=== PATIENT | female | born 1960 | race Caucasian/White ===

== ENCOUNTER 2023-11-04 20:04 | Emergency (ER) | payer SELFPAY ==
[2023-11-04 20:06] VITALS: BP 122/74
--- NOTE | 2023-11-04 22:24 | ED.MUSCINJ ---
HPI-Injury
General
Chief Complaint: Musculo-Skeletal Complaint
Source: patient
Exam Limitations: none
Time Seen by Provider: 11/04/23 22:06
History of Present Illness-Injury
Initial Injury comments:
63-year-old female presents complaining of persistent right knee pain. She received a lubricant injection [place], [facility], 1 month ago. Since then she has had increased pain to the knee. She is having her knee drained several
times. She came to the [facility] 2 days ago. Her daughter brought her here as she is having persistent pain. Mxqo-ewe-qlqbzue medications are not helping. No injury. No fever. No other complaints at this time
Phy Exam
Physical Exam
Physical Exam:
General: Well-appearing female no acute respiratory distress
Musculoskeletal exam: Right knee tender anteriorly and medially. There is a moderate effusion noted. She is able to fully extend her knee flexion is limited to about 50 degrees. No overlying erythema. No open wounds.
Extremities: No cyanosis
Skin: Warm, no erythema or rash
Injury Course
Orders/Labs/Results
Orders:
Orders
11/04/23 20:09
Knee, Right 4 or More Views [CR Knee- Right 4 Or More View*] Urgent
Comment:
Reason For Exam: pain, swelling
11/04/23 22:22
Knee Immobilizer Right-Treatme ONCE
Hydrocodone 5/APAP 325 [[place] 5/325] 1 tablet PO NOW STA
Prednisone [Deltasone] 50 mg PO NOW STA
MDM/Problems Addressed
Differential Diagnosis Includes:
Right knee discomfort. There is a small effusion. No skin changes or erythema. No fever. Do not suspect septic arthritis. X-rays demonstrate degenerative changes throughout the knee with moderate effusion. I suspect knee pain is related to
underlying degenerative changes versus adverse reaction to recent lubricant injection. Recommended a prednisone course. Will prescribe a limited supply of pain medication secondary to severe pain. Knee immobilizer applied and was referred to
orthopedics
*Critical Care Note
Total Time (30-74mins, 75-104mins- exclusive of procedures): Not Applicable
ED Attending Note
-
Portions of this chart may have been created with voice recognition software.� Occasional wrong word or��sound alike� substitutions may have occurred due to the inherent limitations of voice recognition software.
Discharge Plan
Departure
Patient Disposition: Home (Routine Discharge)
Date of Disposition: 11/04/23
Time of Disposition: :
Patient with high blood pressure during this ER visit?: No
Discharge Problem:
Knee pain
Instructions: Knee Pain (DC)
Prescriptions:
New
hydrocodone-acetaminophen 5-300 mg tablet
1 tab PO Q8H PRN (Reason: Pain) Qty: 10 0RF
prednisone 20 mg tablet
40 mg PO DAILY 5 Days Qty: 10 0RF
Referrals:
UNKNOWN - PT DOES,NOT KNOW [Family Provider] -
Activity Restrictions/Additional Instructions:
Use brace for support when ambulating. Use prednisone as directed. Use prescribed medicine as needed for severe pain. Follow-up with orthopedics for further evaluation
Interventions
Interventions:
*Risk Screen - Suicide Last Done: 11/04/23 21:19
*General Assessment Last Done: 11/04/23 21:19
*Neglect/Abuse Screening Last Done: 11/04/23 21:19
ED-Musculoskeletal Assessment Last Done: 11/04/23 21:19
Discharge Date and Time
Print Language: GABONESE
[2023-11-04] MEDS: DELTASONE 50 MG PO (22:34)
[2023-11-04] MEDS: NORCO 5/325 1 TABLET PO (22:34)
[2023-11-04 22:46] VITALS: BP 122/74
== END 2023-11-04 22:46 | disposition home or self-care (01) ==
LOC: EMR 20:04
PROVIDERS: EMERGENCY PHYSICIAN Emergency Medicine
DX: M25.561 Pain in right knee (principal); M25.461 Effusion, right knee; Z88.8 Allergy status to other drugs, medicaments and biological substances
CPT/HCPCS: 99283; 29505; 73564

== ENCOUNTER 2023-11-10 19:51 | Emergency (ER) | payer SELFPAY ==
[2023-11-10 19:55] VITALS: BP 143/77
[2023-11-10 21:03] VITALS: BMI 33.3
[2023-11-10 22:00] VITALS: BP 134/76
[2023-11-10] MEDS: DILAUDID 0.5 MG IV ×2 (22:14→23:39)
[2023-11-10 22:20] LABS: % Basophils 0.2 % (0-2); % Eosinophils 0.5 % (0-6); % Immature Granulocytes 0.5 % (0-0.5); % Lymphocytes 22.3 % (20.5-51.1); % Monocytes 5.5 % (1.7-9.3); Absolute Eosinophils 0.1 10^3/uL (0-0.7); Absolute Immature Granulocytes 0.1 10^3/uL (0-0.05); Absolute Lymphocytes 2.7 10^3/uL (1.2-3.4); Absolute Monocytes 0.7 10^3/uL (0.1-0.6); Absolute Neutrophils 8.6 10^3/uL (1.4-6.5); Hematocrit 39.7 % (37.0-47.0); Hemoglobin 13.2 g/dL (12.0-16.0); Mean Corp Hgb Conc. 33.2 g/dL (33.0-37.0); Mean Corpuscular Hgb 27.8 pg (27.0-31.0); Mean Corpuscular Volume 83.8 fL (81.0-99.0); Mean Platelet Volume 8.9 fL (7.4-10.4); Nucleated Red Blood Cells % 0 %; Platelet Count 353 10^3/uL (130-400); Red Blood Cell Count 4.74 10^6/uL (4.20-5.40); Red Cell Dist. Width 13.1 % (11.5-14.5); White Blood Cell Count 12.1 10^3/uL (4.8-10.8)
[2023-11-10 22:29] LABS: Erythrocyte Sed Rate 77 mm/hour (0-20)
[2023-11-10 22:38] LABS: Blood Urea Nitrogen 26 mg/dl (7-17); Calcium 9.9 mg/dl (8.4-10.2); Carbon Dioxide 28 mmol/L (22-30); Chloride 103 mmol/L (98-107); Estimated Creatinine Clearance 72 ml/min; Glucose 122 mg/dl (70-99); Potassium 4.3 mmol/L (3.5-5.1); Sodium 143 mmol/L (135-145); eGFR > 60.00
[2023-11-11] VITALS: BP 145/78
--- NOTE | 2023-11-11 00:32 | ED.GENMED ---
Addendum entered and electronically signed by Ronn Menendez PA-C 11/12/23 10:00:
Preliminary joint fluid culture shows presumptive Staphylococcus aureus with many white blood cells and no organisms seen on the Gram stain. Spoke with the patient's daughter who answers for her. The patient is at this moment being evaluated by
the orthopedic doctor in the office. I advised that they follow-up with the culture.
Original Note:
History of Present Illness
General
Chief Complaint: Musculo-Skeletal Complaint
Source: patient and family
Time Seen by Provider: 11/10/23 21:11
History of Present Illness
History of Present Illness:
63-year-old female who again presents with right knee pain. The patient had an injection and arthrocentesis in [facility] about 1 month ago. she recently came to the . She has an appointment with orthopedics but has not seen them yet. She was
seen in emergency department given steroids and pain control. She took all of the medications but the pain persist. The pain is persistent even when she is sitting in the chair. No fevers. No vomiting.
Past History
Past History
ED Past Medical History: HTN
ED Past Surgical History: Cholecystectomy
Phy Exam
Physical Exam
Physical Exam:
CONSTITUTIONAL Vital signs reviewed, Patient alert and oriented to person, place and time. Well-appearing
HEAD atraumatic, normocephalic.
EYES eyelids normal to inspection, Extraocular muscles intact, Conjunctiva normal, Sclera normal.
NECK normal range of motion, Trachea midline, no jugular venous distention.
RESP no respiratory distress
BACK No obvious deformities
UPPER EXTREMITY Gross Range of motion normal, gross motor strength normal
LOWER EXTREMITY unable to range the right knee. It is warm to touch when compared to the left. There is no redness. There is diffuse tenderness and she is unable to actively or passively range the right knee. She has normal distal pulses
NEURO Speech normal, No focal motor deficits include, London coma scale 15, Memory normal, Cranial Nerves intact to screening exam.
SKIN Skin warm, dry, and normal in color.
PSYCHIATRIC Patient oriented to person place and time, Normal affect.
Course
Orders/Labs/Results
Orders:
Orders
11/10/23 21:48
HYDROmorphone [Dilaudid] 0.5 mg IV NOW STA
11/10/23 22:12
Basic Metabolic Panel Urgent
CRP [C-Reactive Protein] Urgent
Complete Blood Count/With Diff Urgent
ESR [Erythrocyte Sed Rate] Urgent
11/10/23 22:23
Ondansetron Injectable [Zofran] 4 mg IV NOW STA
11/10/23 23:36
HYDROmorphone [Dilaudid] 0.5 mg IV NOW STA
11/10/23 23:48
Body Fluid Cell Count Urgent
What is the Body Fluid: joint
Date Specimen was Collected: 11/10/23
Time Specimen was Collected: 23:37
Comment: with DIFF
Body Fluid Crystals Urgent
What is the Body Fluid: joint
Date Specimen was Collected: 11/10/23
Time Specimen was Collected: 23:37
Body Fluid Glucose Urgent
Fluid Source: Other
Date Specimen was Collected: 11/10/23
Time Specimen was Collected: 23:37
Fluid Culture with Gram Stain Urgent
DIAMOND Source: Joint Fluid
Specimen Description:
Date Specimen was Collected: 11/10/23
Time Specimen was Collected: 23:37
11/11/23 00:46
Ondansetron Injectable [Zofran] 4 mg .ROUTE .STK-MED ONE
11/11/23 01:07
Ketorolac [Toradol] 15 mg IV NOW STA
Abnormal Lab Results
11/10/23
22:12
WBC 12.1 H 10^3/uL
(4.8-10.8)
Abs Immat Gran (auto) 0.1 H 10^3/uL
(0-0.05)
Absolute Neuts (auto) 8.6 H 10^3/uL
(1.4-6.5)
Absolute Monos (auto) 0.7 H 10^3/uL
(0.1-0.6)
ESR 77 H mm/hour
(0-20)
BUN 26 H mg/dl
(7-17)
Glucose 122 H mg/dl
(70-99)
C-Reactive Protein 34.30 H mg/L
(0.0-10.00)
11/10/23 22:12
11/10/23 22:12
Vital Signs
Initial and Last Documented VS:
Initial Vital Signs
Temp Pulse Resp BP Pulse Ox
98.3 F 69 18 143/77 98
11/10/23 19:55 11/10/23 19:55 11/10/23 19:55 11/10/23 19:55 11/10/23 19:55
Last Documented Vital Signs
Temp Pulse Resp BP Pulse Ox
98.5 F 88 16 145/78 96
11/10/23 22:00 11/11/23 00:00 11/11/23 00:00 11/11/23 00:00 11/11/23 00:00
Procedures
Incision/Drainage/Joint Aspiration
Right Knee:
Anethesia: 1% Lidocaine with Epi
Preparation: cleaned with Betadine
Type of procedure: aspiration
How much fluid was obtained?: number in mls (5mls)
Fluid description: cloudy and blood tinged
Treatment: left open for drainage and bandaid applied
MDM/Problems Addressed
MDM/Problems Addressed:
Knee pain
*Pulse Oximetry
Patient hypoxic: no
*Critical Care Note
Total Time (30-74mins, 75-104mins- exclusive of procedures): Not Applicable
Data Reviewed
Source: patient
Further Testing Considered But Not Given:
Consider repeat x-rays but she just had x-rays 6 days ago
Patient Management
Escalation/DeEscalation of care consider admission/obs:
Unable to run cell count but Gram stain shows no organisms. Patient does feel better and would like to go home
ED Attending Note
-
Portions of this chart may have been created with voice recognition software.� Occasional wrong word or��sound alike� substitutions may have occurred due to the inherent limitations of voice recognition software.
Discharge Plan
Departure
Patient Disposition: Home (Routine Discharge)
Date of Disposition: 11/11/23
Time of Disposition: 02:15
Patient with high blood pressure during this ER visit?: Yes
Discharge Problem:
Degenerative joint disease
Instructions: Osteoarthritis
Prescriptions:
New
hydrocodone-acetaminophen 5-325 mg tablet
2 tab PO Q6H PRN (Reason: Pain) Qty: 14 0RF
No Action
hydrocodone-acetaminophen 5-300 mg tablet
1 tab PO Q8H PRN (Reason: Pain) Qty: 10 0RF
prednisone 20 mg tablet
40 mg PO DAILY 5 Days Qty: 10 0RF
Referrals:
NONE,* [Family Provider] -
Activity Restrictions/Additional Instructions:
Please use ibuprofen every 6 hours. Return immediately for fevers, swelling, worsening pain or any other concerns. Please see orthopedics in follow-up as planned.
Interventions
Interventions:
*Risk Screen - Suicide Last Done: 11/10/23 19:55
*General Assessment Last Done: 11/10/23 19:55
*Neglect/Abuse Screening Last Done: 11/10/23 19:55
ED-Musculoskeletal Assessment Last Done: 11/10/23 21:03
Discharge Date and Time
Print Language: NEPALI
[2023-11-11 00:37] LABS: Body Fluid Glucose < 30 mg/dl
[2023-11-11] MEDS: ZOFRAN 4 MG IV (00:46)
[2023-11-11 00:52] LABS: Body Fluid Granulocytes 95 %; Body Fluid Lymphocytes 1 %; Body Fluid Macrophages 4 %
[2023-11-11] MEDS: TORADOL 15 MG IV (01:35)
[2023-11-11 02:45] VITALS: BP 142/69
== END 2023-11-11 02:45 | disposition home or self-care (01) ==
LOC: EMR 19:51
PROVIDERS: EMERGENCY PHYSICIAN Emergency Medicine
DX: M17.11 Unilateral primary osteoarthritis, right knee (principal); I10 Essential (primary) hypertension; Z90.49 Acquired absence of other specified parts of digestive tract
CPT/HCPCS: 99284; 20610; 96374; 96375; 96376; 80048; 82945; 85025; 85652; 86140; 87015; 87070; 87147; 87186; 87205; 89051; 89060

== ENCOUNTER 2023-11-12 13:29 | Inpatient (IN) | payer OTHER, SELFPAY ==
[2023-11-12] VITALS (17 sets, daily range): BP systolic 111–142; BP diastolic 55–79; BMI 33.0; BMI 31.5
--- NOTE | 2023-11-12 10:48 | ED.MUSCINJ ---
HPI-Injury
General
Chief Complaint: Musculo-Skeletal Complaint
Source: patient
Exam Limitations: none
Time Seen by Provider: 11/12/23 10:32
History of Present Illness-Injury
Initial Injury comments:
63-year-old female presents with persistent and increasing right knee pain. She was here 2 days ago had a knee aspiration performed and actually followed up with orthopedics today. At the time the orthopedic follow-up her culture did not return
however did return soon after and culture was reviewed and demonstrates possible presumptive Staphylococcus aureus in the knee. There are no crystals seen on the fluid analysis. Patient notes increased pain despite prednisone. She is recently
moved here from [facility]. Before moving here she had an injection in her knee of what sounds like a lubricant injection. She was seen here initially about 2 weeks ago thought to have an inflammatory response prescribe prednisone but pain did not
improve. She denies fevers. She is not a diabetic.
Past History
Past History
ED Past Medical History: HTN
ED Past Surgical History: Cholecystectomy
Phy Exam
Physical Exam
Physical Exam:
General: Uncomfortable appearing female no acute respiratory distress
HEENT: Normocephalic atraumatic
Heart: Regular rate and rhythm no murmur
Lungs: Clear no wheeze
Musculoskeletal exam: Right knee somewhat warm to the touch diffusely tender with limited range of motion. She has been at approximately 20 degrees however any attempt of straightening her knee or flexing her knee further reproduces significant
pain. No overlying erythema
Vascular: 2+ Dorsalis pedis pulse right foot
Injury Course
Orders/Labs/Results
Orders:
Orders
11/12/23 10:49
CRP [C-Reactive Protein] Urgent
Complete Blood Count/With Diff Urgent
Comprehensive Metabolic Panel Urgent
Sed Rate [Erythrocyte Sed Rate] Stat
Abnormal Lab Results
11/12/23
10:49
WBC 12.4 H 10^3/uL
(4.8-10.8)
Abs Immat Gran (auto) 0.1 H 10^3/uL
(0-0.05)
Absolute Neuts (auto) 9.3 H 10^3/uL
(1.4-6.5)
Absolute Monos (auto) 0.7 H 10^3/uL
(0.1-0.6)
Immature Gran % 0.6 H %
(0-0.5)
Lymphocytes % 18.1 L %
(20.5-51.1)
ESR 96 H mm/hour
(0-20)
BUN 23 H mg/dl
(7-17)
Glucose 118 H mg/dl
(70-99)
C-Reactive Protein 158.60 H mg/L
(0.0-10.00)
11/12/23 10:49
11/12/23 10:49
MDM/Problems Addressed
Differential Diagnosis Includes:
Patient here recently and called back secondary to bacteria showing up in synovial fluid culture from right knee. On exam her knee is exquisitely tender with decreased range of motion. Concerned now at this point is septic arthritis. There is no
crystals seen on the analysis. Will check labs and inflammatory markers.
*Critical Care Note
Total Time (30-74mins, 75-104mins- exclusive of procedures): Not Applicable
Update Note
Update Note:
Sed rate and CRP and white blood cell count in the blood work are elevated. Concern is septic arthritis. Notified orthopedics as well as medicine. Patient last had anything to eat or drink at 8 AM this morning. She had ibuprofen with a couple
sips of water. Patient was told to be n.p.o. Held off on antibiotics for surgical intervention
ED Attending Note
-
Portions of this chart may have been created with voice recognition software.� Occasional wrong word or��sound alike� substitutions may have occurred due to the inherent limitations of voice recognition software.
Discharge Plan
Departure
Patient Disposition: Admit
Date of Disposition: 11/12/23
Time of Disposition: 12:26
Admit to: Med/Surg
Presentation/result/management discussed w/ accepting MD/DO: Hospitalist
Discharge Problem:
Septic arthritis
Prescriptions:
No Action
hydrocodone-acetaminophen 5-300 mg tablet
1 tab PO Q8H PRN (Reason: Pain) Qty: 10 0RF
prednisone 20 mg tablet
40 mg PO DAILY 5 Days Qty: 10 0RF
hydrocodone-acetaminophen 5-325 mg tablet
2 tab PO Q6H PRN (Reason: Pain) Qty: 14 0RF
Referrals:
NONE,* [Family Provider] -
Interventions
Interventions:
*Risk Screen - Suicide Last Done: 11/12/23 10:25
*General Assessment Last Done: 11/12/23 10:25
*Neglect/Abuse Screening Last Done: 11/12/23 10:25
*ED COVID-19 Vaccine History Last Done: 11/12/23 10:25
ED-Musculoskeletal Assessment Last Done: 11/12/23 10:52
Discharge Date and Time
Print Language: SLOVENIAN
[2023-11-12 11:04] LABS: % Basophils 0.2 % (0-2); % Eosinophils 0.7 % (0-6); % Immature Granulocytes 0.6 % (0-0.5); % Lymphocytes 18.1 % (20.5-51.1); % Monocytes 5.3 % (1.7-9.3); % Neutrophils 75.1 % (42.2-75.2); Absolute Eosinophils 0.1 10^3/uL (0-0.7); Absolute Immature Granulocytes 0.1 10^3/uL (0-0.05); Absolute Lymphocytes 2.2 10^3/uL (1.2-3.4); Absolute Monocytes 0.7 10^3/uL (0.1-0.6); Absolute Neutrophils 9.3 10^3/uL (1.4-6.5); Hematocrit 37.6 % (37.0-47.0); Hemoglobin 12.4 g/dL (12.0-16.0); Mean Corpuscular Hgb 27.8 pg (27.0-31.0); Mean Corpuscular Volume 84.3 fL (81.0-99.0); Mean Platelet Volume 9.3 fL (7.4-10.4); Nucleated Red Blood Cells % 0 %; Platelet Count 363 10^3/uL (130-400); Red Blood Cell Count 4.46 10^6/uL (4.20-5.40); Red Cell Dist. Width 13.2 % (11.5-14.5); White Blood Cell Count 12.4 10^3/uL (4.8-10.8)
[2023-11-12 11:09] LABS: Erythrocyte Sed Rate 96 mm/hour (0-20)
[2023-11-12 11:17] LABS: ALT (SGPT) 16 U/L (0-35); AST (SGOT) 16 U/L (14-36); Albumin 3.7 g/dl (3.5-5.0); Alkaline Phosphatase 86 U/L (38-126); Blood Urea Nitrogen 23 mg/dl (7-17); Calcium 9.9 mg/dl (8.4-10.2); Carbon Dioxide 30 mmol/L (22-30); Chloride 100 mmol/L (98-107); Estimated Creatinine Clearance 62 ml/min; Glucose 118 mg/dl (70-99); Potassium 3.9 mmol/L (3.5-5.1); Sodium 142 mmol/L (135-145); Total Bilirubin 0.6 mg/dl (0.2-1.3); Total Protein 6.9 g/dl (6.3-8.2); eGFR > 60.00
--- NOTE | 2023-11-12 12:32 | HPS.HSE ---
Addendum entered and electronically signed by YUSEF Rivera 11/12/23 14:23:
please NOte Pt is from [facility] NOT [facility]
Addendum entered and electronically signed by Quan Martinez MD 11/12/23 14:14:
I saw and examined the patient.
The DIRECTOR OF VOLUNTEER SERVICES or PA's note was reviewed and I agree with the note.
Comment: 63-year-old female with history of hypertension, arthritis came to the hospital with right knee pain and swelling. Patient has been here previously and was discharged with orthopedics follow-up. Patient also had arthrocentesis which was
consistent with Staph aureus. Consult orthopedics, ID. N.p.o. for OR. Will need antibiotics after surgery. Recently moved from [facility]. Discussed with son-in-law at bedside.
General: Conversant, Pain and Obese
HEENT: NormoCephalic, Anicteric, Moist mucous membranes
Cardiac: S1/S2 and Regular Rhythm; No Murmur
Breast: Deferred by me
GI: Soft, Non Tender, Non Distended, Normal Bowel Sounds
Rectal: Deferred by Provider
Genito-urinary: Deferred by me
Musculoskeletal: No Clubbing, No Cyanosis, No Edema and Other (Right knee pain, right knee swelling, limited extension of right knee secondary to joint swelling, calf nontender, distal sensation is intact)
Neuro: AO x 3 (Per son-in-law at bedside translating Greenlandic), Cranial Nerves Intact and No Sensory Deficits; No Slurred Speech, Facial Droop or Tremors
Psych: Calm
I spent a total of 77 minutes with the patient or on the floor. More than 50% of this time involved counseling and coordination of care.
Original Note:
Family Physician
-
Family Physician: * NONE
Chief Complaint
-
Right knee pain, swelling
History of Present Illness
63-year-old female complaining of increased pain to her right knee with swelling. She had knee aspiration performed 2 days ago 11/10/2023 by emergency department. She followed up with Ortho today her culture today did show Staphylococcus aureus
from that aspiration. There were no crystals in her fluid analysis. She was sent to ER for admission. She was seen in the ED and has been on oral prednisone 40 mg for the past 5 days since
11/04/2023 for pain without relief. She recently moved here from [facility] where she had prior injections in the knee with hyaluronic acid injections confirmed with daughter and son-in-law via entry operator maxi. She reported pain 2 days after her
injection to her knee while in [place] along with a 2-day grade fever. She has had injections of the same hyaluronic acid to her left knee without complications. She just arrived 1 week ago from [facility] to permanently live with her daughter here
in the [facility]. She is currently no green card no health insurance and is waiting for paperwork to be processed. She denies fever, chills, chest pain, palpitations, shortness with, cough, abdominal pain, nausea, vomiting, diarrhea, urinary symptoms.
She has past medical history of hypertension. She has never had any complications with anesthesia
Medical History
Past Medical History
Past Medical History: Reports Other
Additional Past Medical History:
HTN
Degenerative joint disease
Past Surgical History: Reports Other
Additional Past Surgical History:
Cholecystectomy
Right knee hyaluronic acid injection few weeks ago
History of multiple hyaluronic acid injections to left knee
Social History
Tobacco: Smoker
Alcohol: None
Drug: None
Personal: Single
Living: With Family (Daughter, son-in-law and multiple children)
Employment: Retired
Family History
Family History: Other (Mother complications hypertension, father age 93 unsure)
Allergies / Home Medications
Allergies reflects when Allergies were last updated in [facility].
Home Medications with original date entered in [facility]
Allergy/Medication List:
Allergies
Allergy/AdvReac Type Severity Reaction Status Date / Time
nicitinic acid - vitamin b-3 Allergy Itching Uncoded 11/12/23 13:13
Home Medications
Lercanidipine 10 Mg 10 mg PO QPM Blood Pressure 11/12/23
Thrombopol 75 Mg 75 mg PO HS blood thinner 11/12/23
bisoprolol fumarate 5 mg tablet 5 mg PO DAILY Blood Pressure 11/12/23
hydrocodone 5 mg-acetaminophen 300 mg tablet 1 tab PO Q8H PRN severe Pain 11/12/23
ibuprofen 200 mg tablet 200 mg PO Q6H PRN mild pain 11/12/23
Review of Systems
-
History Source: Family (Daughter virgilio translating via phone and son-in-law translating at bedside)
Constitutional: Denies Fever, Fatigue or Chills
EENT: Denies Sore Throat or Runny Nose
Respiratory: Denies Cough or Trouble Breathing
Cardiac: Denies Chest Pain, Diaphoresis, Palpitations or Syncope
Abdomen/GI: Denies Abdominal Pain, Nausea, Vomiting, Diarrhea, Constipated, Bloody Stools or Black Stools
: Denies Dysuria, Frequency, Flank Pain, Incontinence, Difficulty Voiding or Urgency
Musculoskeletal: Reports Joint Pain (Right knee), Joint Swelling (Right knee), Edema (Right knee) and Other (Limited extension of right knee secondary to joint swelling)
Skin: Denies Itching or Rash
Neurological: Denies Dizzy, Headache or Weakness
Endocrine: Reports No Symptoms
Hematologic/Lymphatic: Reports No Symptoms
Psych: Reports Calm
Physical Exam
Vital Signs
Vital Signs
Temp Pulse Resp BP Pulse Ox
98.1 F 79 10 122/56 98
11/12/23 10:25 11/12/23 10:48 11/12/23 10:45 11/12/23 10:48 11/12/23 10:48
Physical Exam
General: Conversant, Pain and Obese; No Fever or Chills
HEENT: NormoCephalic, Anicteric, Moist mucous membranes, PERRLA, [place] Conjunctivae and No Ptosis
Respiratory: Clear; No Wheezes, Rales or Rhonchi
Cardiac: S1/S2 and Regular Rhythm; No Murmur, Rub, Gallop or Peripheral Edema
Breast: Deferred by me
GI: Soft, Non Tender, Non Distended, Normal Bowel Sounds and No Hepatosplenomegaly
Rectal: Deferred by Provider
Genito-urinary: Deferred by me
Musculoskeletal: No Clubbing, No Cyanosis, No Edema and Other (Right knee pain, right knee swelling, limited extension of right knee secondary to joint swelling, calf nontender, distal sensation is intact)
Skin: Warm and Dry; No Rash
Neuro: AO x 3 (Per son-in-law at bedside translating Greenlandic), Cranial Nerves Intact and No Sensory Deficits; No Slurred Speech, Facial Droop or Tremors
Psych: Calm
Laboratory Results
-
11/12/23 10:49
11/12/23 10:49
Laboratory Results
Total Bilirubin 0.6 mg/dl (0.2-1.3) 11/12/23 10:49
AST 16 U/L (14-36) 11/12/23 10:49
ALT 16 U/L (0-35) 11/12/23 10:49
Alkaline Phosphatase 86 U/L (38-126) 11/12/23 10:49
Data Reviewed
-
Lab Data: Labs Reviewed by me
Impression/Plan
-
Impression/plan:
Admit to [facility]
Right knee pain/swelling concern for septic arthritis s/p hyaluronic acid injection several weeks ago and is [place]
-WBC 12.4, afebrile
CRP 158.6
-Joint fluid aspiration 11/10/2023 growing Staphylococcus aureus
-Consult Ortho
-Consult ID
-N.p.o. for washout today 11/12/2023
-Hold antibiotics until after surgery per Ortho
-PT/OT/case management consult-patient currently has no green card, no health insurance to cover any healthcare and/or medications
#HTN�benign
BP 122/56
-Continue bisoprolol 5 mg daily
Hold prior hypertensive meds from [facility]
#Obesity due to excess calorie consumption�BMI 33
Weight loss recommended
DVT prophylaxis
Postsurgery May start subcu Lovenox
Full code daughter Virgilio translating via phone and son-in-law translating via bedside as patient speaks Greenlandic but is from [facility]
--- NOTE | 2023-11-12 14:14 | W.PN.UPDATE ---
Update Note
Progress Note Update
For billing purposes only
--- NOTE | 2023-11-12 15:02 | W.PN.UPDATE ---
Update Note
Progress Note Update
Full consult dictated. 63 yo female from [facility] brought to ER with right knee pain. [place] country 6 [place] ago and pain for 5 weeks with difficulty with ambulation. Cultures from ER 2 days ago reveal Staph aureus. Have spoken
with the patient and son in law who translates. Have recommended arthroscopic I&D of the right knee. Risks, benefits, complications and postop expectations discussed. The procedure was discussed. Informed consent obtained. OR today as OR
permits. ID consult. Patient not on antibiotics. Will reculture and start Ancef.
[2023-11-12] MEDS: ZOFRAN 4 MG IV (16:46)
[2023-11-12] MEDS: DILAUDID 0.5 MG IV ×3 (16:48→17:19)
[2023-11-12] MEDS: COMPAZINE 5 MG IV (17:05)
[2023-11-12] MEDS: ANCEF 10 IV (21:26)
[2023-11-12] MEDS: ROXICODONE 5 MG PO (21:35)
[2023-11-13] MEDS: ROXICODONE 5 MG PO ×2 (02:16→06:13)
[2023-11-13 03:00] VITALS: BP 120/66
[2023-11-13] MEDS: ANCEF 10 IV ×3 (06:13→21:42)
[2023-11-13 07:00] VITALS: BP 122/61
[2023-11-13 08:31] LABS: % Basophils 0.1 % (0-2); % Immature Granulocytes 0.4 % (0-0.5); % Lymphocytes 13.9 % (20.5-51.1); % Neutrophils 81.6 % (42.2-75.2); Absolute Immature Granulocytes 0.1 10^3/uL (0-0.05); Absolute Lymphocytes 1.7 10^3/uL (1.2-3.4); Absolute Monocytes 0.5 10^3/uL (0.1-0.6); Absolute Neutrophils 10.1 10^3/uL (1.4-6.5); Hematocrit 35.1 % (37.0-47.0); Hemoglobin 11.6 g/dL (12.0-16.0); Mean Corpuscular Hgb 27.8 pg (27.0-31.0); Mean Platelet Volume 9.3 fL (7.4-10.4); Nucleated Red Blood Cells % 0 %; Platelet Count 360 10^3/uL (130-400); Red Blood Cell Count 4.18 10^6/uL (4.20-5.40); White Blood Cell Count 12.4 10^3/uL (4.8-10.8)
[2023-11-13 08:33] LABS: ALT (SGPT) 14 U/L (0-35); AST (SGOT) 16 U/L (14-36); Albumin 3.5 g/dl (3.5-5.0); Alkaline Phosphatase 89 U/L (38-126); Blood Urea Nitrogen 14 mg/dl (7-17); Calcium 9.2 mg/dl (8.4-10.2); Carbon Dioxide 31 mmol/L (22-30); Chloride 96 mmol/L (98-107); Estimated Creatinine Clearance 85 ml/min; Glucose 124 mg/dl (70-99); Potassium 4.7 mmol/L (3.5-5.1); Sodium 139 mmol/L (135-145); Total Bilirubin 0.4 mg/dl (0.2-1.3); Total Protein 6.5 g/dl (6.3-8.2); eGFR > 60.00
--- NOTE | 2023-11-13 08:36 | CON.ID ---
Consultation
-
Date/Time Consultation Requested: November 12, 2023
Date/Time Consultation Performed: November 13, 2023
Requesting Provider: Dr. Quan Martinez
Performing Provider: Dr. Lalita Up
Reason for Consultation: Septic knee
Chief Complaint / Past History
Chief Complaint
Right knee pain and swelling
History of Present Illness
63-year-old female from [facility] who just recently came to the [facility] about a week and a half ago to stay with her daughter permanently. She was sent to ED from Ortho office 11/11 due to septic knee. She has history of bilateral knee
osteoarthritis and receives injections [place] her [place] country. The right knee received hyaluronic acid injection approximately 6 weeks ago in [facility]. Approximately 2 weeks after the procedure she started having right knee pain, edema, and
redness. Also had subjective fevers. [place] presented to the ER on November 11. The knee was tapped. She was therefore referred to orthopedic who saw her yesterday November 11. By then the synovial fluid returned positive for Staphylococcus
aureus. She was taken to the OR yesterday status post washout of the knee prior to antibiotic. She is currently on cefazolin. Today reports knee pain is controlled. No other complaints.
Past History
Additional Past Medical History:
HTN
bilateral knee OA, s/p multiple hyaluronic acid injection
Cholecystectomy
Allergy History:
nicitinic acid - vitamin b-3 Allergy (Uncoded 11/12/23 13:13)
Itching
Medications Reviewed: Yes
Current Antibiotics:
cefazolin
Social History
Tobacco: Non-Smoker
Alcohol: None
Drug: None
Living: With Family (From [facility], came to [place] mid[place]October 2023 to live with daughter and her family.)
Family History
Family History: Not Pertinent
Review of Systems
Vital Signs
Temp Pulse Resp BP Pulse Ox
98.3 F 84 16 120/66 98
11/13/23 03:00 11/13/23 03:00 11/13/23 03:00 11/13/23 03:00 11/13/23 03:00
Physical Exam
Physical Exam
Constitutional: No Acute Distress and Comfortable
Eyes: No Conjunctival Hemorrhage and Sclera Anicteric
Cardiovascular: Regular Rate and S1/S2
Pulmonary: Clear
Gastrointestinal: Soft, Non Tender, Non Distended and Normal Bowel Sounds
Genito-Urinary: Negative CVA Tenderness
Extremities: Negative Edema
Musculoskeletal: Other (Right knee - postop dressing in place)
Lab / Diagnostic Study Results
11/13/23 06:47
11/13/23 06:47
Abs Immat Gran (auto) 0.1 10^3/uL (0-0.05) H 11/13/23 06:47
Absolute Neuts (auto) 10.1 10^3/uL (1.4-6.5) H 11/13/23 06:47
Absolute Lymphs (auto) 1.7 10^3/uL (1.2-3.4) 11/13/23 06:47
Absolute Monos (auto) 0.5 10^3/uL (0.1-0.6) 11/13/23 06:47
Absolute Basos (auto) 0.0 10^3/uL (0-0.2) 11/13/23 06:47
Immature Gran % 0.4 % (0-0.5) 11/13/23 06:47
Neutrophils % 81.6 % (42.2-75.2) H 11/13/23 06:47
Lymphocytes % 13.9 % (20.5-51.1) L 11/13/23 06:47
Monocytes % 4.0 % (1.7-9.3) 11/13/23 06:47
Eosinophils % 0.0 % (0-6) 11/13/23 06:47
Basophils % 0.1 % (0-2) 11/13/23 06:47
ESR 96 mm/hour (0-20) H 11/12/23 10:49
C-Reactive Protein 158.60 mg/L (0.0-10.00) H 11/12/23 10:49
Microbiology Results
Micro:
11/12/23 15:51 Anaerobic Culture - Preliminary
Knee - Right
11/12/23 15:51 Wound Culture - Preliminary
Knee - Right Gram Stain - Final
Assessment / Plan
# [place] right knee MSSA septic arthritis s/p washout 11/12/23.
- Continue cefazolin 2g IV q8h x 6 weeks.
- Pt without insurance, Green Card, etc. and therefore may not afford self-pay outpatient IV abx.
--- NOTE | 2023-11-13 09:17 | W.PN.UPDATE ---
Update Note
Progress Note Update
Patient seen and examined. Daughter translated by phone. Patient with pain today but slightly better than yesterday. Resting in bed with her knee flexed. AVSS. Pulm: nonlabored. Right knee with swelling and no erythema. Calf soft. Gram
stain from intraop shows gram positive cocci. WBC 12.4. ID consult for antibiotic recommendations. OOB with PT. Will follow.
[2023-11-13] MEDS: ROXICODONE 10 MG PO ×3 (10:15→20:00)
--- NOTE | 2023-11-13 11:21 | W.PN.HOSP.TC ---
Today's Communication/Plan
-
Monitor vital signs
see plan
Pain control
Continue to follow cultures
Continue antibiotics
Daughter updated over the phone
Assessment / Plan
Assessment / Plan
General: Conversant, Pain and Obese
HEENT: NormoCephalic, Anicteric, Moist mucous membranes
Cardiac: S1/S2 and Regular Rhythm; No Murmur
GI: Soft, Non Tender, Non Distended, Normal Bowel Sounds
Musculoskeletal: right knee charlene bandage
Neuro: AO x 3
Psych: Calm
Right knee pain/swelling concern for septic arthritis s/p hyaluronic acid injection [place]
-WBC 12.4, afebrile
CRP 158.6
-Joint fluid aspiration 11/10/2023 growing Staphylococcus aureus
s/p OR by ortho 11/11; OR cx growing gram +
ID following; cw abx per ID
dispo would be challenging since lack of insurance and no greencard and Social security yet
-PT/OT/case management consult-patient currently has no green card, no health insurance to cover any healthcare and/or medications
#HTN�benign
BP 122/56
-Continue bisoprolol 5 mg daily
#Obesity due to excess calorie consumption�BMI 33
Weight loss recommended
DVT prophylaxis
lovenox
Full code
Anticipated Discharge: > 48 hours
Subjective/Interval History
-
Date of Service: November 13, 2023
has pain
Objective Data
-
Labs:
Laboratory Results
11/13/23
06:47
WBC 12.4 H
Hgb 11.6 L
Hct 35.1 L
Plt Count 360
Sodium 139
Potassium 4.7
Chloride 96 L
Carbon Dioxide 31 H
BUN 14
Creatinine 0.6
Glucose 124 H
Calcium 9.2
Total Bilirubin 0.4
AST 16
ALT 14
Alkaline Phosphatase 89
Vital Signs:
Vital Signs
Temp Pulse Resp BP Pulse Ox
99.5 F 83 16 122/61 98
11/13/23 07:00 11/13/23 07:00 11/13/23 07:00 11/13/23 07:00 11/13/23 10:45
I&O
11/12/23 11/13/23 11/14/23
06:59 06:59 06:59
Intake Total 200 / 200
Balance 200 / 200
[2023-11-13 11:22] VITALS: BP 130/70
[2023-11-13 15:46] VITALS: BP 138/65
[2023-11-13] MEDS: LOVENOX 40 MG SC (17:03)
[2023-11-13 19:56] VITALS: BP 129/57
[2023-11-13 23:42] VITALS: BP 125/66
[2023-11-14] MEDS: ROXICODONE 10 MG PO ×4 (03:25→18:05)
[2023-11-14] MEDS: ANCEF 10 IV ×3 (06:10→22:17)
[2023-11-14 07:53] VITALS: BP 139/71
[2023-11-14] MEDS: ZEBETA 5 MG PO (07:55)
[2023-11-14 08:23] LABS: % Basophils 0.2 % (0-2); % Eosinophils 0.3 % (0-6); % Immature Granulocytes 0.6 % (0-0.5); % Lymphocytes 26.8 % (20.5-51.1); % Monocytes 6.4 % (1.7-9.3); % Neutrophils 65.7 % (42.2-75.2); Absolute Immature Granulocytes 0.1 10^3/uL (0-0.05); Absolute Lymphocytes 2.4 10^3/uL (1.2-3.4); Absolute Monocytes 0.6 10^3/uL (0.1-0.6); Absolute Neutrophils 5.9 10^3/uL (1.4-6.5); Hematocrit 35.8 % (37.0-47.0); Hemoglobin 11.8 g/dL (12.0-16.0); Mean Corpuscular Hgb 28.6 pg (27.0-31.0); Mean Corpuscular Volume 86.9 fL (81.0-99.0); Mean Platelet Volume 9.2 fL (7.4-10.4); Nucleated Red Blood Cells % 0 %; Platelet Count 341 10^3/uL (130-400); Red Blood Cell Count 4.12 10^6/uL (4.20-5.40); Red Cell Dist. Width 13.1 % (11.5-14.5)
[2023-11-14 08:47] LABS: ALT (SGPT) < 10 U/L (0-35); AST (SGOT) 15 U/L (14-36); Albumin 3.4 g/dl (3.5-5.0); Alkaline Phosphatase 80 U/L (38-126); Blood Urea Nitrogen 16 mg/dl (7-17); Carbon Dioxide 30 mmol/L (22-30); Chloride 96 mmol/L (98-107); Estimated Creatinine Clearance 72 ml/min; Glucose 104 mg/dl (70-99); Potassium 4.2 mmol/L (3.5-5.1); Sodium 137 mmol/L (135-145); Total Bilirubin 0.5 mg/dl (0.2-1.3); Total Protein 6.3 g/dl (6.3-8.2); eGFR > 60.00
[2023-11-14 09:40] VITALS: BP 119/70; BP 133/73; PULSE 73; O2SAT 96
[2023-11-14] MEDS: DILAUDID 1 MG IV ×3 (09:43→19:35)
[2023-11-14 09:45] VITALS: BP 119/70; BP 133/73; PULSE 83; O2SAT 96
--- NOTE | 2023-11-14 10:09 | W.PN.ID1 ---
Date of Service
Date of Service: November 14, 2023
Today's Communication
Continue ceazolin.
Assessment / Plan
# [place] right knee MSSA septic arthritis s/p washout 11/12/23. OR cx GPC
- Continue cefazolin 2g IV q8h x 6 weeks.
- Pt without insurance, Green Card, etc. and therefore may not afford self-pay outpatient IV abx.
- Await [employer]'s input.
Chief Complaint
-: Other (septic knee)
Subjective / Review of Systems
Daughter at bedside.
Pt right knee pain after PT.
Vital Signs / Physical Exam
Vital Signs
Vital Signs
Temp Pulse Resp BP Pulse Ox
99.1 F 96 20 139/71 94
11/14/23 07:53 11/14/23 07:55 11/14/23 07:53 11/14/23 07:55 11/14/23 07:53
Physical Exam
Constitutional: No Acute Distress
Musculoskeletal: Other (right knee dressing dry)
Objective Data
Lab Data
Lab Results
11/14/23 07:44
11/14/23 07:44
ESR 96 mm/hour (0-20) H 11/12/23 10:49
Estimated Creat Clear 72 ml/min 11/14/23 07:44
Total Bilirubin 0.5 mg/dl (0.2-1.3) 11/14/23 07:44
AST 15 U/L (14-36) 11/14/23 07:44
ALT < 10 U/L (0-35) 11/14/23 07:44
Alkaline Phosphatase 80 U/L (38-126) 11/14/23 07:44
C-Reactive Protein 158.60 mg/L (0.0-10.00) H 11/12/23 10:49
Most recent labs reviewed.
Micro Results:
11/12/23 15:51 Anaerobic Culture - Preliminary
Knee - Right
11/12/23 15:51 Wound Culture - Preliminary
Knee - Right Gram Stain - Final
[2023-11-14] MEDS: VISBIOME 2 CAP PO (11:39)
--- NOTE | 2023-11-14 13:03 | W.PN.HOSP.TC ---
Today's Communication/Plan
-
Cont Abx
MRI knee
Assessment / Plan
Assessment / Plan
63[place] with PMHx of advanced b/l knee OA had hyaluronic injection into her knees in September 2023 and after the injection into R knee - developed worsening swelling and pain. [place] was [place] to the hospital.
Found MSSA septic arthritis
A/P:
#R knee septic artritis related to recent hylauronic injection
Joint aspiration with MSSA
ID follows, cont Ancef IV for 6 weeks. Non-documented - CM for outpatient options
PT/OT
Pain mgmt
MRI knee
#essential HTN
#Obesity with BMI 33
cont home meds
Advise to decrease calorie intake
DVT ppx lovenox
Full code
I have spent at least 57min reviewing chart, test results, communication with consultants and direct patient care
Anticipated Discharge: > 48 hours
Subjective/Interval History
-
Date of Service: November 14, 2023
Objective Data
-
Labs:
Laboratory Results
11/14/23
07:44
WBC 9.0
Hgb 11.8 L
Hct 35.8 L
Plt Count 341
Sodium 137
Potassium 4.2
Chloride 96 L
Carbon Dioxide 30
BUN 16
Creatinine 0.7
Glucose 104 H
Calcium 9.0
Total Bilirubin 0.5
AST 15
ALT < 10
Alkaline Phosphatase 80
Vital Signs:
Vital Signs
Temp Pulse Resp BP Pulse Ox
99.1 F 96 20 139/71 94
11/14/23 07:53 11/14/23 07:55 11/14/23 07:53 11/14/23 07:55 11/14/23 07:53
I&O
11/13/23 11/14/23 11/15/23
06:59 06:59 06:59
Intake Total 200 / 200 700 / 700
Balance 200 / 200 700 / 700
Review of Systems
-
History Source: Patient
All other systems: Reviewed and negative
Physical Exam
-
General: Well Developed, Well Nourished and No Apparent Distress
Respiratory: Clear to Auscultation
Cardiac: Regular Rhythm
GI: Soft, Nontender and Nondistended
Musculoskeletal: Other (R knee swelling without redness)
Skin: Warm
Neuro: Awake, Alert, Oriented and AO x 3
Psych: Calm
--- NOTE | 2023-11-14 13:19 | W.PN.UPDATE ---
Update Note
Progress Note Update
Patient seen and examined. Afebrile. Right knee with swelling and no erythema. Pain with ROM. Use of die tester through iPad in the hospital to communicate. She states that her pain has improved some since surgery but feels that she has bone
rubbing in her knee. I told her that she needs to work on ROM as she will likely develop scar tissue secondary to her infection. I also relayed that it would take many weeks for her to improve as the antibiotics need to help clearing the
infection. WBC decreased. Methicillin sensitive Staph growing on cultures. Appreciate Hospitalist and ID services and care. Will follow.
[2023-11-14 14:39] VITALS: BP 126/65
--- NOTE | 2023-11-14 16:30 | CM ---
CM contacted [facility] to request contact with Janine's daughter to begin the application process for MA. VM left for Janine's daughter to make her aware that she will be receiving a call from [facility].
SNF is being recommended for discharge, however with no insurance, there is a financial barrier for SNF.
CM will continue to follow. Will discuss further when Janine's daughter returns the call.
Plan: Application for MA to be started by [facility] when able. CM will continue to follow.
[2023-11-14] MEDS: LOVENOX 40 MG SC (17:10)
[2023-11-14] MEDS: ZOFRAN 4 MG IV (20:43)
[2023-11-14 23:46] VITALS: BP 124/74
[2023-11-15] MEDS: DILAUDID 1 MG IV ×4 (00:06→23:31)
[2023-11-15] MEDS: TYLENOL 650 MG PO (03:43)
[2023-11-15] MEDS: ANCEF 10 IV ×3 (05:59→22:10)
[2023-11-15 07:11] VITALS: BP 114/68
[2023-11-15] MEDS: ROXICODONE 10 MG PO ×4 (07:32→20:37)
[2023-11-15 08:44] LABS: % Basophils 0.1 % (0-2); % Eosinophils 0.5 % (0-6); % Immature Granulocytes 0.4 % (0-0.5); % Lymphocytes 23.4 % (20.5-51.1); % Monocytes 6.1 % (1.7-9.3); % Neutrophils 69.5 % (42.2-75.2); Absolute Monocytes 0.5 10^3/uL (0.1-0.6); Absolute Neutrophils 5.8 10^3/uL (1.4-6.5); Hemoglobin 11.5 g/dL (12.0-16.0); Mean Corp Hgb Conc. 32.9 g/dL (33.0-37.0); Mean Corpuscular Hgb 27.8 pg (27.0-31.0); Mean Corpuscular Volume 84.7 fL (81.0-99.0); Mean Platelet Volume 9.2 fL (7.4-10.4); Nucleated Red Blood Cells % 0 %; Platelet Count 331 10^3/uL (130-400); Red Blood Cell Count 4.13 10^6/uL (4.20-5.40); Red Cell Dist. Width 12.9 % (11.5-14.5); White Blood Cell Count 8.3 10^3/uL (4.8-10.8)
[2023-11-15 09:05] LABS: ALT (SGPT) 35 U/L (0-35); AST (SGOT) 36 U/L (14-36); Albumin 3.3 g/dl (3.5-5.0); Alkaline Phosphatase 134 U/L (38-126); Blood Urea Nitrogen 15 mg/dl (7-17); Calcium 9.3 mg/dl (8.4-10.2); Carbon Dioxide 32 mmol/L (22-30); Chloride 93 mmol/L (98-107); Estimated Creatinine Clearance 72 ml/min; Glucose 145 mg/dl (70-99); Potassium 4.2 mmol/L (3.5-5.1); Sodium 135 mmol/L (135-145); Total Bilirubin 0.4 mg/dl (0.2-1.3); Total Protein 6.5 g/dl (6.3-8.2); eGFR > 60.00
--- NOTE | 2023-11-15 09:30 | PTCARENOTE ---
Pt was not able to transfer from stretcher to table due to pain and inability to straighten her leg out. PRN pain medication was given prior.
--- NOTE | 2023-11-15 11:10 | W.PN.UPDATE ---
Update Note
Progress Note Update
Patient seen and examined with her daughter at her bedside to translate. Fever last evening. Afebrile now. VSS. RLE: Portals clean, dry and intact. No erythema. No effusion. Swelling noted and patient continues to hold knee in flexed
position. Calf soft. No ankle swelling. WBC 10 today. Continue IV antibiotics. Will continue to follow. Expressed to daughter and patient that it would take some time for her knee to feel better and that she needs to work hard on ROM.
--- NOTE | 2023-11-15 11:31 | W.PN.HOSP.TC ---
Today's Communication/Plan
-
Bcx since reoccurence of fever
Cont Abx
Assessment / Plan
Assessment / Plan
63yo F from [facility], [place] speaking with PMHx of advanced b/l knee OA had hyaluronic injection into her knees in September 2023 and after the injection into R knee - developed worsening swelling and pain. [place] was [place] to the hospital.
Found MSSA septic arthritis. Discharge complicated by the need in 6 weeks of IV Abx and patient just recently in [place] without medical insurance. 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
A/P:
#R knee septic arthritis related to recent hyaluronic injection
Joint aspiration with MSSA
ID follows, cont Ancef IV for 6 weeks. Non-documented - CM for outpatient options
PT/OT and emphasize need to improve ROM
Pain mgmt
MRI knee - could not tolerate positioning, cancelled
#essential HTN
#Obesity with BMI 33
cont home meds
Advise to decrease calorie intake
#Mild Alk.phos elevation
With no clinical signs of abd pain
will follow clinically
Imaging if worsening
DVT ppx lovenox
Full code
I have spent at least 57min reviewing chart, test results, communication with consultants and direct patient care
Anticipated Discharge: > 48 hours
Subjective/Interval History
-
Date of Service: November 15, 2023
Objective Data
-
Labs:
Laboratory Results
11/15/23
07:08
WBC 8.3
Hgb 11.5 L
Hct 35.0 L
Plt Count 331
Sodium 135
Potassium 4.2
Chloride 93 L
Carbon Dioxide 32 H
BUN 15
Creatinine 0.7
Glucose 145 H
Calcium 9.3
Total Bilirubin 0.4
AST 36
ALT 35
Alkaline Phosphatase 134 H
Vital Signs:
Vital Signs
Temp Pulse Resp BP Pulse Ox
98.3 F 93 20 114/68 94
11/15/23 07:11 11/15/23 07:11 11/15/23 07:11 11/15/23 07:11 11/15/23 07:11
I&O
11/14/23 11/15/23 11/16/23
06:59 06:59 06:59
Intake Total 700 / 700 1140 / 1140
Balance 700 / 700 1140 / 1140
Review of Systems
-
History Source: Patient
Constitutional: Reports Fever
Physical Exam
-
General: No Apparent Distress
HEENT: Normocephalic, Atraumatic and Moist Mucous Membranes
Respiratory: Clear to Auscultation
Cardiac: Regular Rhythm and S1/S2; Negative Murmur
GI: Soft, Nontender and Nondistended
Skin: Warm
Neuro: Awake, Alert, Oriented and AO x 3
Psych: Calm
[2023-11-15 12:10] LABS: Phosphorus 4.8 mg/dl (2.5-4.5)
--- NOTE | 2023-11-15 12:27 | CM ---
Received call from the patient's daughter inquiring about Medicaid. Previous CM had left VM for our [facility] department yesterday. CM provided contact information to the daughter to reach out tomorrow when the office is open.
[2023-11-15] MEDS: ZOFRAN 4 MG IV (12:37)
[2023-11-15] MEDS: SENOKOT-S 1 TABLET PO (12:37)
[2023-11-15 15:46] VITALS: BP 112/66
[2023-11-15] MEDS: ZEBETA PO (16:27)
[2023-11-15] MEDS: VISBIOME PO (16:27)
[2023-11-15] MEDS: LOVENOX 40 MG SC (16:30)
[2023-11-15 23:33] VITALS: BP 120/64
[2023-11-16] MEDS: ANCEF 10 IV ×3 (05:57→22:07)
[2023-11-16] MEDS: ROXICODONE 10 MG PO ×4 (05:57→22:07)
--- NOTE | 2023-11-16 06:44 | W.PN.UPDATE ---
Update Note
Progress Note Update
Patient seen and examined. Patient afebrile overnight. RLE: Portals clean, dry and intact. No erythema. No effusion. Swelling noted and patient continues to hold knee in flexed position. Calf soft. No ankle swelling. Blood cultures pending
this morning. Continue IV antibiotics per ID recommendations, currently cefazolin. Continue with pain medications as needed. May apply ice to the knee for discomfort. Encourage patient to perform range of motion of the knee. PT/OT as able. Will
continue to follow
[2023-11-16 07:55] VITALS: BP 117/66
[2023-11-16] MEDS: ZEBETA 5 MG PO (08:08)
[2023-11-16] MEDS: VISBIOME 2 CAP PO (08:08)
[2023-11-16 08:19] LABS: ALT (SGPT) 16 U/L (0-35); AST (SGOT) 19 U/L (14-36); Albumin 3.2 g/dl (3.5-5.0); Alkaline Phosphatase 117 U/L (38-126); Direct Bilirubin 0.3 mg/dl (0.0-0.4); Total Bilirubin 0.4 mg/dl (0.2-1.3); Total Protein 6.3 g/dl (6.3-8.2)
[2023-11-16] MEDS: SENOKOT-S 1 TABLET PO (09:12)
--- NOTE | 2023-11-16 11:02 | W.PN.HOSP.TC ---
Today's Communication/Plan
-
cont Abx
CM cont to work on MA
Assessment / Plan
Assessment / Plan
63[place] with PMHx of advanced b/l knee OA had hyaluronic injection into her knees in September 2023 and after the injection into R knee - developed worsening swelling and pain. [place] was [place] to the hospital.
Found MSSA septic arthritis. Discharge complicated by the need in 6 weeks of IV Abx and patient just recently in [place] without medical [place]. 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
A/P:
#R knee septic arthritis related to recent hyaluronic injection
Joint aspiration with MSSA
ID follows, cont Ancef IV for 6 weeks. Non-documented - CM for outpatient options
PT/OT and emphasize need to improve ROM
Pain mgmt
MRI knee - could not tolerate positioning, cancelled since patient is improving
#essential HTN
#Obesity with BMI 33
cont home meds
Advise to decrease calorie intake
#Mild Alk.phos elevation
With no clinical signs of abd pain
will follow clinically
Imaging if worsening
DVT ppx lovenox
Full code
I have spent at least 37min reviewing chart, test results, communication with consultants and direct patient care
Anticipated Discharge: > 48 hours
Subjective/Interval History
-
Date of Service: November 16, 2023
Objective Data
-
Labs:
Laboratory Results
11/16/23
06:50
Total Bilirubin 0.4
AST 19
ALT 16
Alkaline Phosphatase 117
Vital Signs:
Vital Signs
Temp Pulse Resp BP Pulse Ox
98 F 94 18 117/66 96
11/16/23 07:55 11/16/23 08:08 11/16/23 07:55 11/16/23 08:08 09/03/24 10:14
I&O
11/15/23 11/16/23 11/17/23
06:59 06:59 06:59
Intake Total 1140 / 1140 420 / 420
Balance 1140 / 1140 420 / 420
Review of Systems
-
History Source: Patient
All other systems: Reviewed and negative
Musculoskeletal: Reports Joint Pain (R knee )
Physical Exam
-
General: No Apparent Distress
HEENT: Normocephalic and Atraumatic
Cardiac: Regular Rhythm
GI: Soft, Nontender and Nondistended
Musculoskeletal: Other (R joint not red)
Neuro: Awake, Alert, Oriented and AO x 3
[2023-11-16] MEDS: MAALOX 30 ML PO (11:20)
[2023-11-16 12:35] VITALS: BP 120/57; PULSE 93; O2SAT 94
--- NOTE | 2023-11-16 14:07 | W.PN.ID1 ---
Date of Service
Date of Service: November 16, 2023
Today's Communication
Continue cefazolin.
Assessment / Plan
# [place] right knee MSSA septic arthritis s/p washout 11/12/23. OR cx GPC
- Continue cefazolin 2g IV q8h x 6 weeks through 01/24/24.
- Pt without insurance, Green Card, etc. and therefore may not afford self-pay outpatient IV abx.
- Appreciate casey saw operator's efforts.
# Post-op fever - improving
-Blood cx's neg to date.
Chief Complaint
-: Other (septic knee)
Vital Signs / Physical Exam
Vital Signs
Vital Signs
Temp Pulse Resp BP Pulse Ox
98 F 94 18 117/66 96
11/16/23 07:55 11/16/23 08:08 11/16/23 07:55 11/16/23 08:08 11/16/23 10:14
Selected Entries
11/15/23
15:46
Temp 100.7 F H
Physical Exam
Constitutional: No Acute Distress
Cardiovascular: Regular Rate and S1/S2
Pulmonary: Clear
Gastrointestinal: Soft, Non Tender and Non Distended
Objective Data
Lab Data
Lab Results
11/15/23 07:08
11/15/23 07:08
ESR 96 mm/hour (0-20) H 11/12/23 10:49
Estimated Creat Clear 72 ml/min 11/15/23 07:08
Total Bilirubin 0.4 mg/dl (0.2-1.3) 11/16/23 06:50
AST 19 U/L (14-36) 11/16/23 06:50
ALT 16 U/L (0-35) 11/16/23 06:50
Alkaline Phosphatase 117 U/L (38-126) 11/16/23 06:50
C-Reactive Protein 158.60 mg/L (0.0-10.00) H 11/12/23 10:49
Most recent labs reviewed.
Micro Results:
11/15/23 12:13 Blood Culture - Preliminary
Blood/Venous No Growth in 24 hours- Final report to follow
11/15/23 11:46 Blood Culture - Preliminary
Blood/Venous No Growth in 24 hours- Final report to follow
11/12/23 15:51 Anaerobic Culture - Final
Knee - Right NO ANAEROBES ISOLATED
11/12/23 15:51 Wound Culture - Final
Knee - Right S aureus-Methicillin Sensitive
Gram Stain - Final
[2023-11-16 15:34] VITALS: BP 135/61
[2023-11-16] MEDS: LOVENOX 40 MG SC (17:36)
[2023-11-16] MEDS: COLACE 100 MG PO (22:07)
[2023-11-16] MEDS: ZOFRAN 4 MG IV (22:30)
[2023-11-16 23:17] VITALS: BP 94/61
[2023-11-17] MEDS: ANCEF 10 IV ×3 (05:56→21:14)
[2023-11-17 07:35] VITALS: BP 158/94
--- NOTE | 2023-11-17 07:55 | W.PN.UPDATE ---
Update Note
Progress Note Update
Patient seen and examined. Patient afebrile overnight. She does endorse improvement in her symptoms since yesterday.
RLE: Portals clean, dry and intact. No erythema. No effusion. Swelling noted and patient continues to hold knee in flexed position. Patient endorses pain with attempted ROM. Calf soft. No ankle swelling.
Blood cultures without growth after 24 hours. . Continue IV antibiotics per ID recommendations, currently cefazolin. Continue with pain medications as needed. May apply ice to the knee for discomfort. Encourage patient to perform range of motion of
the knee. PT/OT as able. Will continue to follow.
[2023-11-17] MEDS: COLACE 100 MG PO ×2 (08:52→21:08)
[2023-11-17] MEDS: VISBIOME 2 CAP PO (08:52)
[2023-11-17] MEDS: ZEBETA 5 MG PO (08:52)
[2023-11-17] MEDS: ROXICODONE 10 MG PO ×3 (08:53→21:08)
--- NOTE | 2023-11-17 11:13 | W.PN.HOSP.TC ---
Today's Communication/Plan
-
Had BM today - cont laxatives
cont Abx
pending MA
Assessment / Plan
Assessment / Plan
63[place] speaking with PMHx of advanced b/l knee OA had hyaluronic injection into her knees in September 2023 and after the injection into R knee - developed worsening swelling and pain. [place] was [place] to the hospital.
Found MSSA septic arthritis. Discharge complicated by the need in 6 weeks of IV Abx and patient just recently in [place] medical [place]. 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
A/P:
#R knee septic arthritis related to recent hyaluronic injection
Joint aspiration with MSSA
ID follows, cont Ancef IV for 6 weeks. Non-documented - CM for outpatient options
PT/OT and emphasize need to improve ROM
Pain mgmt
MRI knee - could not tolerate positioning, cancelled since patient is improving
#essential HTN
#Obesity with BMI 33
cont home meds
Advise to decrease calorie intake
#Mild Alk.phos elevation
With no clinical signs of abd pain
will follow clinically
Imaging if worsening
DVT ppx lovenox
Full code
I have spent at least 37min reviewing chart, test results, communication with consultants and direct patient care
Anticipated Discharge: > 48 hours
Subjective/Interval History
-
Date of Service: November 17, 2023
Objective Data
-
Vital Signs:
Vital Signs
Temp Pulse Resp BP Pulse Ox
98.1 F 87 18 158/94 96
11/17/23 07:35 11/17/23 07:35 11/17/23 07:35 11/17/23 07:35 11/17/23 09:15
I&O
11/16/23 11/17/23 11/18/23
06:59 06:59 06:59
Intake Total 420 / 420 720 / 720
Balance 420 / 420 720 / 720
Review of Systems
-
All other systems: Reviewed and negative
Constitutional: Reports No Symptoms
Physical Exam
-
General: Well Developed and Well Nourished
Respiratory: Clear to Auscultation
Cardiac: Regular Rhythm
GI: Soft, Nontender and Nondistended
Musculoskeletal: No Clubbing, No Cyanosis and No Edema
Neuro: Awake, Alert, Oriented and AO x 3
Psych: Calm
--- NOTE | 2023-11-17 13:07 | W.PN.ID1 ---
Addendum entered and electronically signed by Lalita Up MD 11/18/23 15:46:
Correction: cefazolin 2g IV q8h x 6 weeks through 12/24/23 (not 01/24/24).
Original Note:
Date of Service
Date of Service: November 17, 2023
Today's Communication
Consider trial of high dose cephalexin 1000mg po q6hr x 8 weeks. With GoodRx coupon, one month supply cost of cephalexin can be as low as $25.00
Assessment / Plan
# [place] right knee MSSA septic arthritis s/p washout 11/12/23. OR cx MSSA
-Management complicated by lack of insurance.
- Optimal regimen is cefazolin 2g IV q8h x 6 weeks through 01/24/24.
- Can consider trial of high dose cephalexin 1000mg po q6hr x 8 weeks. With GoodRx coupon, one month supply cost of cephalexin can be as low as $25.00
Son-in-law will discuss with his .
# Post-op fever - resolved
-Blood cx's neg to date.
Chief Complaint
-: Other (septic knee)
Subjective / Review of Systems
Son-in-law at bedside. Pt knee pain better.
Vital Signs / Physical Exam
Vital Signs
Vital Signs
Temp Pulse Resp BP Pulse Ox
98.1 F 87 18 158/94 96
11/17/23 07:35 11/17/23 07:35 11/17/23 07:35 11/17/23 07:35 11/17/23 09:15
Physical Exam
Constitutional: No Acute Distress and Comfortable
Cardiovascular: Regular Rate and S1/S2
Pulmonary: Clear
Gastrointestinal: Soft, Non Tender and Non Distended
Neurological: AO x 3
Objective Data
Lab Data
Lab Results
11/15/23 07:08
11/15/23 07:08
ESR 96 mm/hour (0-20) H 11/12/23 10:49
Estimated Creat Clear 72 ml/min 11/15/23 07:08
Total Bilirubin 0.4 mg/dl (0.2-1.3) 11/16/23 06:50
AST 19 U/L (14-36) 11/16/23 06:50
ALT 16 U/L (0-35) 11/16/23 06:50
Alkaline Phosphatase 117 U/L (38-126) 11/16/23 06:50
C-Reactive Protein 158.60 mg/L (0.0-10.00) H 11/12/23 10:49
Most recent labs reviewed.
Micro Results:
11/15/23 12:13 Blood Culture - Preliminary
Blood/Venous No Growth in 48 hours- Final report to follow
11/15/23 11:46 Blood Culture - Preliminary
Blood/Venous No Growth in 48 hours- Final report to follow
11/12/23 15:51 Anaerobic Culture - Final
Knee - Right NO ANAEROBES ISOLATED
11/12/23 15:51 Wound Culture - Final
Knee - Right S aureus-Methicillin Sensitive
Gram Stain - Final
[2023-11-17 15:15] VITALS: BP 127/63
[2023-11-17] MEDS: LOVENOX 40 MG SC (17:33)
[2023-11-17] MEDS: ROXICODONE 2.5 MG PO ×2 (17:33→23:48)
[2023-11-17 23:38] VITALS: BP 117/56
[2023-11-17] MEDS: TYLENOL 650 MG PO (23:43)
[2023-11-18] MEDS: ANCEF 10 IV ×3 (05:18→21:14)
--- NOTE | 2023-11-18 06:50 | W.PN.ORTHO ---
Today's Communication / Plan
-
Weight-bear as tolerated with walker
PT/OT
Cefazolin for 8 weeks per ID
Aspirin for DVT prophylaxis
Reiterated importance of getting her knee moving the patient
Follow-up 1 week postop for suture removal
Assessment
.
Distal Motor Intact: Yes
Dressing:
Clean, dry and intact.
Plan
.
[facility] / [facility] [place]
DVT Prophylaxis: Aspirin
Activity:
Out of bed.
PT/OT
Discharge Plan: Home
Subjective
.
.:
Patient resting comfortably.
Vital Signs and Labs
.
Vital Signs and Labs:
Lab Results
11/15/23 07:08
11/15/23 07:08
Temp Pulse Resp BP Pulse Ox
98.1 F 96 18 117/56 98
11/18/23 03:05 11/17/23 23:38 11/17/23 23:38 11/17/23 23:38 11/18/23 00:50
MSSA
Physical Exam
-
Right knee sutures in place. No warmth or erythema noted. Small effusion present. Generalized pain throughout her knee and that she is very guarded/anxious. Range of motion 0-35 degrees with minimal discomfort. Calf is soft and nontender.
Distal neurovascular was intact.
--- NOTE | 2023-11-18 07:20 | CM ---
patient with septic arthritis right knee on iv ancef.id suggested trialing high dose of cefalexin.cost with good rx coupon could be as low as $25/month.son in law to speak with his .patient with no insurance.medicaid pending..Plan needs 6 weeks
of iv abx.
[2023-11-18 08:46] VITALS: BP 112/62
[2023-11-18] MEDS: VISBIOME 2 CAP PO (09:07)
[2023-11-18] MEDS: COLACE 100 MG PO ×2 (09:07→21:13)
[2023-11-18] MEDS: ZEBETA 5 MG PO (09:07)
[2023-11-18] MEDS: ROXICODONE 10 MG PO ×3 (09:12→21:14)
--- NOTE | 2023-11-18 12:05 | W.PN.HOSP.TC ---
Today's Communication/Plan
-
cont IV abx
CM for MA
Assessment / Plan
Assessment / Plan
63yo F from [place], [place] speaking with PMHx of advanced b/l knee OA had hyaluronic injection into her knees in September 2023 and after the injection into R knee - developed worsening swelling and pain. [place] to the hospital.
Found MSSA septic arthritis. Discharge complicated by the need in 6 weeks of IV Abx and [place] just recently in [place] medical insurance. 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
A/P:
#R knee septic arthritis related to recent hyaluronic injection
Joint aspiration with MSSA
ID follows, cont Ancef IV for 8 weeks. Offered possible oral Abx if patient wants to self-monitor at home however patient does not want to accept that option. Non-documented - CM for outpatient options
PT/OT and emphasize need to improve ROM
Pain mgmt
MRI knee - could not tolerate positioning, cancelled since patient is improving
#essential HTN
#Obesity with BMI 33
cont home meds
Advise to decrease calorie intake
#Mild Alk.phos elevation
With no clinical signs of abd pain
will follow clinically
Imaging if worsening
DVT ppx lovenox
Full code
I have spent at least 37min reviewing chart, test results, communication with consultants and direct patient care
Anticipated Discharge: > 48 hours
Subjective/Interval History
-
Date of Service: November 18, 2023
Objective Data
-
Vital Signs:
Vital Signs
Temp Pulse Resp BP Pulse Ox
99.5 F 90 18 112/62 95
11/18/23 08:46 11/18/23 09:07 11/18/23 08:46 11/18/23 09:07 11/18/23 08:46
I&O
11/17/23 11/18/23 11/19/23
06:59 06:59 06:59
Intake Total 720 / 720 768 / 768
Balance 720 / 720 768 / 768
Review of Systems
-
History Source: Patient
All other systems: Reviewed and negative
Physical Exam
-
General: No Apparent Distress
HEENT: Normocephalic
Respiratory: Clear to Auscultation
Cardiac: Regular Rhythm
Skin: Warm
Neuro: Awake, Alert, Oriented and AO x 3
--- NOTE | 2023-11-18 15:12 | W.PN.ID1 ---
Date of Service
Date of Service: November 18, 2023
Today's Communication
Continue cefazolin.
Assessment / Plan
# [place] right knee MSSA septic arthritis s/p washout 11/12/23. OR cx MSSA
-Management complicated by lack of insurance.
- Optimal regimen is cefazolin 2g IV q8h x 6 weeks through 12/24/23.
- Offered trial of high dose cephalexin 1000mg po q6hr x 8 weeks. With [facility] coupon, one month supply cost of cephalexin can be as low as $25.00
Pt and family prefer IV abx, as per hospitalist.
- Awaiting for Medical Assistance approval.
# Post-op fever - resolved
-Blood cx's neg to date.
Chief Complaint
-: Other (septic knee)
Subjective / Review of Systems
No complaints.
Vital Signs / Physical Exam
Vital Signs
Vital Signs
Temp Pulse Resp BP Pulse Ox
99.5 F 90 18 112/62 98
11/18/23 08:46 11/18/23 09:07 11/18/23 08:46 11/18/23 09:07 11/18/23 12:46
Physical Exam
Constitutional: No Acute Distress and Comfortable
Musculoskeletal: Other (Right knee - no erythema, mild induration)
Objective Data
Lab Data
Lab Results
11/15/23 07:08
11/15/23 07:08
ESR 96 mm/hour (0-20) H 11/12/23 10:49
Estimated Creat Clear 72 ml/min 11/15/23 07:08
Total Bilirubin 0.4 mg/dl (0.2-1.3) 11/16/23 06:50
AST 19 U/L (14-36) 11/16/23 06:50
ALT 16 U/L (0-35) 11/16/23 06:50
Alkaline Phosphatase 117 U/L (38-126) 11/16/23 06:50
C-Reactive Protein 158.60 mg/L (0.0-10.00) H 11/12/23 10:49
Most recent labs reviewed.
Micro Results:
11/15/23 12:13 Blood Culture - Preliminary
Blood/Venous No Growth in 72 hours- Final report to follow
11/15/23 11:46 Blood Culture - Preliminary
Blood/Venous No Growth in 72 hours- Final report to follow
11/12/23 15:51 Anaerobic Culture - Final
Knee - Right NO ANAEROBES ISOLATED
11/12/23 15:51 Wound Culture - Final
Knee - Right S aureus-Methicillin Sensitive
Gram Stain - Final
[2023-11-18 15:20] VITALS: BP 97/66; PULSE 83; O2SAT 97
[2023-11-18 16:14] VITALS: BP 99/67
[2023-11-18 16:36] VITALS: BMI 31.5
[2023-11-18] MEDS: LOVENOX 40 MG SC (17:05)
[2023-11-18 23:55] VITALS: BP 107/55
[2023-11-19] MEDS: ROXICODONE 10 MG PO ×5 (02:01→20:26)
[2023-11-19 02:19] VITALS: BP 112/62
[2023-11-19] MEDS: ANCEF 10 IV ×3 (05:58→21:48)
--- NOTE | 2023-11-19 06:24 | PTCARENOTE ---
Pt aaox3 able to make her needs known.Pt encouraged to get oob with assist multiple times, pt still refusing to get up,prefers to use the bedpan. PRN pain meds given as needed.Call taveras in reach.
[2023-11-19 07:36] LABS: % Basophils 0.2 % (0-2); % Eosinophils 1.7 % (0-6); % Immature Granulocytes 0.5 % (0-0.5); % Lymphocytes 24.4 % (20.5-51.1); % Monocytes 6.5 % (1.7-9.3); % Neutrophils 66.7 % (42.2-75.2); Absolute Eosinophils 0.1 10^3/uL (0-0.7); Absolute Monocytes 0.5 10^3/uL (0.1-0.6); Absolute Neutrophils 5.4 10^3/uL (1.4-6.5); Hemoglobin 11.2 g/dL (12.0-16.0); Mean Corp Hgb Conc. 32.9 g/dL (33.0-37.0); Mean Corpuscular Hgb 28.4 pg (27.0-31.0); Mean Corpuscular Volume 86.1 fL (81.0-99.0); Nucleated Red Blood Cells % 0 %; Platelet Count 362 10^3/uL (130-400); Red Blood Cell Count 3.95 10^6/uL (4.20-5.40); Red Cell Dist. Width 12.7 % (11.5-14.5)
[2023-11-19] MEDS: ZEBETA 5 MG PO (07:49)
[2023-11-19] MEDS: VISBIOME 2 CAP PO (07:49)
[2023-11-19] MEDS: COLACE 100 MG PO ×2 (07:49→20:16)
[2023-11-19 07:55] VITALS: BP 125/56
--- NOTE | 2023-11-19 08:09 | W.PN.ORTHO ---
Today's Communication / Plan
-
Weight-bear as tolerated with walker
PT/OT- focus on ROM
ABX per ID
Aspirin for DVT prophylaxis x4 weeks
Follow-up 1 week postop for suture removal; if still admitted can consider removing after 1 week from DOS
Assessment
.
Distal Motor Intact: Yes
Plan
.
Surgery / Date: R knee I & D 11/11 PRIYANKA [place]
Activity:
Out of bed.
PT/OT
Subjective
.
.:
Patient resting comfortably. Apprehensive on exam
Vital Signs and Labs
.
Vital Signs and Labs:
Lab Results
11/19/23 07:15
Temp Pulse Resp BP Pulse Ox
98.4 F 81 18 125/56 94
11/18/23 23:55 11/19/23 07:49 11/18/23 23:55 11/19/23 07:49 11/18/23 23:55
Physical Exam
-
No erythema- guarded on exam. Motion 10-30 degrees willing to do
[2023-11-19 08:24] LABS: ALT (SGPT) < 10 U/L (0-35); AST (SGOT) 17 U/L (14-36); Alkaline Phosphatase 90 U/L (38-126); Carbon Dioxide 30 mmol/L (22-30); Chloride 95 mmol/L (98-107); Estimated Creatinine Clearance 85 ml/min; Glucose 115 mg/dl (70-99); Potassium 4.7 mmol/L (3.5-5.1); Sodium 135 mmol/L (135-145); eGFR > 60.00
[2023-11-19 08:37] LABS: Albumin 3.3 g/dl (3.5-5.0); Blood Urea Nitrogen 14 mg/dl (7-17); Calcium 9.4 mg/dl (8.4-10.2); Total Bilirubin 0.3 mg/dl (0.2-1.3); Total Protein 6.5 g/dl (6.3-8.2)
--- NOTE | 2023-11-19 11:56 | W.PN.HOSP.TC ---
Addendum entered and electronically signed by Renan Prescott MD 11/19/23 14:31:
#New onset DM
HgbA1c 6.9%
Insulin SS, accuchekc and DM diet
Oral hypoglycemics upon D/C
Original Note:
Today's Communication/Plan
-
cont Abx, PT, pending MA
Assessment / Plan
Assessment / Plan
63yo F from [facility], Thai speaking with PMHx of advanced b/l knee OA had hyaluronic injection into her knees in September 2023 and after the injection into R knee - developed worsening swelling and pain. [place] to the hospital.
Found MSSA septic arthritis. Discharge complicated by the need in 6 weeks of IV Abx and [place] recently [place] medical [place]. 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
A/P:
#R knee septic arthritis related to recent hyaluronic injection
Joint aspiration with MSSA
ID follows, cont Ancef IV for 8 weeks. Offered possible oral Abx if patient wants to self-monitor at home however patient does not want to accept that option,since it is not optimal treatment.
PT/OT and emphasize need to improve ROM
Pain mgmt
MRI knee - could not tolerate positioning, cancelled since patient is improving
#essential HTN
#Obesity with BMI 33
cont home meds
Advise to decrease calorie intake
#Mild Alk.phos elevation
With no clinical signs of abd pain
will follow clinically
Imaging if worsening
DVT ppx lovenox
Full code
I have spent at least 37min reviewing chart, test results, communication with consultants and direct patient care
Anticipated Discharge: > 48 hours
Subjective/Interval History
-
Date of Service: November 19, 2023
Objective Data
-
Labs:
Laboratory Results
11/19/23
07:15
WBC 8.0
Hgb 11.2 L
Hct 34.0 L
Plt Count 362
Sodium 135
Potassium 4.7
Chloride 95 L
Carbon Dioxide 30
BUN 14
Creatinine 0.6
Glucose 115 H
Calcium 9.4
Total Bilirubin 0.3
AST 17
ALT < 10
Alkaline Phosphatase 90
Vital Signs:
Vital Signs
Temp Pulse Resp BP Pulse Ox
98 F 81 16 125/56 95
11/19/23 07:55 11/19/23 07:55 11/19/23 07:55 11/19/23 07:55 11/19/23 07:55
I&O
11/18/23 11/19/23 11/20/23
06:59 06:59 06:59
Intake Total 768 / 768 1380 / 1380
Balance 768 / 768 1380 / 1380
Review of Systems
-
History Source: Patient
All other systems: Reviewed and negative
Physical Exam
-
General: Well Developed and No Apparent Distress
HEENT: Normocephalic
Cardiac: Regular Rhythm
GI: Soft
Musculoskeletal: No Clubbing, No Cyanosis, No Edema and Other (no R knee swelling or redness)
Skin: Warm
Neuro: Awake, Alert, Oriented and AO x 3
Psych: Calm
[2023-11-19 14:21] LABS: Glycohemoglobin (HgbA1c) 6.9 % (4.0-5.6)
[2023-11-19 15:30] VITALS: BP 118/63
[2023-11-19 16:40] LABS: Glucose - Point of Care 114 mg/dl (70-99)
--- NOTE | 2023-11-19 16:40 | CM ---
Janine will return home at discharge. ID notes probable plan for oral abx due to high cost for IV abx for this uninsured non-resident. Family aware of Good [facility] cost of about $25/month for the oral abx.
CM continues to follow.
[2023-11-19] MEDS: LOVENOX SC (17:04)
[2023-11-19 23:00] VITALS: BP 107/67
[2023-11-20 01:24] LABS: Glucose - Point of Care 136 mg/dl (70-99)
[2023-11-20] MEDS: ANCEF 10 IV ×3 (05:11→22:01)
[2023-11-20] MEDS: ROXICODONE 10 MG PO ×4 (05:37→18:22)
[2023-11-20 08:15] VITALS: BP 145/80
[2023-11-20] MEDS: COLACE 100 MG PO ×2 (08:52→20:15)
[2023-11-20] MEDS: VISBIOME 2 CAP PO (08:52)
[2023-11-20] MEDS: ZEBETA 5 MG PO (08:52)
[2023-11-20 08:54] LABS: Glucose - Point of Care 114 mg/dl (70-99)
--- NOTE | 2023-11-20 09:38 | W.PN.ORTHO ---
Today's Communication / Plan
-
Through [employer] didactic program in dietetics director via her nurse relayed that sutures can be removed 7 to 10 days postop. She was also encouraged to get her knee moving. Ice, [id number] anti-inflammatories and Tylenol as needed. Antibiotics per ID recommendation.
Appreciate medical team efforts. Orthopedics to sign off for now.
Assessment
.
Distal Motor Intact: Yes
Dressing:
Clean, dry and intact.
Plan
.
Surgery / Date: R knee I & D 11/11 MSSA Leonardo
Activity:
Out of bed.
PT/OT
Discharge Plan: Home
Subjective
.
.:
Patient resting comfortably.
Vital Signs and Labs
.
Vital Signs and Labs:
Lab Results
11/19/23 07:15
11/19/23 07:15
Temp Pulse Resp BP Pulse Ox
97.7 F 68 18 145/80 97
11/20/23 08:15 11/20/23 08:15 11/20/23 08:15 11/20/23 08:15 11/20/23 08:15
+MSSA
Physical Exam
-
Right knee sutures in place. Incisions are clean, dry and intact. No warmth or erythema around the knee. Patient is extremely guarded. Passive motion 5 to 30 degrees with minimal discomfort. No calf discomfort. Distal neurovascular was intact.
--- NOTE | 2023-11-20 09:48 | W.PN.HOSP.TC ---
Today's Communication/Plan
-
cont Abx
pendign MA
Assessment / Plan
Assessment / Plan
63yo F from [place], [place] speaking with PMHx of advanced b/l knee OA had hyaluronic injection into her knees in September 2023 and after the injection into R knee - developed worsening swelling and pain. [place] to [place] hospital.
Found MSSA septic arthritis. Discharge complicated by the need in 6 weeks of IV Abx and [place] recently [place] medical [place]. 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
A/P:
#R knee septic arthritis related to recent hyaluronic injection
Joint aspiration with MSSA
ID follows, cont Ancef IV for 8 weeks. Offered possible oral Abx if patient wants to self-monitor at home however patient does not want to accept that option,since it is not optimal treatment.
PT/OT and emphasize need to improve ROM
Pain mgmt
MRI knee - could not tolerate positioning, cancelled since patient is improving
#new onset DM
Accuchecks, Insulin SS, DM diet
Counseled on yearly dilated eye exam, renal disease check and podiatry - first appointments recommended to be scheduled PATRICK. Patient verbalized understanding
#essential HTN
#Obesity with BMI 33
cont home meds
Advise to decrease calorie intake
#Mild Alk.phos elevation
resolved
With no clinical signs of abd pain
DVT ppx lovenox
Full code
I have spent at least 37min reviewing chart, test results, communication with consultants and direct patient care
Anticipated Discharge: > 48 hours
Subjective/Interval History
-
Date of Service: November 20, 2023
Objective Data
-
Vital Signs:
Vital Signs
Temp Pulse Resp BP Pulse Ox
97.7 F 68 18 145/80 97
11/20/23 08:15 11/20/23 08:15 11/20/23 08:15 11/20/23 08:15 11/20/23 08:15
I&O
11/19/23 11/20/23 11/21/23
06:59 06:59 06:59
Intake Total 1380 / 1380 780 / 780
Balance 1380 / 1380 780 / 780
Review of Systems
-
History Source: Patient
All other systems: Reviewed and negative
Physical Exam
-
General: No Apparent Distress
HEENT: Normocephalic
Respiratory: Clear to Auscultation
Cardiac: Regular Rhythm
[2023-11-20 10:54] LABS: TSH Reflex To Free T4 < 0.02 uIU/ml (0.47-4.68)
[2023-11-20 11:23] LABS: Free T4 3.29 ng/dl (0.78-2.19)
--- NOTE | 2023-11-20 12:12 | W.PN.UPDATE ---
Update Note
Progress Note Update
As per communication with endo - Methimazole 10mg BID and outpatient follow up
[2023-11-20 12:40] LABS: Glucose - Point of Care 112 mg/dl (70-99)
[2023-11-20 15:00] VITALS: BP 113/53
[2023-11-20 16:47] LABS: Glucose - Point of Care 118 mg/dl (70-99)
[2023-11-20] MEDS: LOVENOX SC (17:08)
[2023-11-20] MEDS: TAPAZOLE 10 MG PO (20:15)
[2023-11-20 21:07] LABS: Glucose - Point of Care 166 mg/dl (70-99)
[2023-11-20 23:50] VITALS: BP 108/60
[2023-11-21] MEDS: ANCEF 10 IV ×3 (05:18→22:13)
[2023-11-21 07:55] VITALS: BP 115/58
[2023-11-21 08:19] LABS: Glucose - Point of Care 114 mg/dl (70-99)
[2023-11-21] MEDS: TAPAZOLE 10 MG PO ×2 (08:29→19:32)
[2023-11-21] MEDS: ROXICODONE 10 MG PO ×4 (08:29→22:18)
[2023-11-21] MEDS: ZEBETA 5 MG PO (08:29)
[2023-11-21] MEDS: COLACE 100 MG PO ×2 (08:29→19:32)
[2023-11-21] MEDS: VISBIOME 2 CAP PO (08:29)
--- NOTE | 2023-11-21 11:19 | W.PN.HOSP.TC ---
Today's Communication/Plan
-
cont Abx pending insurance and outpatient infusion arrangement for 8 weeks total
cont methimazole
Assessment / Plan
Assessment / Plan
63yo F from [facility], [place] speaking with PMHx of advanced b/l knee OA had hyaluronic injection into her knees in September 2023 and after the injection into R knee - developed worsening swelling and pain. [place] to the hospital.
Found MSSA septic arthritis. Discharge complicated by the need in 6 weeks of IV Abx and [place] recently in [place] medical [place]. 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
A/P:
#R knee septic arthritis related to recent hyaluronic injection
Joint aspiration with MSSA
ID follows, cont Ancef IV for 8 weeks. Offered possible oral Abx if patient wants to self-monitor at home however patient does not want to accept that option,since it is not optimal treatment.
PT/OT and emphasize need to improve ROM
Pain mgmt
MRI knee - could not tolerate positioning, cancelled since patient is improving
#new onset DM
Accuchecks, Insulin SS, DM diet
Counseled on yearly dilated eye exam, renal disease check and podiatry - first appointments recommended to be scheduled PATRICK. Patient verbalized understanding
Check lipids
#Hyperthyroidism
Outpatient Endocrinology
Started methimazole as per discussion with Endo
#essential HTN
#Obesity with BMI 33
cont home meds
Advise to decrease calorie intake
#Mild Alk.phos elevation
resolved
With no clinical signs of abd pain
DVT ppx lovenox
Full code
I have spent at least 57min reviewing chart, test results, communication with consultants and direct patient care
Anticipated Discharge: > 48 hours
Subjective/Interval History
-
Date of Service: November 21, 2023
Objective Data
-
Vital Signs:
Vital Signs
Temp Pulse Resp BP Pulse Ox
98.1 F 78 18 115/58 97
11/21/23 07:55 11/21/23 07:55 11/21/23 07:55 11/21/23 07:55 11/21/23 07:55
I&O
11/20/23 11/21/23 11/22/23
06:59 06:59 06:59
Intake Total 780 / 780 480 / 480
Balance 780 / 780 480 / 480
Review of Systems
-
History Source: Patient
All other systems: Reviewed and negative
Musculoskeletal: Reports Other (pain in R knee)
Physical Exam
-
General: No Apparent Distress
HEENT: Normocephalic
Respiratory: Clear to Auscultation
Cardiac: Regular Rhythm
GI: Soft, Nontender and Nondistended
Musculoskeletal: No Clubbing, No Cyanosis and No Edema
Skin: Warm
Neuro: Awake, Alert, Oriented and AO x 3
--- NOTE | 2023-11-21 11:26 | CM ---
Patient seen at bedside, patient on bedpan. CM will return to confirm no needs at this time. CM will continue to follow for discharge planning needs.
Plan; home with no needs.
[2023-11-21 11:51] LABS: Glucose - Point of Care 139 mg/dl (70-99)
[2023-11-21 15:00] VITALS: BP 113/55
[2023-11-21 16:28] LABS: Glucose - Point of Care 101 mg/dl (70-99)
[2023-11-21] MEDS: LOVENOX 40 MG SC (17:02)
[2023-11-21] MEDS: DILAUDID 1 MG IV (19:37)
[2023-11-21 21:36] LABS: Glucose - Point of Care 116 mg/dl (70-99)
[2023-11-21 23:14] VITALS: BP 104/48
[2023-11-22] MEDS: ANCEF 10 IV ×3 (05:23→21:15)
[2023-11-22] MEDS: ROXICODONE 10 MG PO ×4 (05:30→21:14)
[2023-11-22 07:20] LABS: Glucose - Point of Care 112 mg/dl (70-99)
[2023-11-22 07:24] LABS: % Basophils 0.4 % (0-2); % Immature Granulocytes 0.4 % (0-0.5); % Lymphocytes 27.9 % (20.5-51.1); % Monocytes 6.5 % (1.7-9.3); % Neutrophils 62.8 % (42.2-75.2); Absolute Eosinophils 0.1 10^3/uL (0-0.7); Absolute Lymphocytes 1.9 10^3/uL (1.2-3.4); Absolute Monocytes 0.5 10^3/uL (0.1-0.6); Absolute Neutrophils 4.3 10^3/uL (1.4-6.5); Hematocrit 33.4 % (37.0-47.0); Hemoglobin 10.8 g/dL (12.0-16.0); Mean Corp Hgb Conc. 32.3 g/dL (33.0-37.0); Mean Corpuscular Hgb 28.1 pg (27.0-31.0); Mean Corpuscular Volume 86.8 fL (81.0-99.0); Nucleated Red Blood Cells % 0 %; Platelet Count 413 10^3/uL (130-400); Red Blood Cell Count 3.85 10^6/uL (4.20-5.40); Red Cell Dist. Width 12.8 % (11.5-14.5); White Blood Cell Count 6.9 10^3/uL (4.8-10.8)
[2023-11-22 07:35] VITALS: BP 114/70
[2023-11-22 08:29] LABS: ALT (SGPT) < 10 U/L (0-35); AST (SGOT) 17 U/L (14-36); Albumin 3.2 g/dl (3.5-5.0); Alkaline Phosphatase 81 U/L (38-126); Blood Urea Nitrogen 12 mg/dl (7-17); Calcium 9.2 mg/dl (8.4-10.2); Carbon Dioxide 28 mmol/L (22-30); Chloride 97 mmol/L (98-107); Estimated Creatinine Clearance 85 ml/min; Glucose 108 mg/dl (70-99); HDL Cholesterol 34 mg/dl; LDL Cholesterol, Calculated 166 mg/dl; Potassium 4.7 mmol/L (3.5-5.1); Sodium 138 mmol/L (135-145); Total Bilirubin 0.3 mg/dl (0.2-1.3); Total Cholesterol 223 mg/dl (50-199); Total Protein 6.5 g/dl (6.3-8.2); Triglyceride 118 mg/dl (10-149); Very Low Density Lipoprotein 23 mg/dl (0-30); eGFR > 60.00
[2023-11-22] MEDS: ZEBETA 5 MG PO (08:38)
[2023-11-22] MEDS: TAPAZOLE 10 MG PO ×2 (08:38→21:00)
[2023-11-22] MEDS: VISBIOME 2 CAP PO (08:38)
--- NOTE | 2023-11-22 10:36 | W.PN.ID1 ---
Date of Service
Date of Service: November 22, 2023
Today's Communication
Continue cefazolin.
Assessment / Plan
# [place] right knee MSSA septic arthritis s/p washout 11/12/23. OR cx MSSA
-Management complicated by lack of insurance.
- Optimal regimen is cefazolin 2g IV q8h x 6 weeks through 12/24/23.
- Follow weekly CBC, CMP, CRP
- Awaiting for Medical Assistance approval.
# Post-op fever - resolved
-Blood cx's neg to date.
Chief Complaint
-: Other (septic knee)
Subjective / Review of Systems
c/o nerve pain right knee.
Vital Signs / Physical Exam
Vital Signs
Vital Signs
Temp Pulse Resp BP Pulse Ox
97.3 F 79 18 114/70 98
11/22/23 07:35 11/22/23 07:35 11/22/23 07:35 11/22/23 07:35 11/22/23 07:35
Physical Exam
Constitutional: No Acute Distress
Musculoskeletal: Other (Right knee - no effusion/warmth)
Objective Data
Lab Data
Lab Results
11/22/23 06:27
11/22/23 06:27
ESR 96 mm/hour (0-20) H 11/12/23 10:49
Estimated Creat Clear 85 ml/min 11/22/23 06:27
Total Bilirubin 0.3 mg/dl (0.2-1.3) 11/22/23 06:27
AST 17 U/L (14-36) 11/22/23 06:27
ALT < 10 U/L (0-35) 11/22/23 06:27
Alkaline Phosphatase 81 U/L (38-126) 11/22/23 06:27
C-Reactive Protein 158.60 mg/L (0.0-10.00) H 11/12/23 10:49
Most recent labs reviewed.
Micro Results:
11/15/23 12:13 Blood Culture - Final
Blood/Venous No Growth - Final Report
11/15/23 11:46 Blood Culture - Final
Blood/Venous No Growth - Final Report
11/12/23 15:51 Anaerobic Culture - Final
Knee - Right NO ANAEROBES ISOLATED
11/12/23 15:51 Wound Culture - Final
Knee - Right S aureus-Methicillin Sensitive
Gram Stain - Final
[2023-11-22] MEDS: COLACE 100 MG PO ×2 (11:43→21:05)
[2023-11-22 11:52] LABS: Glucose - Point of Care 116 mg/dl (70-99)
--- NOTE | 2023-11-22 12:52 | W.PN.HOSP.TC ---
Today's Communication/Plan
-
Monitor vital signs see plan
Pain control
Continue antibiotics
Discharge planning
Assessment / Plan
Assessment / Plan
63yo F from [facility], [place] speaking with PMHx of advanced b/l knee OA had hyaluronic injection into her knees in September 2023 and after the injection into R knee - developed worsening swelling and pain. [place] to [place].
Found MSSA septic arthritis. Discharge complicated by the need in 6 weeks of IV Abx and patient [place] recently in [place] medical [place]. 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
A/P:
#R knee septic arthritis related to recent hyaluronic injection
Joint aspiration with MSSA
ID follows, cont Ancef IV for 8 weeks. Offered possible oral Abx if patient wants to self-monitor at home however patient does not want to accept that option,since it is not optimal treatment. cefazolin 2g IV q8h x 6 weeks through 12/24/23 per ID
PT/OT and emphasize need to improve ROM
Pain mgmt
MRI knee - could not tolerate positioning, cancelled since patient is improving
#new onset DM
Accuchecks, Insulin SS, DM diet
Counseled on yearly dilated eye exam, renal disease check and podiatry - first appointments recommended to be scheduled PATRICK. Patient verbalized understanding
#Hyperthyroidism
Outpatient Endocrinology
Started methimazole as per discussion with Endo
#essential HTN
#Obesity with BMI 33
cont home meds
Advise to decrease calorie intake
#Mild Alk.phos elevation
resolved
With no clinical signs of abd pain
DVT ppx lovenox
Full code
General: No Apparent Distress
HEENT: Normocephalic
Respiratory: Clear to Auscultation
Cardiac: Regular Rhythm
GI: Soft, Nontender and Nondistended
Musculoskeletal: No Clubbing, No Cyanosis and No Edema. Right knee stitches
Skin: Warm
Neuro: Awake, Alert, Oriented and AO x 3
Anticipated Discharge: Within 24 hours
Subjective/Interval History
-
Date of Service: November 22, 2023
has some pain
Objective Data
-
Labs:
Laboratory Results
11/22/23
06:27
WBC 6.9
Hgb 10.8 L
Hct 33.4 L
Plt Count 413 H
Sodium 138
Potassium 4.7
Chloride 97 L
Carbon Dioxide 28
BUN 12
Creatinine 0.6
Glucose 108 H
Calcium 9.2
Total Bilirubin 0.3
AST 17
ALT < 10
Alkaline Phosphatase 81
Vital Signs:
Vital Signs
Temp Pulse Resp BP Pulse Ox
97.3 F 79 18 114/70 98
11/22/23 07:35 11/22/23 07:35 11/22/23 07:35 11/22/23 07:35 11/22/23 08:40
I&O
11/21/23 11/22/23 11/23/23
06:59 06:59 06:59
Intake Total 480 / 480 960 / 960
Balance 480 / 480 960 / 960
[2023-11-22 14:00] VITALS: BP 118/53; PULSE 91; O2SAT 97
[2023-11-22 15:20] VITALS: BP 114/58
[2023-11-22 16:59] LABS: Glucose - Point of Care 97 mg/dl (70-99)
--- NOTE | 2023-11-22 17:12 | CM ---
CM submitted IV abx information to [facility] for self-pay pricing for Rx, as MD was advised by family that they prefer the IV abx rather than the high dose PO abx that were recommended for cost savings. Per daughter, they have completed an
application for MA in the community; need to determine if this will cover IV abx in the home.
CM to follow up with [facility] in am.
[2023-11-22] MEDS: LOVENOX 40 MG SC (17:27)
[2023-11-22 21:16] LABS: Glucose - Point of Care 101 mg/dl (70-99)
[2023-11-22 23:54] VITALS: BP 105/54
[2023-11-23] MEDS: ANCEF 10 IV ×3 (05:07→21:05)
[2023-11-23 07:10] VITALS: BP 140/69
[2023-11-23 07:21] LABS: Glucose - Point of Care 101 mg/dl (70-99)
[2023-11-23] MEDS: ROXICODONE 10 MG PO ×3 (07:32→16:56)
[2023-11-23 07:42] LABS: % Basophils 0.3 % (0-2); % Eosinophils 1.5 % (0-6); % Immature Granulocytes 0.3 % (0-0.5); % Lymphocytes 33.8 % (20.5-51.1); % Monocytes 6.9 % (1.7-9.3); % Neutrophils 57.2 % (42.2-75.2); Absolute Eosinophils 0.1 10^3/uL (0-0.7); Absolute Monocytes 0.4 10^3/uL (0.1-0.6); Absolute Neutrophils 3.4 10^3/uL (1.4-6.5); Hematocrit 33.8 % (37.0-47.0); Mean Corp Hgb Conc. 32.5 g/dL (33.0-37.0); Mean Corpuscular Hgb 28.4 pg (27.0-31.0); Mean Corpuscular Volume 87.3 fL (81.0-99.0); Mean Platelet Volume 8.9 fL (7.4-10.4); Nucleated Red Blood Cells % 0 %; Platelet Count 434 10^3/uL (130-400); Red Blood Cell Count 3.87 10^6/uL (4.20-5.40); Red Cell Dist. Width 12.8 % (11.5-14.5)
[2023-11-23] MEDS: VISBIOME 2 CAP PO (08:22)
[2023-11-23] MEDS: TAPAZOLE 10 MG PO ×2 (08:22→20:14)
[2023-11-23] MEDS: ZEBETA 5 MG PO (08:23)
[2023-11-23] MEDS: COLACE 100 MG PO ×2 (08:23→20:14)
[2023-11-23 08:24] LABS: Blood Urea Nitrogen 14 mg/dl (7-17); Calcium 9.5 mg/dl (8.4-10.2); Carbon Dioxide 30 mmol/L (22-30); Chloride 99 mmol/L (98-107); Estimated Creatinine Clearance 72 ml/min; Glucose 104 mg/dl (70-99); Potassium 4.8 mmol/L (3.5-5.1); Sodium 140 mmol/L (135-145); eGFR > 60.00
--- NOTE | 2023-11-23 10:51 | CM ---
CM spoke with Ashly at [facility] regarding home IV abx. Once community MA has been approved, Janine will be able to go home with [facility] for IV abx. Cost prior to MA approval is $225/week; medicaid certified home care agency will need to be
found for nursing at home.
CM will continue to follow to coordinate discharge to home with home care and IV abx once community MA approved.
[2023-11-23 11:43] LABS: Glucose - Point of Care 115 mg/dl (70-99)
--- NOTE | 2023-11-23 11:47 | W.PN.HOSP.TC ---
Today's Communication/Plan
-
Monitor vital signs
see plan
Awaiting insurance approval
Discharge planning
Continue antibiotics
PT/OT
daughter updated over the phone
cw methoimazole
Assessment / Plan
Assessment / Plan
63[place] speaking with PMHx of advanced b/l knee OA had hyaluronic injection into her knees in September 2023 and after the injection into R knee - developed worsening swelling and pain. [place] to [place] hospital.
Found MSSA septic arthritis. Discharge complicated by the need in 6 weeks of IV Abx and patient just recently in [place] medical [place]. 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
A/P:
#R knee septic arthritis related to recent hyaluronic injection
Joint aspiration with MSSA
ID follows, cont Ancef IV for 8 weeks. Offered possible oral Abx if patient wants to self-monitor at home however patient does not want to accept that option,since it is not optimal treatment. cefazolin 2g IV q8h x 6 weeks through 12/24/23 per ID
PT/OT and emphasize need to improve ROM
Pain mgmt
MRI knee - could not tolerate positioning, cancelled since patient is improving
#new onset DM
Accuchecks, Insulin SS, DM diet
Counseled on yearly dilated eye exam, renal disease check and podiatry - first appointments recommended to be scheduled PATRICK. Patient verbalized understanding
#Hyperthyroidism
Outpatient Endocrinology
Started methimazole as per discussion with Endo
#essential HTN
#Obesity with BMI 33
cont home meds
Advise to decrease calorie intake
#Mild Alk.phos elevation
resolved
With no clinical signs of abd pain
DVT ppx lovenox
Full code
General: No Apparent Distress
HEENT: Normocephalic
Respiratory: Clear to Auscultation
Cardiac: Regular Rhythm
GI: Soft, Nontender and Nondistended
Musculoskeletal: No Clubbing, No Cyanosis and No Edema. Right knee stitches
Neuro: Awake, Alert, Oriented and AO x 3
Anticipated Discharge: > 48 hours
Subjective/Interval History
-
Date of Service: November 23, 2023
denies nausea
Objective Data
-
Labs:
Laboratory Results
11/23/23
07:17
WBC 6.0
Hgb 11.0 L
Hct 33.8 L
Plt Count 434 H
Sodium 140
Potassium 4.8
Chloride 99
Carbon Dioxide 30
BUN 14
Creatinine 0.7
Glucose 104 H
Calcium 9.5
Vital Signs:
Vital Signs
Temp Pulse Resp BP Pulse Ox
97.7 F 93 18 140/69 99
11/23/23 07:10 11/23/23 07:10 11/23/23 07:10 11/23/23 07:10 11/23/23 07:10
I&O
11/22/23 11/23/23 11/24/23
06:59 06:59 06:59
Intake Total 960 / 960 320 / 320 240 / 240
Balance 960 / 960 320 / 320 240 / 240
[2023-11-23 15:20] VITALS: BP 110/57
[2023-11-23 16:31] VITALS: BP 96/47; PULSE 86; O2SAT 99
[2023-11-23 16:48] LABS: Glucose - Point of Care 136 mg/dl (70-99)
[2023-11-23] MEDS: LOVENOX 40 MG SC (16:55)
[2023-11-23] MEDS: DILAUDID 1 MG IV (20:13)
[2023-11-23] MEDS: FLUSH (NSS) 1 FLUSH IV (20:15)
[2023-11-23 21:19] LABS: Glucose - Point of Care 121 mg/dl (70-99)
[2023-11-23 23:45] VITALS: BP 100/52
[2023-11-24] MEDS: ANCEF 10 IV ×3 (05:09→21:06)
[2023-11-24 06:31] VITALS: BP 115/64
[2023-11-24] MEDS: ROXICODONE 10 MG PO ×4 (07:08→20:29)
--- NOTE | 2023-11-24 07:23 | W.PN.UPDATE ---
Update Note
Progress Note Update
Patient seen at the bedside this morning for suture removal. She reports her knee continues to be quite painful, and her symptoms are exacerbated when bending the knee.
Directed exam of the right knee reveals surgical incisions without signs of erythema, drainage or dehiscence. Sutures removed and steri-strips applied. No significant erythema, ecchymosis, or effusion about the knee. Mild tenderness to palpation
generally about the anterior knee. Discomfort elicited with knee ROM. Neurovascularly intact distally.
--Recommend patient work on knee ROM to avoid stiffness. Patient would benefit from PT/OT.
--Ice, [id number] anti-inflammatories and Tylenol as needed.
--Antibiotics per ID recommendation. Currently cefazolin.
--Appreciate medical team efforts. Orthopedics to sign off for now.
[2023-11-24 07:43] LABS: Glucose - Point of Care 120 mg/dl (70-99)
[2023-11-24] MEDS: COLACE 100 MG PO ×2 (07:47→20:27)
[2023-11-24] MEDS: TAPAZOLE 10 MG PO ×2 (07:48→20:29)
[2023-11-24] MEDS: ZEBETA 5 MG PO (07:48)
[2023-11-24] MEDS: VISBIOME 2 CAP PO (07:49)
[2023-11-24 08:05] LABS: % Basophils 0.4 % (0-2); % Immature Granulocytes 0.5 % (0-0.5); % Lymphocytes 35.2 % (20.5-51.1); % Monocytes 6.6 % (1.7-9.3); % Neutrophils 55.3 % (42.2-75.2); Absolute Eosinophils 0.1 10^3/uL (0-0.7); Absolute Monocytes 0.4 10^3/uL (0.1-0.6); Absolute Neutrophils 3.1 10^3/uL (1.4-6.5); Hematocrit 31.9 % (37.0-47.0); Hemoglobin 10.3 g/dL (12.0-16.0); Mean Corp Hgb Conc. 32.3 g/dL (33.0-37.0); Mean Corpuscular Hgb 27.9 pg (27.0-31.0); Mean Corpuscular Volume 86.4 fL (81.0-99.0); Mean Platelet Volume 9.1 fL (7.4-10.4); Nucleated Red Blood Cells % 0 %; Platelet Count 426 10^3/uL (130-400); Red Blood Cell Count 3.69 10^6/uL (4.20-5.40); Red Cell Dist. Width 12.9 % (11.5-14.5); White Blood Cell Count 5.6 10^3/uL (4.8-10.8)
[2023-11-24 08:17] LABS: Blood Urea Nitrogen 13 mg/dl (7-17); Calcium 9.3 mg/dl (8.4-10.2); Carbon Dioxide 29 mmol/L (22-30); Chloride 99 mmol/L (98-107); Estimated Creatinine Clearance 85 ml/min; Glucose 108 mg/dl (70-99); Potassium 4.8 mmol/L (3.5-5.1); Sodium 140 mmol/L (135-145); eGFR > 60.00
--- NOTE | 2023-11-24 12:07 | W.PN.HOSP.TC ---
Today's Communication/Plan
-
Monitor vital signs
see plan
Continue antibiotics
Continue methimazole
Awaiting insurance
Discussed with daughter 11/22
Assessment / Plan
Assessment / Plan
63yo F from [facility], [place] speaking with PMHx of advanced b/l knee OA had hyaluronic injection into her knees in September 2023 and after the injection into R knee - developed worsening swelling and pain. [place] to the hospital.
Found MSSA septic arthritis. Discharge complicated by the need in 6 weeks of IV Abx and [place] recently in [place] medical [place]. 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
A/P:
#R knee septic arthritis related to recent hyaluronic injection
Joint aspiration with MSSA
ID follows, cont Ancef IV for 8 weeks. Offered possible oral Abx if patient wants to self-monitor at home however patient does not want to accept that option,since it is not optimal treatment. cefazolin 2g IV q8h x 6 weeks through 12/24/23 per ID
PT/OT and emphasize need to improve ROM
Pain mgmt
MRI knee - could not tolerate positioning, cancelled since patient is improving
#new onset DM
Accuchecks, Insulin SS, DM diet
Counseled on yearly dilated eye exam, renal disease check and podiatry - first appointments recommended to be scheduled PATRICK. Patient verbalized understanding
#Hyperthyroidism
Outpatient Endocrinology
Started methimazole as per discussion with Endo
#essential HTN
#Obesity with BMI 33
cont home meds
Advise to decrease calorie intake
#Mild Alk.phos elevation
resolved
With no clinical signs of abd pain
DVT ppx lovenox
Full code
General: No Apparent Distress
HEENT: Normocephalic
Respiratory: Clear to Auscultation
Cardiac: Regular Rhythm
GI: Soft, Nontender and Nondistended
Musculoskeletal: No Clubbing, No Cyanosis and No Edema. Right knee stitches
Neuro: Awake, Alert, Oriented and AO x 3
Anticipated Discharge: > 48 hours
Subjective/Interval History
-
Date of Service: November 24, 2023
has some pain
Objective Data
-
Labs:
Laboratory Results
11/24/23
06:42
WBC 5.6
Hgb 10.3 L
Hct 31.9 L
Plt Count 426 H
Sodium 140
Potassium 4.8
Chloride 99
Carbon Dioxide 29
BUN 13
Creatinine 0.6
Glucose 108 H
Calcium 9.3
Vital Signs:
Vital Signs
Temp Pulse Resp BP Pulse Ox
97.8 F 77 16 115/64 97
11/24/23 06:31 11/24/23 06:31 11/24/23 06:31 11/24/23 06:31 11/24/23 06:31
I&O
11/23/23 11/24/23 11/25/23
06:59 06:59 06:59
Intake Total 320 / 320 1440 / 1440
Balance 320 / 320 1440 / 1440
[2023-11-24 12:10] LABS: Glucose - Point of Care 115 mg/dl (70-99)
--- NOTE | 2023-11-24 13:22 | CM ---
CM spoke with Andree at [facility] to request assistance regarding status of MA; family had advised that they met with MA office and applied for community medical assistance. Per Andree, pt does have a recipient number in [place]: [phone] for
community MA.
CM to contact [facility] and family to discuss discharge to home with IV abx; will need [facility] to verify coverage.
[2023-11-24 16:00] VITALS: BP 125/69
--- NOTE | 2023-11-24 16:17 | CM ---
[facility] is willing to provide skilled homecare services for PT, OT, RN and [employer]OR as well as IV abx teaching.
Await notification for start of care.
CM will continue to follow.
Plan: Janine will return home with IV abx with [facility]. [facility] will deliver medication and coordinate with [facility] for for timing of delivery.
[2023-11-24 17:06] LABS: Glucose - Point of Care 101 mg/dl (70-99)
[2023-11-24] MEDS: LOVENOX 40 MG SC (17:30)
[2023-11-24] MEDS: FLUSH (NSS) 1 FLUSH IV (21:06)
[2023-11-24 21:29] LABS: Glucose - Point of Care 127 mg/dl (70-99)
[2023-11-24 23:52] VITALS: BP 120/62
[2023-11-25] MEDS: ANCEF 10 IV ×3 (05:22→22:15)
[2023-11-25] MEDS: ROXICODONE 10 MG PO ×5 (05:51→22:18)
[2023-11-25 07:24] LABS: % Basophils 0.4 % (0-2); % Eosinophils 2.1 % (0-6); % Immature Granulocytes 0.2 % (0-0.5); % Lymphocytes 31.7 % (20.5-51.1); % Neutrophils 58.6 % (42.2-75.2); Absolute Eosinophils 0.1 10^3/uL (0-0.7); Absolute Lymphocytes 1.8 10^3/uL (1.2-3.4); Absolute Monocytes 0.4 10^3/uL (0.1-0.6); Absolute Neutrophils 3.3 10^3/uL (1.4-6.5); Hematocrit 33.2 % (37.0-47.0); Hemoglobin 10.6 g/dL (12.0-16.0); Mean Corp Hgb Conc. 31.9 g/dL (33.0-37.0); Mean Corpuscular Hgb 27.8 pg (27.0-31.0); Mean Corpuscular Volume 87.1 fL (81.0-99.0); Mean Platelet Volume 8.8 fL (7.4-10.4); Nucleated Red Blood Cells % 0 %; Platelet Count 453 10^3/uL (130-400); Red Blood Cell Count 3.81 10^6/uL (4.20-5.40); White Blood Cell Count 5.6 10^3/uL (4.8-10.8)
[2023-11-25 07:41] LABS: Blood Urea Nitrogen 12 mg/dl (7-17); Calcium 9.5 mg/dl (8.4-10.2); Carbon Dioxide 30 mmol/L (22-30); Chloride 99 mmol/L (98-107); Estimated Creatinine Clearance 85 ml/min; Glucose 115 mg/dl (70-99); Potassium 4.7 mmol/L (3.5-5.1); Sodium 140 mmol/L (135-145); eGFR > 60.00
[2023-11-25 07:59] LABS: Glucose - Point of Care 116 mg/dl (70-99)
[2023-11-25] MEDS: TAPAZOLE 10 MG PO ×2 (08:32→20:49)
[2023-11-25] MEDS: ZEBETA 5 MG PO (08:32)
[2023-11-25] MEDS: VISBIOME 2 CAP PO (08:33)
[2023-11-25] MEDS: COLACE 100 MG PO ×2 (08:34→20:49)
[2023-11-25 08:35] VITALS: BP 104/57
[2023-11-25 12:12] LABS: Glucose - Point of Care 89 mg/dl (70-99)
--- NOTE | 2023-11-25 12:25 | W.PN.HOSP.TC ---
Today's Communication/Plan
-
Monitor vital signs see plan
Pain control
Continue antibiotics
Discharge when has insurance assistance; CM involved
Assessment / Plan
Assessment / Plan
63yo F from [facility], [place] speaking with PMHx of advanced b/l knee OA had hyaluronic injection into her knees in September 2023 and after the injection into R knee - developed worsening swelling and pain. [place] and was [place] to the hospital.
Found MSSA septic arthritis. Discharge complicated by the need in 6 weeks of IV Abx and [place] recently [place] medical [place]. 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
A/P:
#R knee septic arthritis related to recent hyaluronic injection
Joint aspiration with MSSA
ID follows, cont Ancef IV for 8 weeks. Offered possible oral Abx if patient wants to self-monitor at home however patient does not want to accept that option,since it is not optimal treatment. cefazolin 2g IV q8h x 6 weeks through 12/24/23 per ID
PT/OT and emphasize need to improve ROM
Pain mgmt
MRI knee - could not tolerate positioning, cancelled since patient is improving
#new onset DM
Accuchecks, Insulin SS, DM diet
Counseled on yearly dilated eye exam, renal disease check and podiatry - first appointments recommended to be scheduled PATRICK. Patient verbalized understanding
#Hyperthyroidism
Outpatient Endocrinology
Started methimazole as per discussion with Endo
#essential HTN
#Obesity with BMI 33
cont home meds
Advise to decrease calorie intake
#Mild Alk.phos elevation
resolved
With no clinical signs of abd pain
DVT ppx lovenox
Full code
General: No Apparent Distress
HEENT: Normocephalic
Respiratory: Clear to Auscultation
Cardiac: Regular Rhythm
GI: Soft, Nontender and Nondistended
Musculoskeletal: No Clubbing, No Cyanosis and No Edema. Right knee stitches
Neuro: Awake, Alert, Oriented and AO x 3
Anticipated Discharge: 24 - 48 hours
Subjective/Interval History
-
Date of Service: November 25, 2023
has some pain
Objective Data
-
Labs:
Laboratory Results
11/25/23
07:00
WBC 5.6
Hgb 10.6 L
Hct 33.2 L
Plt Count 453 H
Sodium 140
Potassium 4.7
Chloride 99
Carbon Dioxide 30
BUN 12
Creatinine 0.6
Glucose 115 H
Calcium 9.5
Vital Signs:
Vital Signs
Temp Pulse Resp BP Pulse Ox
98.3 F 77 18 104/57 99
11/25/23 08:35 11/25/23 08:35 11/25/23 08:35 11/25/23 08:35 11/25/23 08:35
I&O
11/24/23 11/25/23 11/26/23
06:59 06:59 06:59
Intake Total 1440 / 1440
Balance 1440 / 1440
[2023-11-25] MEDS: TYLENOL 1000 MG PO ×2 (12:49→21:02)
--- NOTE | 2023-11-25 13:01 | CM ---
CM called [facility] and left a VM for Lorrie in intake to discuss start of care. Pt's daughter would like Janine to return home. [facility] will provide the medication; [facility] will provide IV teaching, RN, PT and OT. Both
agencies need to coordinate for start of care.
Await response from [facility] to determine discharge/timing for start of care.
Plan: CM to follow for discharge to home with IV abx (to be delivered by [facility]) and home care services with [facility].
[2023-11-25 16:20] VITALS: BP 114/55
[2023-11-25] MEDS: TYLENOL PO ×2 (16:31→17:42)
[2023-11-25 16:54] LABS: Glucose - Point of Care 115 mg/dl (70-99)
[2023-11-25] MEDS: LOVENOX 40 MG SC (17:52)
[2023-11-25 22:04] LABS: Glucose - Point of Care 112 mg/dl (70-99)
[2023-11-25 23:41] VITALS: BP 97/48
[2023-11-26] MEDS: ANCEF 10 IV ×3 (06:17→22:30)
[2023-11-26] MEDS: ROXICODONE 10 MG PO ×3 (06:32→22:29)
[2023-11-26 07:42] LABS: % Basophils 0.4 % (0-2); % Eosinophils 2.3 % (0-6); % Immature Granulocytes 0.4 % (0-0.5); % Lymphocytes 35.7 % (20.5-51.1); % Monocytes 7.6 % (1.7-9.3); % Neutrophils 53.6 % (42.2-75.2); Absolute Eosinophils 0.1 10^3/uL (0-0.7); Absolute Lymphocytes 1.8 10^3/uL (1.2-3.4); Absolute Monocytes 0.4 10^3/uL (0.1-0.6); Absolute Neutrophils 2.7 10^3/uL (1.4-6.5); Hematocrit 33.6 % (37.0-47.0); Hemoglobin 10.9 g/dL (12.0-16.0); Mean Corp Hgb Conc. 32.4 g/dL (33.0-37.0); Mean Corpuscular Hgb 28.1 pg (27.0-31.0); Mean Corpuscular Volume 86.6 fL (81.0-99.0); Mean Platelet Volume 8.9 fL (7.4-10.4); Nucleated Red Blood Cells % 0 %; Platelet Count 474 10^3/uL (130-400); Red Blood Cell Count 3.88 10^6/uL (4.20-5.40); White Blood Cell Count 5.1 10^3/uL (4.8-10.8)
[2023-11-26 08:01] VITALS: BP 108/53
[2023-11-26 08:20] LABS: Blood Urea Nitrogen 13 mg/dl (7-17); Calcium 9.5 mg/dl (8.4-10.2); Carbon Dioxide 28 mmol/L (22-30); Chloride 98 mmol/L (98-107); Estimated Creatinine Clearance 85 ml/min; Glucose 95 mg/dl (70-99); Potassium 4.8 mmol/L (3.5-5.1); Sodium 140 mmol/L (135-145); eGFR > 60.00
[2023-11-26 08:27] LABS: Glucose - Point of Care 100 mg/dl (70-99)
[2023-11-26] MEDS: TAPAZOLE 10 MG PO ×2 (10:16→21:30)
[2023-11-26] MEDS: TYLENOL 1000 MG PO ×2 (10:16→16:31)
[2023-11-26] MEDS: ZEBETA 5 MG PO (10:16)
[2023-11-26] MEDS: VISBIOME 2 CAP PO (10:17)
[2023-11-26] MEDS: COLACE 100 MG PO ×2 (10:17→21:30)
--- NOTE | 2023-11-26 10:28 | CM ---
Addendum entered by Maryse Osman 11/26/23 13:35:
Spoke via phone with patient's daughterNash
Explained to daughter that PT recommended short term skilled placement for rehab and IV ABX administration
Daughter will discuss with family and reconsider SNF now that Medicaid was approved.
Addendum entered by Maryse Osman 11/26/23 10:41:
Home Health referral accepted by [facility] . [facility] is a Certified Medicaid HH agency

Original Note:
Per [facility], patient's Medicaid application was approved 11/19/2023; the Medicaid recipient ID # [id number]
[2023-11-26 12:30] LABS: Glucose - Point of Care 106 mg/dl (70-99)
--- NOTE | 2023-11-26 13:09 | W.PN.HOSP.TC ---
Today's Communication/Plan
-
monitor vitals
see plan
cw pain control
cw abx
family willing to provide help at home with abx if they learn however would need someone during the day to help
Assessment / Plan
Assessment / Plan
63[facility] [place] speaking with PMHx of advanced b/l knee OA had hyaluronic injection into her knees in September 2023 and after the injection into R knee - developed worsening swelling and pain. [place] to the hospital.
Found MSSA septic arthritis. Discharge complicated by the need in 6 weeks of IV Abx and [place] recently [place] medical [place]. 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
A/P:
#R knee septic arthritis related to recent hyaluronic injection
Joint aspiration with MSSA
ID follows, cont Ancef IV for 8 weeks. Offered possible oral Abx if patient wants to self-monitor at home however patient does not want to accept that option,since it is not optimal treatment. cefazolin 2g IV q8h x 6 weeks through 12/24/23 per ID.
patient family will also assist in abx
PT/OT and emphasize need to improve ROM
Pain mgmt
MRI knee - could not tolerate positioning, cancelled since patient is improving
#new onset DM
Accuchecks, Insulin SS, DM diet
Counseled on yearly dilated eye exam, renal disease check and podiatry - first appointments recommended to be scheduled PATRICK. Patient verbalized understanding
#Hyperthyroidism
Outpatient Endocrinology
Started methimazole as per discussion with Endo
#essential HTN
#Obesity with BMI 33
cont home meds
Advise to decrease calorie intake
#Mild Alk.phos elevation
resolved
With no clinical signs of abd pain
DVT ppx lovenox
Full code
General: No Apparent Distress
HEENT: Normocephalic
Respiratory: Clear to Auscultation
Cardiac: Regular Rhythm
GI: Soft, Nontender and Nondistended
Musculoskeletal: No Clubbing, No Cyanosis and No Edema. Right knee stitches
Neuro: Awake, Alert, Oriented and AO x 3
Anticipated Discharge: Within 24 hours
Subjective/Interval History
-
Date of Service: November 26, 2023
has some pain
Objective Data
-
Labs:
Laboratory Results
11/26/23
06:43
WBC 5.1
Hgb 10.9 L
Hct 33.6 L
Plt Count 474 H
Sodium 140
Potassium 4.8
Chloride 98
Carbon Dioxide 28
BUN 13
Creatinine 0.6
Glucose 95
Calcium 9.5
Vital Signs:
Vital Signs
Temp Pulse Resp BP Pulse Ox
98.3 F 68 18 108/53 96
11/26/23 08:01 11/26/23 08:01 11/26/23 08:01 11/26/23 08:01 11/26/23 08:01
I&O
11/25/23 11/26/23 11/27/23
06:59 06:59 06:59
Intake Total 420 / 420
Balance 420 / 420
[2023-11-26] MEDS: FLUSH (NSS) 2 FLUSH IV (13:58)
--- NOTE | 2023-11-26 15:03 | W.PN.ID1 ---
Date of Service
Date of Service: November 26, 2023
Today's Communication
Continue cefazolin.
Assessment / Plan
# [place] right knee MSSA septic arthritis s/p washout 11/12/23. OR cx MSSA
- CRP trending down
- Continue cefazolin 2g IV q8h x 6 weeks through 12/24/23.
- Follow weekly CBC, CMP, CRP
-PICC placement when close to discharge
-Medical Assistance approved 11/26/23.
- PT recommends rehab.
# New onset DM
#HTN
# Hyperthyroidism
Chief Complaint
-: Other (septic knee)
Subjective / Review of Systems
+ right knee discomfort
Vital Signs / Physical Exam
Vital Signs
Vital Signs
Temp Pulse Resp BP Pulse Ox
98.3 F 68 18 108/53 96
11/26/23 08:01 11/26/23 08:01 11/26/23 08:01 11/26/23 08:01 11/26/23 08:01
Physical Exam
Constitutional: No Acute Distress
Gastrointestinal: Soft, Non Tender and Non Distended
Musculoskeletal: Other (right knee: mild induration, no erythema )
Objective Data
Lab Data
Lab Results
11/26/23 06:43
11/26/23 06:43
ESR 96 mm/hour (0-20) H 11/12/23 10:49
Estimated Creat Clear 85 ml/min 11/26/23 06:43
Total Bilirubin 0.3 mg/dl (0.2-1.3) 11/22/23 06:27
AST 17 U/L (14-36) 11/22/23 06:27
ALT < 10 U/L (0-35) 11/22/23 06:27
Alkaline Phosphatase 81 U/L (38-126) 11/22/23 06:27
C-Reactive Protein 24.20 mg/L (0.0-10.00) H 11/25/23 07:00
Most recent labs reviewed.
Micro Results:
11/15/23 12:13 Blood Culture - Final
Blood/Venous No Growth - Final Report
11/15/23 11:46 Blood Culture - Final
Blood/Venous No Growth - Final Report
11/12/23 15:51 Anaerobic Culture - Final
Knee - Right NO ANAEROBES ISOLATED
11/12/23 15:51 Wound Culture - Final
Knee - Right S aureus-Methicillin Sensitive
Gram Stain - Final
[2023-11-26 16:30] VITALS: BP 107/49
[2023-11-26 17:19] LABS: Glucose - Point of Care 102 mg/dl (70-99)
[2023-11-26] MEDS: LOVENOX SC (17:23)
[2023-11-26 21:21] LABS: Glucose - Point of Care 142 mg/dl (70-99)
[2023-11-26] MEDS: ANCEF IV (21:30)
[2023-11-26] MEDS: TYLENOL PO ×2 (21:41→21:45)
[2023-11-26 23:00] VITALS: BP 120/65
[2023-11-27] MEDS: ANCEF 10 IV ×3 (06:21→21:39)
[2023-11-27 07:28] LABS: Glucose - Point of Care 105 mg/dl (70-99)
[2023-11-27 07:30] VITALS: BP 120/78
[2023-11-27] MEDS: ROXICODONE 2.5 MG PO (07:57)
[2023-11-27] MEDS: TYLENOL PO ×4 (11:32→21:48)
[2023-11-27] MEDS: COLACE 100 MG PO ×2 (11:32→21:47)
[2023-11-27] MEDS: ZEBETA 5 MG PO (11:32)
[2023-11-27] MEDS: TAPAZOLE 10 MG PO ×2 (11:32→21:39)
[2023-11-27 11:50] LABS: Glucose - Point of Care 95 mg/dl (70-99)
[2023-11-27] MEDS: ROXICODONE 10 MG PO ×3 (12:00→21:38)
[2023-11-27] MEDS: VISBIOME PO ×2 (12:01→12:03)
--- NOTE | 2023-11-27 12:46 | W.PN.HOSP.TC ---
Today's Communication/Plan
-
Monitor vital signs see plan
Pain control
PT/OT
cw abx
DC planning; needs SNF
Daughter updated over the phone
Assessment / Plan
Assessment / Plan
63yo F from [facility], [place] speaking with PMHx of advanced b/l knee OA had hyaluronic injection into her knees in September 2023 and after the injection into R knee - developed worsening swelling and pain. [place] to [place] hospital.
Found MSSA septic arthritis. Discharge complicated by the need in 6 weeks of IV Abx and [place] recently [place] medical [place]. 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
A/P:
#R knee septic arthritis related to recent hyaluronic injection
Joint aspiration with MSSA
ID follows, cont Ancef IV for 8 weeks. Offered possible oral Abx if patient wants to self-monitor at home however patient does not want to accept that option,since it is not optimal treatment. cefazolin 2g IV q8h x 6 weeks through 12/24/23 per ID.
patient family will also assist in abx
PT/OT and emphasize need to improve ROM
Pain mgmt
MRI knee - could not tolerate positioning, cancelled since patient is improving
now has Insurance; spoke with shelter case manager and family. Plan now for patient to go to SNF
stitches has been removed by orthopedics. Patient will follow-up with orthopedics outpatient
#new onset DM
Accuchecks, Insulin SS, DM diet
Counseled on yearly dilated eye exam, renal disease check and podiatry - first appointments recommended to be scheduled PATRICK. Patient verbalized understanding
#Hyperthyroidism
Outpatient Endocrinology
Started methimazole as per discussion with Endo
#essential HTN
#Obesity with BMI 33
cont home meds
Advise to decrease calorie intake
#Mild Alk.phos elevation
resolved
With no clinical signs of abd pain
DVT ppx lovenox
Full code
General: No Apparent Distress
HEENT: Normocephalic
Respiratory: Clear to Auscultation
Cardiac: Regular Rhythm
GI: Soft, Nontender and Nondistended
Musculoskeletal: No Clubbing, No Cyanosis and No Edema. right knee pain
Neuro: Awake, Alert, Oriented and AO x 3
Anticipated Discharge: 24 - 48 hours
Subjective/Interval History
-
Date of Service: November 27, 2023
has pain at times
Objective Data
-
Vital Signs:
Vital Signs
Temp Pulse Resp BP Pulse Ox
98.0 F 90 16 120/78 96
11/26/23 23:00 11/27/23 07:30 11/26/23 23:00 11/27/23 07:30 11/26/23 23:00
I&O
11/26/23 11/27/23 11/28/23
06:59 06:59 06:59
Intake Total 420 / 420 720 / 720
Output Total 100 / 100
Balance 420 / 420 620 / 620
[2023-11-27] MEDS: FLUSH (NSS) 2 FLUSH IV (14:09)
[2023-11-27 15:39] VITALS: BP 101/55
[2023-11-27 16:46] LABS: Glucose - Point of Care 131 mg/dl (70-99)
[2023-11-27] MEDS: LOVENOX SC (17:29)
[2023-11-27] MEDS: TYLENOL 1000 MG PO (17:30)
[2023-11-27 21:13] LABS: Glucose - Point of Care 112 mg/dl (70-99)
[2023-11-27 23:00] VITALS: BP 91/51
[2023-11-28] MEDS: ANCEF 10 IV ×3 (06:18→22:15)
[2023-11-28] MEDS: ROXICODONE 10 MG PO ×2 (06:20→19:58)
[2023-11-28 07:44] LABS: Glucose - Point of Care 111 mg/dl (70-99)
[2023-11-28 07:57] LABS: % Basophils 0.6 % (0-2); % Eosinophils 1.6 % (0-6); % Immature Granulocytes 0.4 % (0-0.5); % Lymphocytes 37.5 % (20.5-51.1); % Monocytes 8.7 % (1.7-9.3); % Neutrophils 51.2 % (42.2-75.2); Absolute Eosinophils 0.1 10^3/uL (0-0.7); Absolute Lymphocytes 1.9 10^3/uL (1.2-3.4); Absolute Monocytes 0.4 10^3/uL (0.1-0.6); Absolute Neutrophils 2.6 10^3/uL (1.4-6.5); Hematocrit 35.4 % (37.0-47.0); Hemoglobin 11.4 g/dL (12.0-16.0); Mean Corp Hgb Conc. 32.2 g/dL (33.0-37.0); Mean Corpuscular Hgb 27.9 pg (27.0-31.0); Mean Corpuscular Volume 86.8 fL (81.0-99.0); Mean Platelet Volume 8.9 fL (7.4-10.4); Nucleated Red Blood Cells % 0 %; Platelet Count 444 10^3/uL (130-400); Red Blood Cell Count 4.08 10^6/uL (4.20-5.40); White Blood Cell Count 5.1 10^3/uL (4.8-10.8)
[2023-11-28 08:07] VITALS: BP 89/59
[2023-11-28 08:18] LABS: Blood Urea Nitrogen 13 mg/dl (7-17); Calcium 9.3 mg/dl (8.4-10.2); Carbon Dioxide 29 mmol/L (22-30); Chloride 99 mmol/L (98-107); Estimated Creatinine Clearance 85 ml/min; Glucose 97 mg/dl (70-99); Potassium 4.8 mmol/L (3.5-5.1); Sodium 139 mmol/L (135-145); eGFR > 60.00
[2023-11-28 09:39] VITALS: BP 125/65
[2023-11-28] MEDS: TAPAZOLE 10 MG PO ×2 (09:39→19:58)
[2023-11-28] MEDS: VISBIOME 2 CAP PO (09:39)
[2023-11-28] MEDS: COLACE 100 MG PO ×2 (09:39→19:58)
[2023-11-28] MEDS: ZEBETA PO (09:40)
[2023-11-28] MEDS: TYLENOL PO ×3 (09:44→22:15)
[2023-11-28 11:42] LABS: Glucose - Point of Care 105 mg/dl (70-99)
--- NOTE | 2023-11-28 12:02 | W.PN.HOSP.TC ---
Today's Communication/Plan
-
Monitor vital signs and see plan
Pain control
PT/OT
Discharge planning
Discussed with daughter at bedside
Assessment / Plan
Assessment / Plan
63yo F from [facility], [place] speaking with PMHx of advanced b/l knee OA had hyaluronic injection into her knees in September 2023 and after the injection into R knee - developed worsening swelling and pain. [place] to [place] hospital.
Found MSSA septic arthritis. Discharge complicated by the need in 6 weeks of IV Abx and [place] recently [place] medical [place]. 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
A/P:
#R knee septic arthritis related to recent hyaluronic injection
Joint aspiration with MSSA
ID follows, cont Ancef IV for 8 weeks. Offered possible oral Abx if patient wants to self-monitor at home however patient does not want to accept that option,since it is not optimal treatment. cefazolin 2g IV q8h x 6 weeks through 12/24/23 per ID.
patient family will also assist in abx
PT/OT and emphasize need to improve ROM
Pain mgmt; still has pain; would start tramadol scheduled so she doesnt have to use much oxy. Spoke with daughter again today, now family is interested in SNF. eventually i believe she would need surgery for her arthritis after infection is resolved
MRI knee - could not tolerate positioning, cancelled since patient is improving
now has Insurance; spoke with pillowcase maker and family. Plan now for patient to go to SNF
stitches has been removed by orthopedics. Patient will follow-up with orthopedics outpatient
#new onset DM
Accuchecks, Insulin SS, DM diet
Counseled on yearly dilated eye exam, renal disease check and podiatry - first appointments recommended to be scheduled PATRICK. Patient verbalized understanding
#Hyperthyroidism
Outpatient Endocrinology
Started methimazole as per discussion with Endo
#essential HTN
#Obesity with BMI 33
cont home meds
Advise to decrease calorie intake
#Mild Alk.phos elevation
resolved
With no clinical signs of abd pain
DVT ppx lovenox
Full code
Patient now has insurance. Spoke with pillowcase maker, now family is interested in SNF.
General: No Apparent Distress
HEENT: Normocephalic
Respiratory: Clear to Auscultation
Cardiac: Regular Rhythm
GI: Soft, Nontender and Nondistended
Musculoskeletal: No Clubbing, No Cyanosis and No Edema. right knee pain
Neuro: Awake, Alert, Oriented and AO x 3
Anticipated Discharge: 24 - 48 hours
Subjective/Interval History
-
Date of Service: November 28, 2023
still has some pain
Objective Data
-
Labs:
Laboratory Results
11/28/23
06:14
WBC 5.1
Hgb 11.4 L
Hct 35.4 L
Plt Count 444 H
Sodium 139
Potassium 4.8
Chloride 99
Carbon Dioxide 29
BUN 13
Creatinine 0.6
Glucose 97
Calcium 9.3
Vital Signs:
Vital Signs
Temp Pulse Resp BP Pulse Ox
98 F 90 16 125/65 100
11/28/23 08:07 11/28/23 09:39 11/28/23 08:07 11/28/23 09:39 11/28/23 08:07
I&O
11/27/23 11/28/23 11/29/23
06:59 06:59 06:59
Intake Total 720 / 720 1080 / 1080
Output Total 100 / 100
Balance 620 / 620 1080 / 1080
[2023-11-28] MEDS: ULTRAM 25 MG PO (12:22)
[2023-11-28] MEDS: PROTONIX 40 MG PO (12:22)
[2023-11-28] MEDS: ZOFRAN 4 MG IV (13:15)
[2023-11-28 15:36] VITALS: BP 114/61
[2023-11-28 16:57] LABS: Glucose - Point of Care 111 mg/dl (70-99)
[2023-11-28] MEDS: LOVENOX SC (17:12)
[2023-11-28] MEDS: ULTRAM PO (17:27)
[2023-11-28 21:32] LABS: Glucose - Point of Care 145 mg/dl (70-99)
[2023-11-28 23:00] VITALS: BP 109/65
[2023-11-29] MEDS: ULTRAM PO ×5 (00:35→23:59)
[2023-11-29] MEDS: ANCEF 10 IV ×3 (05:51→20:56)
[2023-11-29] MEDS: ROXICODONE 10 MG PO ×4 (05:58→20:56)
[2023-11-29 07:48] LABS: % Basophils 0.2 % (0-2); % Eosinophils 1.9 % (0-6); % Immature Granulocytes 0.4 % (0-0.5); % Lymphocytes 32.1 % (20.5-51.1); % Monocytes 7.6 % (1.7-9.3); % Neutrophils 57.8 % (42.2-75.2); Absolute Eosinophils 0.1 10^3/uL (0-0.7); Absolute Lymphocytes 1.7 10^3/uL (1.2-3.4); Absolute Monocytes 0.4 10^3/uL (0.1-0.6); Hematocrit 35.4 % (37.0-47.0); Hemoglobin 11.4 g/dL (12.0-16.0); Mean Corp Hgb Conc. 32.2 g/dL (33.0-37.0); Mean Platelet Volume 8.7 fL (7.4-10.4); Nucleated Red Blood Cells % 0 %; Platelet Count 407 10^3/uL (130-400); Red Blood Cell Count 4.07 10^6/uL (4.20-5.40); White Blood Cell Count 5.3 10^3/uL (4.8-10.8)
[2023-11-29 07:50] VITALS: BP 100/60
[2023-11-29 08:01] LABS: Glucose - Point of Care 109 mg/dl (70-99)
[2023-11-29 08:50] LABS: Blood Urea Nitrogen 13 mg/dl (7-17); Calcium 9.5 mg/dl (8.4-10.2); Carbon Dioxide 29 mmol/L (22-30); Chloride 98 mmol/L (98-107); Estimated Creatinine Clearance 85 ml/min; Glucose 106 mg/dl (70-99); Potassium 4.4 mmol/L (3.5-5.1); Sodium 139 mmol/L (135-145); eGFR > 60.00
[2023-11-29] MEDS: PROTONIX 40 MG PO (09:23)
[2023-11-29] MEDS: VISBIOME 2 CAP PO (09:23)
[2023-11-29] MEDS: ZEBETA 5 MG PO (09:23)
[2023-11-29] MEDS: COLACE 100 MG PO ×2 (09:24→20:55)
[2023-11-29] MEDS: TAPAZOLE 10 MG PO ×2 (09:24→20:55)
[2023-11-29] MEDS: TYLENOL PO ×3 (09:27→20:00)
[2023-11-29 12:11] LABS: Glucose - Point of Care 105 mg/dl (70-99)
--- NOTE | 2023-11-29 12:38 | W.PN.ID1 ---
Date of Service
Date of Service: November 29, 2023
Today's Communication
Midline placement when close to discharge
Assessment / Plan
# [place] right knee MSSA septic arthritis s/p washout 11/12/23. OR cx MSSA
- CRP trending down
- Continue cefazolin 2g IV q8h x 6 weeks through 12/24/23.
- Follow weekly CBC, CMP, CRP
- Midline placement when close to discharge
-Medical Assistance approved 11/26/23.
- Awaiting SNF rehab placment.
# New onset DM
#HTN
# Hyperthyroidism
Chief Complaint
-: Other (septic knee)
Vital Signs / Physical Exam
Vital Signs
Vital Signs
Temp Pulse Resp BP Pulse Ox
97.9 F 82 18 100/60 98
11/29/23 07:50 11/29/23 09:23 11/29/23 07:50 11/29/23 09:23 11/29/23 07:50
Physical Exam
Musculoskeletal: Other (right knee: no erythema/warmth, + mild induration)
Objective Data
Lab Data
Lab Results
11/29/23 07:32
11/29/23 07:32
ESR 96 mm/hour (0-20) H 11/12/23 10:49
Estimated Creat Clear 85 ml/min 11/29/23 07:32
Total Bilirubin 0.3 mg/dl (0.2-1.3) 11/22/23 06:27
AST 17 U/L (14-36) 11/22/23 06:27
ALT < 10 U/L (0-35) 11/22/23 06:27
Alkaline Phosphatase 81 U/L (38-126) 11/22/23 06:27
C-Reactive Protein 24.20 mg/L (0.0-10.00) H 11/25/23 07:00
Most recent labs reviewed.
Micro Results:
11/15/23 12:13 Blood Culture - Final
Blood/Venous No Growth - Final Report
11/15/23 11:46 Blood Culture - Final
Blood/Venous No Growth - Final Report
11/12/23 15:51 Anaerobic Culture - Final
Knee - Right NO ANAEROBES ISOLATED
11/12/23 15:51 Wound Culture - Final
Knee - Right S aureus-Methicillin Sensitive
Gram Stain - Final
--- NOTE | 2023-11-29 12:50 | W.PN.HOSP.TC ---
Today's Communication/Plan
-
CM for rehab
Plan to place midline
Assessment / Plan
Assessment / Plan
63[place] [facility] speaking with PMHx of advanced b/l knee OA had hyaluronic injection into her knees in September 2023 and after the injection into R knee - developed worsening swelling and pain. [place] to [place] hospital.
Found MSSA septic arthritis. Discharge complicated by the need in 6 weeks of IV Abx and patient [place] recently in [place] medical [place]. 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 - received MA and pending rehab
A/P:
#R knee septic arthritis related to recent hyaluronic injection
Joint aspiration with MSSA
ID follows, cont Ancef IV for 8 weeks. Offered possible oral Abx if patient wants to self-monitor at home however patient does not want to accept that option,since it is not optimal treatment. cefazolin 2g IV q8h x 6 weeks through 12/24/23 per ID.
patient family will also assist in abx
PT/OT and emphasize need to improve ROM
Pain mgmt; still has pain; would start tramadol scheduled so she doesnt have to use much oxy.
MRI knee - could not tolerate positioning, cancelled since patient is improving
stitches has been removed by orthopedics. Patient will follow-up with orthopedics outpatient
#new onset DM
Accuchecks, Insulin SS, DM diet
Counseled on yearly dilated eye exam, renal disease check and podiatry - first appointments recommended to be scheduled PATRICK. Patient verbalized understanding
#Hyperthyroidism
Outpatient Endocrinology
Started methimazole as per discussion with Endo
#essential HTN
#Obesity with BMI 33
cont home meds
Advise to decrease calorie intake
#Mild Alk.phos elevation
resolved
With no clinical signs of abd pain
DVT ppx lovenox
Full code
I have spent at least 38min reviewing chart, test results and providing direct patient care
Anticipated Discharge: 24 - 48 hours
Subjective/Interval History
-
Date of Service: November 29, 2023
Objective Data
-
Labs:
Laboratory Results
11/29/23
07:32
WBC 5.3
Hgb 11.4 L
Hct 35.4 L
Plt Count 407 H
Sodium 139
Potassium 4.4
Chloride 98
Carbon Dioxide 29
BUN 13
Creatinine 0.6
Glucose 106 H
Calcium 9.5
Vital Signs:
Vital Signs
Temp Pulse Resp BP Pulse Ox
97.9 F 82 18 100/60 98
11/29/23 07:50 11/29/23 09:23 11/29/23 07:50 11/29/23 09:23 11/29/23 07:50
I&O
11/28/23 11/29/23 11/30/23
06:59 06:59 06:59
Intake Total 1080 / 1080 720 / 720 480 / 480
Balance 1080 / 1080 720 / 720 480 / 480
Review of Systems
-
History Source: Patient
All other systems: Reviewed and negative
Constitutional: Reports Fatigue
Physical Exam
-
General: No Apparent Distress
HEENT: Normocephalic
Respiratory: Clear to Auscultation
Cardiac: Regular Rhythm
GI: Soft, Nontender and Nondistended
Skin: Warm
Neuro: Awake, Alert, Oriented and AO x 3
--- NOTE | 2023-11-29 15:22 | CM ---
Spoke to Andree in [facility], per Andree patient only has a [place] recipient number. In order to be eligible to obtain an [place] Managed Care product, patient must have green card for over 5 years. Andree believes patient just recently obtained a green card.
Update to .
[2023-11-29 16:19] VITALS: BP 117/64
[2023-11-29] MEDS: LOVENOX SC (17:08)
[2023-11-29 17:26] LABS: Glucose - Point of Care 125 mg/dl (70-99)
[2023-11-29 21:24] LABS: Glucose - Point of Care 136 mg/dl (70-99)
[2023-11-29 23:11] VITALS: BP 112/65
[2023-11-30] MEDS: ROXICODONE 10 MG PO ×4 (01:06→19:54)
[2023-11-30] MEDS: ANCEF 10 IV ×3 (05:42→21:06)
[2023-11-30 07:26] VITALS: BP 101/48
[2023-11-30] MEDS: ULTRAM PO (07:50)
[2023-11-30 07:58] LABS: Glucose - Point of Care 100 mg/dl (70-99)
[2023-11-30] MEDS: COLACE 100 MG PO ×2 (08:00→19:54)
[2023-11-30] MEDS: PROTONIX 40 MG PO (08:00)
[2023-11-30] MEDS: TAPAZOLE 10 MG PO ×2 (08:00→19:54)
[2023-11-30] MEDS: TYLENOL 1000 MG PO ×2 (08:13→21:05)
[2023-11-30] MEDS: ZOFRAN 4 MG IV ×2 (09:59→19:56)
--- NOTE | 2023-11-30 10:36 | W.PN.HOSP.TC ---
Today's Communication/Plan
-
CM for further home vs rehab
recheck thyroid test in AM
Assessment / Plan
Assessment / Plan
63[facility] [place] [facility] [place] speaking with PMHx of advanced b/l knee OA had hyaluronic injection into her knees in September 2023 and after the injection into R knee - developed worsening swelling and pain. [place] was [place] to the hospital.
Found MSSA septic arthritis. Discharge complicated by the need in 6 weeks of IV Abx and [place] recently in [place] medical [place]. 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 - received MA and plan for home infusion vs rehab
A/P:
#R knee septic arthritis related to recent hyaluronic injection
Joint aspiration with MSSA
ID follows, cont Ancef IV for 8 weeks. Offered possible oral Abx if patient wants to self-monitor at home however patient does not want to accept that option,since it is not optimal treatment. cefazolin 2g IV q8h x 6 weeks through 12/24/23 per ID.
patient family will also assist in abx
PT/OT and emphasize need to improve ROM
Pain mgmt; still has pain; would start tramadol scheduled so she doesnt have to use much oxy.
MRI knee - could not tolerate positioning, cancelled since patient is improving
stitches has been removed by orthopedics. Patient will follow-up with orthopedics outpatient
#new onset DM
Accuchecks, Insulin SS, DM diet
Counseled on yearly dilated eye exam, renal disease check and podiatry - first appointments recommended to be scheduled PATRICK. Patient verbalized understanding
#Hyperthyroidism
Outpatient Endocrinology
Started methimazole as per discussion with Endo
#essential HTN
#Obesity with BMI 33
cont home meds
Advise to decrease calorie intake
#Mild Alk.phos elevation
resolved
With no clinical signs of abd pain
DVT ppx lovenox
Full code
I have spent at least 38min reviewing chart, test results and providing direct patient care
Anticipated Discharge: > 48 hours
Subjective/Interval History
-
Date of Service: November 30, 2023
Objective Data
-
Vital Signs:
Vital Signs
Temp Pulse Resp BP Pulse Ox
99.4 F 76 18 101/48 96
11/30/23 07:26 11/30/23 07:26 11/30/23 07:26 11/30/23 07:26 11/30/23 07:26
I&O
11/29/23 11/30/23 12/01/23
06:59 06:59 06:59
Intake Total 720 / 720 2340 / 2340
Balance 720 / 720 2340 / 2340
Review of Systems
-
History Source: Patient
All other systems: Reviewed and negative
Physical Exam
-
General: No Apparent Distress
HEENT: Normocephalic
Cardiac: Regular Rhythm
GI: Soft, Nontender and Nondistended
Neuro: Awake, Alert, Oriented and AO x 3
Psych: Calm
[2023-11-30 11:56] LABS: Glucose - Point of Care 116 mg/dl (70-99)
--- NOTE | 2023-11-30 12:47 | PN.CDI ---
CDI
- -
CDI:
Physician Documentation Request
Admit Date: 11/12/23 13:29
Dear Doctor Leonardo,
Patient admitted with right septic knee arthritis.
11/11 Op note, 'PROCEDURE: Right knee arthroscopy with irrigation and debridement
and extensive synovectomy.... an extensive debridement was performed of the knee
joint with an arthroscopic shaver. 9 L of normal saline were
flushed through the knee joint during the synovectomy and
debridement.'
Please provide in your note the following:
Please specify the type of debridement performed:
1. Excisional Debridement - defined as removal by excision of devitalized tissue, necrosis or slough
2. Non-excisional debridement - defined as removal of devitalized tissue, necrosis or slough by such methods as irrigation, brushing, scrubbing or washing.
If the debridement was excisional, please also include:
1. What was excised (necrotic tissue, gangrenous tissue, slough etc.)
For excisional or non-excisional, please also include:
1. Depth of debridement (skin, subcutaneous tissue, fascia, muscle, bone etc)
Use of terms such as suspected, likely, concern for, or probable (associated with a specific diagnosis that is being evaluated, monitored, or treated as if it exists) are acceptable and can be coded in the inpatient setting, when documented at the
time of discharge.
Thank you,
Dorcas CARTER,RN,CCDS
CDI Specialist
Available via [employer] text
Please use your independent medical judgment in providing your response.
[2023-11-30] MEDS: ULTRAM 25 MG PO ×3 (13:24→23:09)
[2023-11-30] MEDS: VISBIOME PO (13:26)
[2023-11-30 15:15] VITALS: BP 110/56
[2023-11-30] MEDS: ZEBETA 5 MG PO (15:27)
[2023-11-30] MEDS: TYLENOL PO (15:29)
[2023-11-30 16:16] VITALS: BP 136/77; PULSE 99
[2023-11-30 16:32] LABS: Glucose - Point of Care 110 mg/dl (70-99)
[2023-11-30] MEDS: LOVENOX 40 MG SC (17:52)
[2023-11-30 21:11] LABS: Glucose - Point of Care 125 mg/dl (70-99)
[2023-11-30 23:00] VITALS: BP 96/48
[2023-12-01] MEDS: ROXICODONE 10 MG PO ×5 (00:03→19:51)
--- NOTE | 2023-12-01 03:05 | DOWNTIME ---
There was a [employer]ial Supervisor Downtime on 12/01/2023 from 0100 to 12/01/2023 at 0300. Downtime documentation of patient's care, including medication administrations, has been reconciled in the electronic record per guidelines. Refer to the
patient's paper chart under the miscellaneous tab to see printed paper medication records and downtime forms.
[2023-12-01] MEDS: ANCEF 10 IV ×3 (05:19→21:22)
[2023-12-01] MEDS: ULTRAM 25 MG PO ×4 (05:19→23:05)
[2023-12-01 07:13] VITALS: BP 104/50
[2023-12-01 07:32] LABS: % Basophils 0.3 % (0-2); % Eosinophils 3.4 % (0-6); % Immature Granulocytes 0.3 % (0-0.5); % Lymphocytes 34.9 % (20.5-51.1); % Monocytes 8.6 % (1.7-9.3); % Neutrophils 52.5 % (42.2-75.2); Absolute Eosinophils 0.2 10^3/uL (0-0.7); Absolute Lymphocytes 2.1 10^3/uL (1.2-3.4); Absolute Monocytes 0.5 10^3/uL (0.1-0.6); Absolute Neutrophils 3.1 10^3/uL (1.4-6.5); Hematocrit 33.2 % (37.0-47.0); Hemoglobin 10.6 g/dL (12.0-16.0); Mean Corp Hgb Conc. 31.9 g/dL (33.0-37.0); Mean Corpuscular Hgb 27.7 pg (27.0-31.0); Mean Corpuscular Volume 86.9 fL (81.0-99.0); Nucleated Red Blood Cells % 0 %; Platelet Count 390 10^3/uL (130-400); Red Blood Cell Count 3.82 10^6/uL (4.20-5.40); Red Cell Dist. Width 13.1 % (11.5-14.5); White Blood Cell Count 5.9 10^3/uL (4.8-10.8)
[2023-12-01 07:59] LABS: Glucose - Point of Care 106 mg/dl (70-99)
[2023-12-01 08:12] LABS: ALT (SGPT) < 10 U/L (0-35); AST (SGOT) 20 U/L (14-36); Albumin 3.3 g/dl (3.5-5.0); Alkaline Phosphatase 71 U/L (38-126); Blood Urea Nitrogen 15 mg/dl (7-17); Calcium 9.2 mg/dl (8.4-10.2); Carbon Dioxide 30 mmol/L (22-30); Chloride 97 mmol/L (98-107); Estimated Creatinine Clearance 85 ml/min; Glucose 94 mg/dl (70-99); Potassium 4.5 mmol/L (3.5-5.1); Sodium 137 mmol/L (135-145); Total Bilirubin 0.3 mg/dl (0.2-1.3); Total Protein 6.4 g/dl (6.3-8.2); eGFR > 60.00
[2023-12-01 08:17] LABS: Free T3 3.66 pg/ml (2.77-5.27); Free T4 1.92 ng/dl (0.78-2.19)
[2023-12-01 08:30] LABS: TSH 0.02 uIU/ml (0.47-4.68)
[2023-12-01] MEDS: TYLENOL 1000 MG PO ×3 (09:18→21:22)
[2023-12-01] MEDS: ROXICODONE 2.5 MG PO (09:36)
--- NOTE | 2023-12-01 10:51 | W.PN.HOSP.TC ---
Today's Communication/Plan
-
worsened pain in R knee without new redness - ortho messaged to reeval
possible neuropathic pain component - Gabapentin started
Meloxicam trial with PPI - close BMP monitoring
Assessment / Plan
Assessment / Plan
63[facility] [place] speaking with PMHx of advanced b/l knee OA had hyaluronic injection into her knees in September 2023 and after the injection into R knee - developed worsening swelling and pain. [place] and was [place] to the hospital.
Found MSSA septic arthritis. Discharge complicated by the need in 6 weeks of IV Abx and [place] recently in [place] medical [place]. 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 - received MA and plan for home infusion vs rehab
A/P:
#R knee septic arthritis related to recent hyaluronic injection
Joint aspiration with MSSA
ID follows, cont Ancef IV for 8 weeks. Offered possible oral Abx if patient wants to self-monitor at home however patient does not want to accept that option,since it is not optimal treatment. cefazolin 2g IV q8h x 6 weeks through 12/24/23 per ID.
patient family will also assist in abx
PT/OT and emphasize need to improve ROM
Pain mgmt; still has pain; would start tramadol scheduled so she doesnt have to use much oxy.
MRI knee - could not tolerate positioning, cancelled since initially patient is improving
stitches has been removed by orthopedics. Patient will follow-up with orthopedics outpatient
Meloxicam, Oxycodone and dilaudid for pain
PT/OT
#new onset DM
Accuchecks, Insulin SS, DM diet
Counseled on yearly dilated eye exam, renal disease check and podiatry - first appointments recommended to be scheduled PATRICK. Patient verbalized understanding
#Hyperthyroidism
Outpatient Endocrinology
Started methimazole as per discussion with Endo
Repeated labs showed appropriate FT3 and FT4 responce
#essential HTN
#Obesity with BMI 33
cont home meds
Advise to decrease calorie intake
#Mild Alk.phos elevation
resolved
With no clinical signs of abd pain
DVT ppx lovenox
GI ppx PPI
Full code
I have spent at least 58min reviewing chart, test results and providing direct patient care
Anticipated Discharge: > 48 hours
Subjective/Interval History
-
Date of Service: December 01, 2023
Objective Data
-
Labs:
Laboratory Results
12/01/23
06:38
WBC 5.9
Hgb 10.6 L
Hct 33.2 L
Plt Count 390
Sodium 137
Potassium 4.5
Chloride 97 L
Carbon Dioxide 30
BUN 15
Creatinine 0.6
Glucose 94
Calcium 9.2
Total Bilirubin 0.3
AST 20
ALT < 10
Alkaline Phosphatase 71
Vital Signs:
Vital Signs
Temp Pulse Resp BP Pulse Ox
98.4 F 75 20 104/50 96
12/01/23 07:13 12/01/23 07:13 12/01/23 07:13 12/01/23 07:13 12/01/23 07:13
I&O
11/30/23 12/01/23 12/02/23
06:59 06:59 06:59
Intake Total 2340 / 2340 600 / 600
Balance 2340 / 2340 600 / 600
Review of Systems
-
History Source: Patient
Musculoskeletal: Reports Joint Pain (R knee) and Other
Physical Exam
-
General: Appears in Distress and Pain
Cardiac: Regular Rhythm
GI: Soft, Nontender and Nondistended
Skin: Warm
Neuro: Awake, Alert, Oriented and AO x 3
Psych: Calm
[2023-12-01] MEDS: NEURONTIN 100 MG PO ×3 (11:37→21:22)
[2023-12-01] MEDS: PROTONIX 40 MG PO (11:38)
[2023-12-01] MEDS: TAPAZOLE 10 MG PO ×2 (11:38→19:46)
[2023-12-01] MEDS: VISBIOME 2 CAP PO (11:38)
[2023-12-01] MEDS: MOBIC 15 MG PO (11:39)
[2023-12-01] MEDS: COLACE 100 MG PO ×2 (11:39→19:46)
[2023-12-01 12:05] LABS: Glucose - Point of Care 167 mg/dl (70-99)
[2023-12-01] MEDS: DILAUDID 0.5 MG IV (12:08)
--- NOTE | 2023-12-01 14:57 | W.PN.UPDATE ---
Update Note
Progress Note Update
Patient seen and examined. Patient complains of pain. Has not been making progress with PT. Afebrile. VSS. RLE: knee incisions healed without erythema. No increased warmth or erythema. No effusion. Calf soft. NVI distally. Limited ROM.
ROM 50-70 degrees. Labs: Blood cultures negative. WBC normal. CRP trending downward. Patient continues on IV antibiotics. Impression: No recurrent findings of worsening septic arthritis. Labs normalizing. Explained with 1 year olds preschool teacher that she
must push past her pain to regain motion and that septic arthritis combined with her osteoarthritis can cause significant ROM issues. No surgical intervention required at this time. Explained multiple times as has been explained in the past that
she needs to work on ROM which she does not seem motivated to perform. Continue current care and finish IV antibiotics.
[2023-12-01 15:24] VITALS: BP 127/62
[2023-12-01] MEDS: LOVENOX 40 MG SC (16:56)
[2023-12-01 16:58] LABS: Glucose - Point of Care 96 mg/dl (70-99)
[2023-12-01] MEDS: MIRALAX 17 GRAMS PO (17:10)
[2023-12-01 23:07] VITALS: BP 93/49
[2023-12-02 03:43] VITALS: BP 119/61
[2023-12-02] MEDS: ULTRAM 25 MG PO ×4 (05:33→23:19)
[2023-12-02] MEDS: ANCEF 10 IV ×3 (05:33→21:03)
[2023-12-02 07:45] VITALS: BP 114/63
[2023-12-02 07:50] LABS: Glucose - Point of Care 104 mg/dl (70-99)
[2023-12-02] MEDS: VISBIOME 2 CAP PO (08:55)
[2023-12-02] MEDS: PROTONIX 40 MG PO (08:55)
[2023-12-02] MEDS: TYLENOL 1000 MG PO ×3 (08:55→21:05)
[2023-12-02] MEDS: MOBIC 15 MG PO (08:55)
[2023-12-02] MEDS: TAPAZOLE 10 MG PO ×2 (08:56→21:03)
[2023-12-02] MEDS: NEURONTIN 100 MG PO ×3 (08:56→21:03)
[2023-12-02] MEDS: COLACE 100 MG PO ×2 (08:56→21:03)
[2023-12-02] MEDS: ROXICODONE 10 MG PO ×2 (10:16→14:34)
--- NOTE | 2023-12-02 11:16 | W.PN.HOSP.TC ---
Today's Communication/Plan
-
CM to cont to work on placement or home infusions
remaining medically stable for d.c
Assessment / Plan
Assessment / Plan
63[facility] [place] speaking with PMHx of advanced b/l knee OA had hyaluronic injection into her knees in September 2023 and after the injection into R knee - developed worsening swelling and pain. [place] and was [place] to the hospital.
Found MSSA septic arthritis. Discharge complicated by the need in 6 weeks of IV Abx and [place] recently [place]. 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 - received MA and plan for home infusion vs rehab
A/P:
#R knee septic arthritis related to recent hyaluronic injection
Joint aspiration with MSSA
ID follows, cont Ancef IV for 8 weeks. Offered possible oral Abx if patient wants to self-monitor at home however patient does not want to accept that option,since it is not optimal treatment. cefazolin 2g IV q8h x 6 weeks through 12/24/23 per ID.
patient family will also assist in abx
PT/OT and emphasize need to improve ROM
Pain mgmt; still has pain; would start tramadol scheduled so she doesnt have to use much oxy.
MRI knee - could not tolerate positioning, cancelled since initially patient is improving
stitches has been removed by orthopedics. Patient will follow-up with orthopedics outpatient. Knee reviewed on 12/01/23 - appropriate healing. PT and increasing ROM advised
Meloxicam, Oxycodone and dilaudid for pain
PT/OT
#new onset DM
Accuchecks, Insulin SS, DM diet
Counseled on yearly dilated eye exam, renal disease check and podiatry - first appointments recommended to be scheduled PATRICK. Patient verbalized understanding
#Hyperthyroidism
Outpatient Endocrinology
Started methimazole as per discussion with Endo
Repeated labs showed appropriate FT3 and FT4 responce
#essential HTN
#Obesity with BMI 33
cont home meds
Advise to decrease calorie intake
#Mild Alk.phos elevation
resolved
With no clinical signs of abd pain
DVT ppx lovenox
GI ppx PPI
Full code
I have spent at least 58min reviewing chart, test results and providing direct patient care
Anticipated Discharge: > 48 hours
Subjective/Interval History
-
Date of Service: December 02, 2023
Objective Data
-
Vital Signs:
Vital Signs
Temp Pulse Resp BP Pulse Ox
98.2 F 83 16 114/63 95
12/02/23 07:45 12/02/23 07:45 12/02/23 07:45 12/02/23 07:45 12/02/23 07:45
I&O
12/01/23 12/02/23 12/03/23
06:59 06:59 06:59
Intake Total 600 / 600 960 / 960
Output Total 100 / 100
Balance 600 / 600 860 / 860
Review of Systems
-
History Source: Patient
All other systems: Reviewed and negative
Physical Exam
-
General: No Apparent Distress
HEENT: Normocephalic
Respiratory: Clear to Auscultation
Cardiac: Regular Rhythm
GI: Soft, Nontender and Nondistended
Musculoskeletal: Other (R knee swelling without redness)
[2023-12-02 11:51] LABS: Glucose - Point of Care 108 mg/dl (70-99)
[2023-12-02 15:45] VITALS: BP 107/54
[2023-12-02 16:08] LABS: Glucose - Point of Care 88 mg/dl (70-99)
[2023-12-02] MEDS: LOVENOX 40 MG SC (17:21)
[2023-12-02] MEDS: DILAUDID 0.5 MG IV (21:04)
[2023-12-02 21:09] LABS: Glucose - Point of Care 113 mg/dl (70-99)
[2023-12-02 23:40] VITALS: BP 115/58
[2023-12-03] MEDS: ULTRAM 25 MG PO ×4 (05:09→23:46)
[2023-12-03] MEDS: ANCEF 10 IV ×3 (05:09→21:07)
[2023-12-03 07:28] VITALS: BP 123/68
[2023-12-03 07:54] LABS: Glucose - Point of Care 96 mg/dl (70-99)
[2023-12-03] MEDS: TAPAZOLE 10 MG PO ×2 (09:18→21:08)
[2023-12-03] MEDS: MOBIC 15 MG PO (09:18)
[2023-12-03] MEDS: COLACE 100 MG PO ×2 (09:18→21:08)
[2023-12-03] MEDS: VISBIOME 2 CAP PO (09:18)
[2023-12-03] MEDS: PROTONIX 40 MG PO (09:18)
[2023-12-03] MEDS: NEURONTIN 100 MG PO ×3 (09:18→21:08)
[2023-12-03] MEDS: ROXICODONE 10 MG PO ×2 (09:19→21:07)
[2023-12-03] MEDS: TYLENOL 1000 MG PO ×3 (09:19→21:07)
--- NOTE | 2023-12-03 11:11 | VATNOTE ---
12/02 Spoke with primary RN regarding home infusion. Company is not yet determined. pending midline vs picc placement on home infusion company given patient only needs abx till 12/23.
--- NOTE | 2023-12-03 11:35 | W.PN.HOSP.TC ---
Today's Communication/Plan
-
picc today
CM for home infusions
Daughter did not milk pickup driver call
Assessment / Plan
Assessment / Plan
63[facility] [place] [facility] [place] speaking with PMHx of advanced b/l knee OA had hyaluronic injection into her knees in September 2023 and after the injection into R knee - developed worsening swelling and pain. [place] to [place] hospital.
Found MSSA septic arthritis. Discharge complicated by the need in 6 weeks of IV Abx and [place] recently in [place] medical [place]. 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 - received MA and plan for home infusion vs rehab, however
apparently insurance does not cover reahb and family reluctant to help with home Abx
A/P:
#R knee septic arthritis related to recent hyaluronic injection
Joint aspiration with MSSA
ID follows, cont Ancef IV for 8 weeks. Offered possible oral Abx if patient wants to self-monitor at home however patient does not want to accept that option,since it is not optimal treatment. cefazolin 2g IV q8h x 6 weeks through 12/24/23 per ID.
patient family will also assist in abx
PT/OT and emphasize need to improve ROM
Pain mgmt; still has pain; would start tramadol scheduled so she doesnt have to use much oxy.
MRI knee - could not tolerate positioning, cancelled since initially patient is improving
stitches has been removed by orthopedics. Patient will follow-up with orthopedics outpatient. Knee reviewed on 12/01/23 - appropriate healing. PT and increasing ROM advised
Meloxicam, Oxycodone and dilaudid for pain
PT/OT
#new onset DM
Accuchecks, Insulin SS, DM diet
Counseled on yearly dilated eye exam, renal disease check and podiatry - first appointments recommended to be scheduled PATRICK. Patient verbalized understanding
#Hyperthyroidism
Outpatient Endocrinology
Started methimazole as per discussion with Endo
Repeated labs showed appropriate FT3 and FT4 response
#essential HTN
#Obesity with BMI 33
cont home meds
Advise to decrease calorie intake
#Mild Alk.phos elevation
resolved
With no clinical signs of abd pain
DVT ppx lovenox
GI ppx PPI
Full code
I have spent at least 58min reviewing chart, test results and providing direct patient care
Anticipated Discharge: > 48 hours
Subjective/Interval History
-
Date of Service: December 03, 2023
Objective Data
-
Vital Signs:
Vital Signs
Temp Pulse Resp BP Pulse Ox
98.5 F 91 20 123/68 98
12/03/23 07:28 12/03/23 07:28 12/03/23 07:28 12/03/23 07:28 12/03/23 08:30
I&O
12/02/23 12/03/23 12/04/23
06:59 06:59 06:59
Intake Total 960 / 960 240 / 240
Output Total 100 / 100
Balance 860 / 860 240 / 240
Review of Systems
-
History Source: Patient
All other systems: Reviewed and negative
Physical Exam
-
General: No Apparent Distress
HEENT: Normocephalic
GI: Soft, Nontender and Nondistended
Neuro: Awake, Alert, Oriented and AO x 3
[2023-12-03 12:03] LABS: Glucose - Point of Care 104 mg/dl (70-99)
--- NOTE | 2023-12-03 12:21 | CM ---
CM spoke with Janine's daughter who is preparing for discharge to home. [facility] will provide RN and PT; they can start care on 12/05/2023. PICC is being placed today; will send information regarding PICC to [facility]
when report is available. [facility] will deliver medication to home.
Janine's daughter is aware that w/c van transport will be arranged for discharge and cost of transport will need to be paid via phone; CM will arrange that on Wednesday am and make daughter aware of cost and phone number to call once arranged.
Plan: Discharge to home with home infusion; medication will be delivered by [facility]. DME for home will need to be discussed with PT/OT.
[2023-12-03] MEDS: ZOFRAN 4 MG IV (13:20)
--- NOTE | 2023-12-03 14:51 | VATNOTE ---
12/02 Patient ordered ABX till 12/23. home infusion company OK with midline. RT SL 4FR MIDLINE placed. TCL 16cm ECL0 UAC 34cm. Procedure done under sterile technique. to be redressed tomorrow.
[2023-12-03 15:28] VITALS: BP 113/56
[2023-12-03 16:49] LABS: Glucose - Point of Care 80 mg/dl (70-99)
[2023-12-03] MEDS: LOVENOX 40 MG SC (17:53)
[2023-12-03 21:21] LABS: Glucose - Point of Care 113 mg/dl (70-99)
[2023-12-03 23:34] VITALS: BP 115/58
[2023-12-04] MEDS: ANCEF 10 IV ×3 (05:24→21:33)
[2023-12-04] MEDS: ULTRAM 25 MG PO ×4 (05:24→23:02)
[2023-12-04 08:09] LABS: Glucose - Point of Care 94 mg/dl (70-99)
[2023-12-04 08:25] VITALS: BP 127/64
[2023-12-04] MEDS: TYLENOL 1000 MG PO ×3 (09:40→21:33)
[2023-12-04] MEDS: PROTONIX 40 MG PO (09:40)
[2023-12-04] MEDS: COLACE 100 MG PO ×2 (09:41→21:33)
[2023-12-04] MEDS: TAPAZOLE 10 MG PO ×2 (09:41→21:33)
[2023-12-04] MEDS: NEURONTIN 100 MG PO ×3 (09:41→21:33)
[2023-12-04] MEDS: VISBIOME 2 CAP PO (09:41)
[2023-12-04] MEDS: ROXICODONE 10 MG PO ×3 (09:43→18:18)
[2023-12-04] MEDS: MOBIC PO (09:52)
--- NOTE | 2023-12-04 12:07 | W.PN.HOSP.TC ---
Today's Communication/Plan
-
DC in AM if CM confirmed home infusion
Assessment / Plan
Assessment / Plan
63yo F from [place], [place] speaking with PMHx of advanced b/l knee OA had hyaluronic injection into her knees in September 2023 and after the injection into R knee - developed worsening swelling and pain. [place] to [place] hospital.
Found MSSA septic arthritis. Discharge complicated by the need in 6 weeks of IV Abx and [place] just recently in [place] medical [place]. 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 - received MA and plan for home infusion vs rehab, however
apparently insurance does not cover rehab. Family agrteed for home Abx infusion that set to start on 12/05/23 as pr CM
A/P:
#R knee septic arthritis related to recent hyaluronic injection
Joint aspiration with MSSA
ID follows, cont Ancef IV for 8 weeks. Offered possible oral Abx if patient wants to self-monitor at home however patient does not want to accept that option,since it is not optimal treatment. cefazolin 2g IV q8h x 6 weeks through 12/24/23 per ID.
patient family will also assist in abx
PT/OT and emphasize need to improve ROM
Pain mgmt; still has pain; would start tramadol scheduled so she doesnt have to use much oxy.
MRI knee - could not tolerate positioning, cancelled since initially patient is improving
stitches has been removed by orthopedics. Patient will follow-up with orthopedics outpatient. Knee reviewed on 12/01/23 - appropriate healing. PT and increasing ROM advised
With Hx of PUD - advised Voltaren upon d/c, Oxycodone and dilaudid for pain
PT/OT
#new onset DM
Accuchecks, Insulin SS, DM diet
Counseled on yearly dilated eye exam, renal disease check and podiatry - first appointments recommended to be scheduled PATRICK. Patient verbalized understanding
#Hyperthyroidism
Outpatient Endocrinology
Started methimazole as per discussion with Endo
Repeated labs showed appropriate FT3 and FT4 response
#essential HTN
#Obesity with BMI 33
cont home meds
Advise to decrease calorie intake
#Mild Alk.phos elevation
resolved
With no clinical signs of abd pain
DVT ppx lovenox
GI ppx PPI
Full code
I have spent at least 58min reviewing chart, test results and providing direct patient care
Anticipated Discharge: Within 24 hours
Subjective/Interval History
-
Date of Service: December 04, 2023
Objective Data
-
Vital Signs:
Vital Signs
Temp Pulse Resp BP Pulse Ox
97.9 F 90 18 127/64 95
12/04/23 08:25 12/04/23 08:25 12/04/23 08:25 12/04/23 08:25 12/04/23 08:25
I&O
12/03/23 12/04/23 12/05/23
06:59 06:59 06:59
Intake Total 240 / 240 1160 / 1160
Balance 240 / 240 1160 / 1160
Review of Systems
-
History Source: Patient
All other systems: Reviewed and negative
Physical Exam
-
General: No Apparent Distress
HEENT: Normocephalic
Respiratory: Clear to Auscultation
GI: Soft, Nontender and Nondistended
Skin: Warm
Neuro: Awake, Alert, Oriented and AO x 3
[2023-12-04 12:19] LABS: Glucose - Point of Care 104 mg/dl (70-99)
--- NOTE | 2023-12-04 15:06 | CM ---
Addendum entered by Lin Vargas RN 12/04/23 15:24:
TT Update to Dr Prescott- cannot be ready for d/c until Wednesday earliest due to the details provided below.
Original Note:
[place] speaking patient with Dx R knee septic arthritis. Receiving IV cefazolin 5am-1pm-9pm. PT recommends skilled rehab. OT; skilled vs home.
Spoke with Dr Prescott who requested confirmation patient will be ready for d/c tomorrow.
Spoke with [facility]; they have not cleared the patient for her Medicaid and will not be able to do that until Wednesday. She is aware of the Medicaid recipient ID # [id number]. Also they cannot deliver med/supplies until Wednesday as it
wasn't prearranged yesterday. Discussed that the patient will need a teaching visit on Wednesday by [facility] nurse here, then she can go home if daughter is comfortable administering, otherwise the [facility] nurse can see the patient at home
on Wednesday. Per Linda, [facility] will not be able to deliver to home in time for the 1pm dose on Wednesday.
Spoke with [facility] (ph [phone]); their nurse was scheduled to see the patient tomorrow. As patient is not ready for d/c home with home infusion, she will cancel the nurse for tomorrow. Informed her patient may be able to go
home Wednesday or depending if [facility] nurse does teaching visit here Wednesday and if daughter is comfortable administering at home after that, or if first teaching visit will be at home on . They have PT available but do not have OT.
Daughter Nash is aware; she expressed some upset as she was hoping for d/c tomorrow when she is off work. Asked if there is another family member that could do teaching visit here Wednesday if needed and she is unsure. She will contact on Wednesday
12/05.
Plan contact [facility] 12/05 re; financial clearance, delivery and teaching visit.
Plan contact [facility] 12/05 re; coordination of nurse for teaching visit.
Plan home with [facility] for IV cefazolin, with [facility] for nurse and PT.
[2023-12-04 16:43] VITALS: BP 106/60
[2023-12-04 17:06] LABS: Glucose - Point of Care 101 mg/dl (70-99)
[2023-12-04] MEDS: LOVENOX 40 MG SC (17:11)
[2023-12-04 21:27] LABS: Glucose - Point of Care 114 mg/dl (70-99)
[2023-12-04 23:30] VITALS: BP 92/51
[2023-12-05 03:45] VITALS: BP 102/65
[2023-12-05] MEDS: ULTRAM 25 MG PO ×3 (05:39→17:25)
[2023-12-05] MEDS: ANCEF 10 IV ×3 (05:40→21:38)
[2023-12-05 07:00] VITALS: BP 128/62
[2023-12-05 07:58] LABS: Glucose - Point of Care 108 mg/dl (70-99)
[2023-12-05] MEDS: PROTONIX 40 MG PO (08:01)
[2023-12-05] MEDS: TYLENOL 1000 MG PO ×3 (08:01→21:38)
[2023-12-05] MEDS: VISBIOME 2 CAP PO (08:02)
[2023-12-05] MEDS: TAPAZOLE 10 MG PO ×2 (08:02→22:01)
[2023-12-05] MEDS: COLACE 100 MG PO ×2 (08:02→22:00)
[2023-12-05] MEDS: NEURONTIN 100 MG PO ×3 (08:02→21:38)
[2023-12-05] MEDS: ROXICODONE 10 MG PO ×4 (08:13→22:01)
[2023-12-05 11:42] LABS: Glucose - Point of Care 121 mg/dl (70-99)
--- NOTE | 2023-12-05 12:48 | W.PN.HOSP.TC ---
Today's Communication/Plan
-
cont Abx
Assessment / Plan
Assessment / Plan
63yo F from [place], [place] speaking with PMHx of advanced b/l knee OA had hyaluronic injection into her knees in September 2023 and after the injection into R knee - developed worsening swelling and pain. [place] to [place].
Found MSSA septic arthritis. Discharge complicated by the need in 6 weeks of IV Abx and [place] recently in [place] medical [place]. 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 - received MA and plan for home infusion vs rehab, however
apparently insurance does not cover rehab. Family agreed for home Abx infusion teaching will be done inpatient on 12/06/23 and patient will be able to be d/c. If teaching not successful in the hospital - visiting RN can start on 12/07/23 at home with
teaching
A/P:
#R knee septic arthritis related to recent hyaluronic injection
Joint aspiration with MSSA
ID follows, cont Ancef IV for 8 weeks. Offered possible oral Abx if patient wants to self-monitor at home however patient does not want to accept that option,since it is not optimal treatment. cefazolin 2g IV q8h x 6 weeks through 12/24/23 per ID.
patient family will also assist in abx
PT/OT and emphasize need to improve ROM
Pain mgmt; still has pain; would start tramadol scheduled so she doesn't have to use much oxy.
MRI knee - could not tolerate positioning, cancelled since initially patient is improving
stitches has been removed by orthopedics. Patient will follow-up with orthopedics outpatient. Knee reviewed on 12/01/23 - appropriate healing. PT and increasing ROM advised
With Hx of PUD - advised Voltaren upon d/c, Oxycodone and dilaudid for pain
PT/OT
Rx for rolling walker, bedside commode and WC are left in papaer chart
#new onset DM
Accuchecks, Insulin SS, DM diet
Counseled on yearly dilated eye exam, renal disease check and podiatry - first appointments recommended to be scheduled PATRICK. Patient verbalized understanding
#Hyperthyroidism
Outpatient Endocrinology
Started methimazole as per discussion with Endo
Repeated labs showed appropriate FT3 and FT4 response
#essential HTN
#Obesity with BMI 33
cont home meds
Advise to decrease calorie intake
#Mild Alk.phos elevation
resolved
With no clinical signs of abd pain
DVT ppx lovenox
GI ppx PPI
Full code
I have spent at least 58min reviewing chart, test results and providing direct patient care
Anticipated Discharge: 24 - 48 hours
Subjective/Interval History
-
Date of Service: December 05, 2023
Objective Data
-
Vital Signs:
Vital Signs
Temp Pulse Resp BP Pulse Ox
98.1 F 92 16 128/62 96
12/05/23 07:00 12/05/23 07:00 12/05/23 07:00 12/05/23 07:00 12/05/23 07:00
I&O
12/04/23 12/05/23 12/06/23
06:59 06:59 06:59
Intake Total 1160 / 1160 1040 / 1040
Balance 1160 / 1160 1040 / 1040
Review of Systems
-
History Source: Patient
All other systems: Reviewed and negative
Musculoskeletal: Reports Other (R knee pain)
Physical Exam
-
HEENT: Normocephalic
Respiratory: Clear to Auscultation
Cardiac: Regular Rhythm
Musculoskeletal: No Clubbing and No Cyanosis
Skin: Warm
Neuro: Awake, Alert, Oriented and AO x 3
Psych: Calm
[2023-12-05 15:00] VITALS: BP 114/63
[2023-12-05 16:47] LABS: Glucose - Point of Care 105 mg/dl (70-99)
[2023-12-05] MEDS: LOVENOX 40 MG SC (17:17)
[2023-12-05 21:33] LABS: Glucose - Point of Care 94 mg/dl (70-99)
[2023-12-05 23:30] VITALS: BP 97/54
[2023-12-06] MEDS: ULTRAM 25 MG PO ×5 (01:17→23:36)
[2023-12-06] MEDS: ROXICODONE 10 MG PO ×5 (02:09→23:39)
[2023-12-06] MEDS: DILAUDID 0.5 MG IV (04:43)
[2023-12-06] MEDS: ANCEF 10 IV ×3 (06:08→22:01)
[2023-12-06 07:30] VITALS: BP 108/63
[2023-12-06 07:38] LABS: Glucose - Point of Care 88 mg/dl (70-99)
[2023-12-06 08:06] LABS: Hematocrit 32.2 % (37.0-47.0); Hemoglobin 10.2 g/dL (12.0-16.0); Mean Corp Hgb Conc. 31.7 g/dL (33.0-37.0); Mean Corpuscular Hgb 27.5 pg (27.0-31.0); Mean Corpuscular Volume 86.8 fL (81.0-99.0); Platelet Count 365 10^3/uL (130-400); Red Blood Cell Count 3.71 10^6/uL (4.20-5.40); Red Cell Dist. Width 13.5 % (11.5-14.5); White Blood Cell Count 6.8 10^3/uL (4.8-10.8)
[2023-12-06] MEDS: VISBIOME 2 CAP PO (08:57)
[2023-12-06] MEDS: COLACE 100 MG PO ×2 (08:57→19:37)
[2023-12-06] MEDS: TYLENOL 1000 MG PO ×3 (08:58→22:00)
[2023-12-06] MEDS: NEURONTIN 100 MG PO ×3 (08:58→22:00)
[2023-12-06] MEDS: PROTONIX 40 MG PO (08:58)
[2023-12-06] MEDS: TAPAZOLE 10 MG PO ×2 (08:58→19:39)
[2023-12-06 09:20] LABS: ALT (SGPT) 18 U/L (0-35); AST (SGOT) 52 U/L (14-36); Albumin 3.4 g/dl (3.5-5.0); Alkaline Phosphatase 72 U/L (38-126); Blood Urea Nitrogen 14 mg/dl (7-17); Calcium 9.5 mg/dl (8.4-10.2); Carbon Dioxide 21 mmol/L (22-30); Chloride 101 mmol/L (98-107); Estimated Creatinine Clearance 85 ml/min; Glucose 82 mg/dl (70-99); Sodium 138 mmol/L (135-145); Total Bilirubin 0.2 mg/dl (0.2-1.3); Total Protein 6.4 g/dl (6.3-8.2); eGFR > 60.00
--- NOTE | 2023-12-06 09:36 | PTCARENOTE ---
pt aaox3. used language line to communicate. states 7/10 pain in right knee. states it has hurt all night after she tried to go to the commode. pain med given as ordered.
[2023-12-06 09:40] LABS: Potassium 4.7 mmol/L (3.5-5.1)
--- NOTE | 2023-12-06 10:57 | W.PN.ID1 ---
Date of Service
Date of Service: December 06, 2023
Today's Communication
- DC home on IV abx when finalized set up.
Assessment / Plan
# [place] right knee MSSA septic arthritis s/p washout 11/12/23. OR cx MSSA
- CRP trending down: 159 -> 24-> 13
- Continue cefazolin 2g IV q8h x 6 weeks through 12/24/23.
- Follow weekly CBC, CMP, CRP q Wednesday
- Midline placement in place
-Medical Assistance approved 11/26/23. SNF not covered.
- DC home on IV abx when finalized set up.
# New onset DM
#HTN
# Hyperthyroidism
Chief Complaint
-: Other (septic knee)
Subjective / Review of Systems
Some right leg pain.
Vital Signs / Physical Exam
Vital Signs
Vital Signs
Temp Pulse Resp BP Pulse Ox
98.7 F 92 18 108/63 96
12/06/23 07:30 12/06/23 07:30 12/06/23 07:30 12/06/23 07:30 12/06/23 07:30
Physical Exam
Constitutional: No Acute Distress and Comfortable
Pulmonary: Clear
Gastrointestinal: Soft, Non Tender and Non Distended
Musculoskeletal: Other (right knee without erythema/effusion)
Lines: Other (RUE midline intact)
Objective Data
Lab Data
Lab Results
12/06/23 06:31
12/06/23 06:31
ESR 96 mm/hour (0-20) H 11/12/23 10:49
Estimated Creat Clear 85 ml/min 12/06/23 06:31
Total Bilirubin 0.2 mg/dl (0.2-1.3) 12/06/23 06:31
AST 52 U/L (14-36) H 12/06/23 06:31
ALT 18 U/L (0-35) 12/06/23 06:31
Alkaline Phosphatase 72 U/L (38-126) 12/06/23 06:31
C-Reactive Protein 13.30 mg/L (0.0-10.00) H 12/06/23 06:31
Most recent labs reviewed.
Micro Results:
11/15/23 12:13 Blood Culture - Final
Blood/Venous No Growth - Final Report
11/15/23 11:46 Blood Culture - Final
Blood/Venous No Growth - Final Report
11/12/23 15:51 Anaerobic Culture - Final
Knee - Right NO ANAEROBES ISOLATED
11/12/23 15:51 Wound Culture - Final
Knee - Right S aureus-Methicillin Sensitive
Gram Stain - Final
--- NOTE | 2023-12-06 11:11 | PTCARENOTE ---
pt states pain has improved does not want any pain med now. oob to bsc then chair with walker.
[2023-12-06 11:46] VITALS: BP 124/67; BP 128/79; PULSE 87; O2SAT 99
[2023-12-06 11:52] LABS: Glucose - Point of Care 111 mg/dl (70-99)
--- NOTE | 2023-12-06 12:21 | W.PN.HOSP.TC ---
Today's Communication/Plan
-
Monitor vital signs
see plan
Per clinical case manager, infusion company and home health agency has been set up. Plan for medication to be delivered at 4pm this afternoon by [facility] and home health will be there between 4pm-5pm for teaching
dc today
Pain control
Called daughter, left voicemail
Time of discharge 38 minutes
Assessment / Plan
Assessment / Plan
63[place] speaking with PMHx of advanced b/l knee OA had hyaluronic injection into her knees in September 2023 and after the injection into R knee - developed worsening swelling and pain. [place] and was [place] to the hospital.
Found MSSA septic arthritis. Discharge complicated by the need in 6 weeks of IV Abx and patient just recently in [place] medical [place]. 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 - received MA and plan for home infusion vs rehab, however
apparently insurance does not cover rehab. Family agreed for home Abx infusion teaching will be done inpatient on 12/06/23 and patient will be able to be d/c. If teaching not successful in the hospital - visiting RN can start on 12/07/23 at home with
teaching
A/P:
#R knee septic arthritis related to recent hyaluronic injection
Joint aspiration with MSSA
ID follows, cont Ancef IV for 8 weeks. Offered possible oral Abx if patient wants to self-monitor at home however patient does not want to accept that option,since it is not optimal treatment. cefazolin 2g IV q8h x 6 weeks through 12/24/23 per ID.
patient family will also assist in abx
Continue cefazolin 2g IV q8h x 6 weeks through 12/24/23.
- Follow weekly CBC, CMP, CRP q Wednesday per ID
PT/OT and emphasize need to improve ROM
Pain mgmt; still has pain; would start tramadol scheduled so she doesn't have to use much oxy.
MRI knee - could not tolerate positioning, cancelled since initially patient is improving
stitches has been removed by orthopedics. Patient will follow-up with orthopedics outpatient. Knee reviewed on 12/01/23 - appropriate healing. PT and increasing ROM advised
With Hx of PUD - advised Voltaren upon d/c, Oxycodone and dilaudid for pain
PT/OT
Rx for rolling walker, bedside commode and WC are left in paper chart
#new onset DM
Accuchecks, Insulin SS, DM diet
Counseled on yearly dilated eye exam, renal disease check and podiatry - first appointments recommended to be scheduled PATRICK. Patient verbalized understanding
#Hyperthyroidism
Outpatient Endocrinology
Started methimazole as per discussion with Endo
Repeated labs showed appropriate FT3 and FT4 response
#essential HTN
#Obesity with BMI 33
cont home meds
Advise to decrease calorie intake
#Mild Alk.phos elevation
resolved
With no clinical signs of abd pain
DVT ppx lovenox
GI ppx PPI
Full code
HEENT: Normocephalic
Respiratory: Clear to Auscultation
Cardiac: Regular Rhythm
Musculoskeletal: No Clubbing and No Cyanosis
Neuro: Awake, Alert, Oriented and AO x 3
Psych: Calm
Anticipated Discharge: Today
Subjective/Interval History
-
Date of Service: December 06, 2023
has some pain
Objective Data
-
Labs:
Laboratory Results
12/06/23
06:31
WBC 6.8
Hgb 10.2 L
Hct 32.2 L
Plt Count 365
Sodium 138
Potassium 4.7
Chloride 101
Carbon Dioxide 21 L
BUN 14
Creatinine 0.5 L
Glucose 82
Calcium 9.5
Total Bilirubin 0.2
AST 52 H
ALT 18
Alkaline Phosphatase 72
Vital Signs:
Vital Signs
Temp Pulse Resp BP Pulse Ox
98.7 F 92 18 108/63 96
12/06/23 07:30 12/06/23 07:30 12/06/23 07:30 12/06/23 07:30 12/06/23 07:30
I&O
12/05/23 12/06/23 12/07/23
06:59 06:59 06:59
Intake Total 1040 / 1040 325 / 325
Balance 1040 / 1040 325 / 325
--- NOTE | 2023-12-06 12:35 | W.DCSUMMARY ---
Discharge Summary
Discharge Data
Date of Admission: 11/12/23
Date of Discharge: 12/08/23
-
Pending Results: No
Hospital Course
63-year-old female with past medical history of advanced bilateral osteoarthritis with a recent hyaluronic injection at [facility] came to the hospital with right knee swelling and pain. Patient was seen by orthopedics. Her joint aspiration was
consistent with MSSA. She was also seen by infectious disease throughout hospitalization and was started on IV antibiotics. She will instructed to continue IV antibiotics for at least 6 weeks through 12/24/2023. She was also followed up by
physical therapy who recommended SNF initially. Patient hospital course was prolonged due to her not having any insurance so with skilled nursing case manager help insurance for established. On this hospitalization she was also diagnosed with hypothyroidism and
diabetes. She was instructed to continue managing her diabetes with diet and exercise and to follow-up with primary care provider outpatient. For her hyperthyroidism she will instructed to follow-up with endocrinology outpatient. After speaking
with the associate professor of biostatistics she was started on methimazole twice daily. Eventually family decided to take patient home. On discharge she was instructed to follow-up with all her physicians outpatient.
Discharge Plan
-
Patient Disposition: Home with Home Care
Discharge Diagnosis/Procedures: Right knee septic arthritis
New onset diabetes mellitus
Hyperthyroidism
Essential hypertension
Diet: As tolerated and Diabetic, Carb Controlled
Activity: As tolerated
Driving Restrictions: As prior to admission
Bathing Restrictions: None
Blood Work: TSH with reflex to free T4 in 2 weeks
Activity Restrictions/Additional Instructions:
1. Continue cefazolin 2g IV q8h x 6 weeks through 12/24/23.
2. Follow weekly CBC, CMP, CRP while on cefazolin.
Referrals:
Buddy Patterson MD [Active] - in one to two weeks
Ariana Eubanks MD [Consulting Staff] - in less than 1 week (for new diabetes and hyperthyroidism)
NONE,* [Family Provider] - in less than 1 week
Lalita Up MD [Active] - in one to two days
Prescriptions:
New
polyethylene glycol 3350 [HealthyLax] 17 gram Powder In Packet
17 g PO DAILYPRN PRN (Reason: constipation) Qty: 0 0RF
tramadol 50 mg Tablet
25 mg PO Q6H 7 Days Qty: 14 0RF
acetaminophen [Tylenol Extra Strength] 500 mg Tablet
1,000 mg PO TID Qty: 90 0RF
cefazolin 10 gram Recon Soln
2 g IV Q8H Qty: 0 0RF
pantoprazole 40 mg Tablet,Delayed Release (Dr/Ec)
40 mg PO DAILY Qty: 30 0RF
methimazole 5 mg Tablet
10 mg PO BID Qty: 60 0RF
docusate sodium 100 mg Capsule
100 mg PO BID Qty: 0 0RF
gabapentin 100 mg Capsule
100 mg PO TID Qty: 90 0RF
oxycodone 10 mg Tablet
10 mg PO Q4HPRN PRN (Reason: moderate-severe pain) Qty: 20 0RF
Lactobac/Bifidobac [Visbiome]
2 cap PO DAILY Qty: 0 0RF
diclofenac sodium [Voltaren Arthritis Pain] 1 % gel
2 g topical QID Qty: 100 0RF
Rx Instructions:
apply to right knee
Continued
bisoprolol fumarate 5 mg Tablet
5 mg PO DAILY
Lercanidipine 10 Mg
10 mg PO QPM
Thrombopol 75 Mg
75 mg PO HS
Discontinued
ibuprofen 200 mg Tablet
200 mg PO Q6H PRN (Reason: mild pain)
hydrocodone-acetaminophen 5-300 mg tablet
1 tab PO Q8H PRN (Reason: severe Pain)
Discharge Orders:
Discharge Patient (As Directed); Ordered 12/08/23
Ordered By: Quan Martinez
Discharge Date and Time
Discharge Date/Time: 12/08/23 12:49
Print Language: FAROESE
[2023-12-06] MEDS: ZOFRAN 4 MG IV (13:32)
--- NOTE | 2023-12-06 13:36 | CM ---
Addendum entered by Ariana Hagen 12/06/23 15:12:
[facility] contacted me to advise that they are not able to deliver the medication today due to a computer issue with the [place] office. [facility] notified. Ashly from [facility] had notified the daughter prior to speaking to me.
called Janine's daughter to update her about the commode and wheelchair; commode will be in the room; therapy to deliver. w/c will be delivered by [facility] to the home tomorrow.
Plan: Discharge [facility] and PT. [facility] will deliver the medication to the home when computer issues are resolved and coverage is confirmed for IV abx at home.
Original Note:
Janine will be discharged to home today with [facility] for RN and PT; [facility] will deliver the ABX to home between 4 and 5pm today. Daughter was contacted by [facility] and is aware of the plan for delivery.
AURROA spoke with Janine's daughter. She advised Rx was left by MD for RW, Commode and W/C. PT will provide the RW and Commode. [facility] was contacted for the W/C; they will deliver the W/C tomorrow to patient's home.
W/C van to be arranged for discharge to home. Requesting 3PM excelsior picker to ensure she is home in time for ABX delivery and teaching.
Plan: Discharge to home today with [facility] for RN and PT. [facility] will deliver the medication to the home.
[facility]
[2023-12-06 15:44] VITALS: BP 119/76
[2023-12-06 16:40] LABS: Glucose - Point of Care 105 mg/dl (70-99)
[2023-12-06] MEDS: LOVENOX 40 MG SC (17:58)
[2023-12-06] MEDS: DILAUDID IV (19:39)
[2023-12-06 21:25] LABS: Glucose - Point of Care 131 mg/dl (70-99)
[2023-12-06 23:23] VITALS: BP 117/57
[2023-12-07] MEDS: ROXICODONE 10 MG PO ×4 (05:44→20:19)
[2023-12-07] MEDS: ULTRAM 25 MG PO ×3 (05:44→18:21)
[2023-12-07] MEDS: ANCEF 10 IV ×3 (05:45→22:00)
[2023-12-07 07:25] VITALS: BP 108/59
[2023-12-07] MEDS: DILAUDID IV (08:43)
[2023-12-07] MEDS: TAPAZOLE 10 MG PO ×2 (08:46→20:20)
[2023-12-07] MEDS: TYLENOL 1000 MG PO ×3 (08:46→21:58)
[2023-12-07] MEDS: NEURONTIN 100 MG PO ×3 (08:46→21:58)
[2023-12-07] MEDS: PROTONIX 40 MG PO (08:46)
[2023-12-07] MEDS: COLACE 100 MG PO ×2 (08:46→20:20)
[2023-12-07] MEDS: VISBIOME 2 CAP PO (08:46)
[2023-12-07 08:52] LABS: Glucose - Point of Care 125 mg/dl (70-99)
--- NOTE | 2023-12-07 10:32 | CM ---
Addendum entered by Ariana Hagen 12/07/23 11:52:
I spoke with Kenia at [facility] who confirmed that Janine is still in their system. They had a cancellation and will be able to do start of care tomorrow. CM awaiting confirmation from [facility] regarding claim approval from [place].
Original Note:
AURORA contacted [facility] (Phone number: [phone]) to check if availability for RN to do start of care has become available prior to this coming Wednesday. Per Angela, she cannot find the patient in their system. Concern for case being
cancelled. Angela will speak with her cold mill supervisor and call back with an update.
CM to continue to follow, awaiting update.
--- NOTE | 2023-12-07 11:23 | W.PN.HOSP.TC ---
Addendum entered and electronically signed by Quan Martinez MD 12/07/23 12:55:
needs wheelchair at home to complete her daily activities as well as why she needs elevated leg rests.
Original Note:
Today's Communication/Plan
-
monitor vitals
see plan
yesterday per CM, abx werent able to be delivered so dc was cancelled
dc today if abx and nursing set up; some delay per CM
pain control
Assessment / Plan
Assessment / Plan
63yo F from [place], [place] speaking with PMHx of advanced b/l knee OA had hyaluronic injection into her knees in September 2023 and after the injection into R knee - developed worsening swelling and pain. [place] to [place] hospital.
Found MSSA septic arthritis. Discharge complicated by the need in 6 weeks of IV Abx and [place] recently in [place] medical [place]. 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 - received MA and plan for home infusion vs rehab, however
apparently insurance does not cover rehab. Family agreed for home Abx infusion teaching will be done inpatient on 12/06/23 and patient will be able to be d/c. If teaching not successful in the hospital - visiting RN can start on 12/07/23 at home with
teaching
A/P:
#R knee septic arthritis related to recent hyaluronic injection
Joint aspiration with MSSA
ID follows, cont Ancef IV for 8 weeks. Offered possible oral Abx if patient wants to self-monitor at home however patient does not want to accept that option,since it is not optimal treatment. cefazolin 2g IV q8h x 6 weeks through 12/24/23 per ID.
patient family will also assist in abx
Continue cefazolin 2g IV q8h x 6 weeks through 12/24/23.
- Follow weekly CBC, CMP, CRP q Wednesday per ID
PT/OT and emphasize need to improve ROM
Pain mgmt; still has pain; would start tramadol scheduled so she doesn't have to use much oxy.
MRI knee - could not tolerate positioning, cancelled since initially patient is improving
stitches has been removed by orthopedics. Patient will follow-up with orthopedics outpatient. Knee reviewed on 12/01/23 - appropriate healing. PT and increasing ROM advised
With Hx of PUD - advised Voltaren upon d/c, Oxycodone and dilaudid for pain
PT/OT
Rx for rolling walker, bedside commode and WC are left in paper chart
#new onset DM
Accuchecks, Insulin SS, DM diet
Counseled on yearly dilated eye exam, renal disease check and podiatry - first appointments recommended to be scheduled PATRICK. Patient verbalized understanding
#Hyperthyroidism
Outpatient Endocrinology
Started methimazole as per discussion with Endo
Repeated labs showed appropriate FT3 and FT4 response
#essential HTN
#Obesity with BMI 33
cont home meds
Advise to decrease calorie intake
#Mild Alk.phos elevation
resolved
With no clinical signs of abd pain
DVT ppx lovenox
GI ppx PPI
Full code
HEENT: Normocephalic
Respiratory: Clear to Auscultation
Cardiac: Regular Rhythm
Musculoskeletal: No Clubbing and No Cyanosis
Neuro: Awake, Alert, Oriented and AO x 3
Psych: Calm
Anticipated Discharge: Today
Subjective/Interval History
-
Date of Service: December 07, 2023
has some pain
Objective Data
-
Vital Signs:
Vital Signs
Temp Pulse Resp BP Pulse Ox
98.1 F 88 18 108/59 99
12/07/23 07:25 12/07/23 07:25 12/07/23 07:25 12/07/23 07:25 12/07/23 07:25
I&O
12/06/23 12/07/23 12/08/23
06:59 06:59 06:59
Intake Total 325 / 325 720 / 720
Output Total 450 / 450
Balance 325 / 325 270 / 270
[2023-12-07 11:54] LABS: Glucose - Point of Care 142 mg/dl (70-99)
--- NOTE | 2023-12-07 15:18 | PN.CDI ---
CDI
- -
CDI:
Physician Documentation Request
Admit Date: 11/12/23 13:29
Dear Doctor Juan,
Patient admitted with right knee septic arthritis.
12/06 PN, 'Joint aspiration with MSSA...ID follows, cont Ancef IV for 8 weeks.'
11/14 T max 101.2 and HR>90.
Please clarify which of the following most accurately describes the status of the patient's infection:
Sepsis evolved during hospitalization
Right sepsis knee only
Other
Sepsis
- Systemic manifestations of infection, with 2 or more SIRS criteria which include:
- Fever >100.4 degrees F or hypothermia < 96.8 degrees F
- Leukocytosis - WBC > 12,000 or leukopenia - WBC < 4,000 or > 10% bands
- Tachycardia > 90 beats per minute
- Tachypnea - RR > 20 breaths per minute or PaCO2 , 32mmHg
Source: Merck Manual 2013
- Indicate the known or suspected organism
- Indicate the known or suspected underlying infection, such as septic knee arthritis
- Indicate if a suspected bacterial infection of unknown source
- Indicate if associated with an implanted device such as a F/C, PICC line, orthopedic hardware, etc.
Localized Infection Only, Without Systemic Illness
- indicate the site/source, such as septic knee arthritis
Bacteremia
- Abnormal lab finding only, does not indicate systemic illness
Other
Unable to Determine
Use of terms such as suspected, likely, concern for, or probable (associated with a specific diagnosis that is being evaluated, monitored, or treated as if it exists) are acceptable and can be coded in the inpatient setting, when documented at the
time of discharge.
Thank you,
Dorcas CARTER,RN,CCDS
CDI Specialist
Available via tiger text
Please use your independent medical judgment in providing your response.
[2023-12-07 15:25] VITALS: BP 115/79
[2023-12-07 16:00] VITALS: BP 120/77; PULSE 88; O2SAT 99
--- NOTE | 2023-12-07 16:31 | CM ---
Addendum entered by Ariana Hagen 12/08/23 11:23:
Ambulance transport is arranged for 11:30 this am. Pt's daughter was provided with the cost ($340) and the phone number to call to provide payment. Daughter asked if there was a discount available, which I told her was already discounted. She
will call to make payment.
Janine's other daughter will be coming in to take the wheelchair and commode to the home.
Plan: Discharge to home with [facility] for IV abx teaching, RN and PT. [facility] for delivery of the medication.
[facility]
Addendum entered by Ariana Hagen 12/08/23 10:04:
Awaiting cost of ambulance transport which will need to be paid by pt/family prior to discharge. CM to follow up with Janine's daughter once cost is determined.
Original Note:
CM notified that medication has been approved by [place] and will be delivered by [facility] to home tomorrow approximately 1pm. [facility] notified of same and will call Janine's daughter this evening to confirm their visit time.
W/C van transport has been requested, however CM advised that the 2 step entry will be traversed by the W/C van crew. I spoke to Marcio with [facility] and she will review the patient chart to determine what will be covered.
CM to follow up with Marcio in AM.
[2023-12-07 17:45] LABS: Glucose - Point of Care 108 mg/dl (70-99)
[2023-12-07] MEDS: LOVENOX 40 MG SC (18:20)
[2023-12-07 21:17] LABS: Glucose - Point of Care 116 mg/dl (70-99)
[2023-12-07] MEDS: FLUSH (NSS) 1 FLUSH IV (21:58)
[2023-12-07 23:50] VITALS: BP 106/53
[2023-12-08] MEDS: ULTRAM 25 MG PO ×3 (00:09→12:17)
[2023-12-08] MEDS: ANCEF 10 IV (06:19)
[2023-12-08] MEDS: FLUSH (NSS) 1 FLUSH IV (06:19)
[2023-12-08 08:14] VITALS: BP 114/74
[2023-12-08 08:59] LABS: Glucose - Point of Care 154 mg/dl (70-99)
[2023-12-08] MEDS: ROXICODONE 10 MG PO (09:40)
[2023-12-08] MEDS: VISBIOME 2 CAP PO (10:03)
[2023-12-08] MEDS: TAPAZOLE 10 MG PO (10:03)
[2023-12-08] MEDS: NEURONTIN 100 MG PO (10:04)
[2023-12-08] MEDS: COLACE PO (10:04)
[2023-12-08] MEDS: TYLENOL 1000 MG PO (10:04)
[2023-12-08] MEDS: PROTONIX 40 MG PO (10:04)
--- NOTE | 2023-12-08 10:55 | W.PN.HOSP.TC ---
Addendum entered and electronically signed by Quan Martinez MD 12/09/23 11:04:
sepsis 2/2 right knee septic arthritis
Addendum entered and electronically signed by Quan Martinez MD 12/08/23 10:57:
needs wheelchair at home to complete her daily activities as well as why she needs elevated leg rests.
Original Note:
Today's Communication/Plan
-
Monitor vital signs
see plan
for discharge today
Pain control
Time of discharge 37 minutes
Assessment / Plan
Assessment / Plan
63[place] with PMHx of advanced b/l knee OA had hyaluronic injection into her knees in September 2023 and after the injection into R knee - developed worsening swelling and pain. [place] to [place].
Found MSSA septic arthritis. Discharge complicated by the need in 6 weeks of IV Abx and [place] recently in [place] medical [place]. She is a [employer] cast[employer]. CM involved - received MA and plan for home infusion vs rehab, however
apparently insurance does not cover rehab. Family agreed for home Abx infusion teaching will be done inpatient on 12/06/23 and patient will be able to be d/c. If teaching not successful in the hospital - visiting RN can start on 12/07/23 at home with
teaching
A/P:
#R knee septic arthritis related to recent hyaluronic injection
Joint aspiration with MSSA
ID follows, cont Ancef IV for 8 weeks. Offered possible oral Abx if patient wants to self-monitor at home however patient does not want to accept that option,since it is not optimal treatment. cefazolin 2g IV q8h x 6 weeks through 12/24/23 per ID.
patient family will also assist in abx
Continue cefazolin 2g IV q8h x 6 weeks through 12/24/23.
- Follow weekly CBC, CMP, CRP q Wednesday per ID
PT/OT and emphasize need to improve ROM
Pain mgmt; still has pain; would start tramadol scheduled so she doesn't have to use much oxy.
MRI knee - could not tolerate positioning, cancelled since initially patient is improving
stitches has been removed by orthopedics. Patient will follow-up with orthopedics outpatient. Knee reviewed on 12/01/23 - appropriate healing. PT and increasing ROM advised
With Hx of PUD - advised Voltaren upon d/c, Oxycodone. PPI added
PT/OT
Rx for rolling walker, bedside commode and WC are left in paper chart
#new onset DM
Accuchecks, Insulin SS, DM diet
Counseled on yearly dilated eye exam, renal disease check and podiatry - first appointments recommended to be scheduled PATRICK. Patient verbalized understanding
#Hyperthyroidism
Outpatient Endocrinology
Started methimazole as per discussion with Endo
Repeated labs showed appropriate FT3 and FT4 response
#essential HTN
#Obesity with BMI 33
cont home meds
Advise to decrease calorie intake
#Mild Alk.phos elevation
resolved
With no clinical signs of abd pain
DVT ppx lovenox
GI ppx PPI
Full code
HEENT: Normocephalic
Respiratory: Clear to Auscultation
Cardiac: Regular Rhythm
Musculoskeletal: No Clubbing and No Cyanosis
Neuro: Awake, Alert, Oriented and AO x 3
Psych: Calm
Anticipated Discharge: Today
Subjective/Interval History
-
Date of Service: December 08, 2023
Has some pain
Objective Data
-
Vital Signs:
Vital Signs
Temp Pulse Resp BP Pulse Ox
98 F 70 18 114/74 97
12/08/23 08:14 12/08/23 08:14 12/08/23 08:14 12/08/23 08:14 12/08/23 08:14
I&O
12/07/23 12/08/23 12/09/23
06:59 06:59 06:59
Intake Total 720 / 720 600 / 600
Output Total 450 / 450
Balance 270 / 270 600 / 600
== END 2023-12-08 12:49 | disposition home health service (06) | DRG 856 ==
LOC: 4 EAST ACU 13:29
PROVIDERS: Clinical Nurse Specialist Family Health; Internal Medicine; Physician Assistant; ADMITTING PHYSICIAN Internal Medicine; CONSULT PHYSICIAN Internal Medicine Infectious Disease; CONSULT PHYSICIAN Orthopaedic Surgery; EMERGENCY PHYSICIAN Emergency Medicine
PROC: 0SBC4ZZ Excision of Right Knee Joint, Percutaneous Endoscopic Approach (ICD-10-PCS; 2023-11-12)
DX: T80.29XA Infection following other infusion, transfusion and therapeutic injection, initial encounter (principal); A41.9 Sepsis, unspecified organism; M00.061 Staphylococcal arthritis, right knee; I10 Essential (primary) hypertension; M17.0 Bilateral primary osteoarthritis of knee; E11.9 Type 2 diabetes mellitus without complications; E05.90 Thyrotoxicosis, unspecified without thyrotoxic crisis or storm; F17.200 Nicotine dependence, unspecified, uncomplicated; E66.09 Other obesity due to excess calories; Z68.33 Body mass index [BMI] 33.0-33.9, adult; Z79.899 Other long term (current) drug therapy; Y84.8 Other medical procedures as the cause of abnormal reaction of the patient, or of later complication, without mention of misadventure at the time of the procedure
CPT/HCPCS: 80048; 80053; 80061; 80076; 82962; 83036; 83735; 84100; 84439; 84443; 84481; 85025; 85027; 85652; 86140; 87040; 87070; 87075; 87147; 97110; 97116; 97163; 97167; 97530; 97535; 99285

== ENCOUNTER 2024-03-13 14:49 | Outpatient (RCR) | payer MEDICAID, SELFPAY | END 2024-03-13 23:59 | disposition home or self-care (01) | LOC: RPT 14:49 | PROVIDERS: ATTENDING PHYSICIAN Orthopaedic Surgery | DX: M25.561 Pain in right knee (principal); Z73.6 Limitation of activities due to disability | CPT/HCPCS: 97110; 97112; 97140; 97162; 97530 ==

== ENCOUNTER 2024-04-13 12:51 | Outpatient (RCR) | payer MEDICAID, SELFPAY | END 2024-04-13 23:59 | disposition home or self-care (01) | LOC: RPT 12:51 | PROVIDERS: ATTENDING PHYSICIAN Orthopaedic Surgery | DX: M25.561 Pain in right knee (principal); Z73.6 Limitation of activities due to disability | CPT/HCPCS: 97110; 97112; 97116; 97140 ==

== ENCOUNTER 2024-05-02 12:50 | Outpatient (RCR) | payer MEDICAID, SELFPAY | END 2024-05-02 23:59 | disposition home or self-care (01) | LOC: RPT 12:50 | PROVIDERS: ATTENDING PHYSICIAN Orthopaedic Surgery | DX: M25.561 Pain in right knee (principal); Z73.6 Limitation of activities due to disability; R26.2 Difficulty in walking, not elsewhere classified; M62.81 Muscle weakness (generalized) | CPT/HCPCS: 97110; 97112 ==

== ENCOUNTER 2024-06-07 12:59 | Outpatient (RCR) | payer MEDICAID, SELFPAY | END 2024-06-07 23:59 | disposition home or self-care (01) | LOC: RPT 12:59 | PROVIDERS: ATTENDING PHYSICIAN Internal Medicine Rheumatology | DX: M25.561 Pain in right knee (principal); Z73.6 Limitation of activities due to disability; R26.2 Difficulty in walking, not elsewhere classified; M62.81 Muscle weakness (generalized) | CPT/HCPCS: 97110; 97112; 97116; 97530 ==

== ENCOUNTER 2024-06-14 14:15 | Outpatient (RCR) | payer MEDICAID, SELFPAY | END 2024-06-14 23:59 | disposition home or self-care (01) | LOC: RPT 14:15 | PROVIDERS: ATTENDING PHYSICIAN Internal Medicine Rheumatology | DX: M25.561 Pain in right knee (principal); Z73.6 Limitation of activities due to disability; R26.2 Difficulty in walking, not elsewhere classified; M62.81 Muscle weakness (generalized) | CPT/HCPCS: 97110; 97140; 97530 ==

== ENCOUNTER 2024-08-10 13:00 | Outpatient (RCR) | payer MEDICAID, SELFPAY | END 2024-08-10 23:59 | disposition home or self-care (01) | LOC: RPT 13:00 | PROVIDERS: ATTENDING PHYSICIAN Internal Medicine Rheumatology | DX: M25.512 Pain in left shoulder (principal); M25.551 Pain in right hip; M15.9 Polyosteoarthritis, unspecified; M17.0 Bilateral primary osteoarthritis of knee; R26.89 Other abnormalities of gait and mobility; Z73.6 Limitation of activities due to disability | CPT/HCPCS: 97010; 97110; 97116; 97162 ==

== ENCOUNTER 2024-09-04 13:52 | Outpatient (RCR) | payer MEDICAID, SELFPAY | END 2024-09-04 23:59 | disposition home or self-care (01) | LOC: RPT 13:52 | PROVIDERS: ATTENDING PHYSICIAN Internal Medicine Rheumatology | DX: M25.512 Pain in left shoulder (principal); M25.551 Pain in right hip; M15.9 Polyosteoarthritis, unspecified; M17.0 Bilateral primary osteoarthritis of knee; Z73.6 Limitation of activities due to disability; R26.89 Other abnormalities of gait and mobility | CPT/HCPCS: 97010; 97110 ==

== ENCOUNTER 2024-10-06 15:02 | Outpatient (RCR) | payer MEDICAID, SELFPAY | END 2024-10-11 09:19 | disposition home or self-care (01) | LOC: RPT 15:02 | PROVIDERS: ATTENDING PHYSICIAN Internal Medicine Rheumatology | DX: M25.512 Pain in left shoulder (principal); M25.551 Pain in right hip; M17.0 Bilateral primary osteoarthritis of knee; R26.89 Other abnormalities of gait and mobility; Z73.6 Limitation of activities due to disability; M15.9 Polyosteoarthritis, unspecified | CPT/HCPCS: 97010; 97110; 97530 ==